=== PATIENT | female | born 1995 | race Caucasian/White ===

== ENCOUNTER → 2023-01-15 13:11 | Outpatient (BNVA) | payer OTHER, SELFPAY | PROVIDERS: PCP Nurse Practitioner Adult Health; Visit Provider Physician Assistant ==

== ENCOUNTER 2023-02-16 13:16 | Outpatient (AMB) | payer OTHER, SELFPAY ==
--- NOTE | 2023-02-16 13:19 | MHC.OFFVISWM ---
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 Allergies benzonatate Allergy (Verified 02/16/23 13:26) Hives jackfruit Allergy (Intermediate, Uncoded 02/16/23 13:26) Swelling almonds Allergy (Mild, Uncoded 02/16/23 13:26) throat itching Medication List - Last Reconciled 02/16/23 by GRACIE Ruiz cholecalciferol (vitamin D3) 25 mcg PO DAILY citalopram 40 mg PO DAILY cranberry 400 mg PO DAILY desloratadine 5 mg PO QID epinastine 0.05% 1 drp ophthalmic (eye) Q12H epinephrine 0.3 mg IM Q4H PRN fluticasone propionate 50 mcg/actuation (Flonase Allergy Relief) 1 spray intranasal DAILY fluticasone propionate 110 mcg/actuation (Flovent HFA) 1 puff inhalation BID norethindrone (contraceptive) 0.35 mg PO DAILY HPI HPI Comments History of Present Illness Details Pt is here to start the [facility] weight loss program. She heard about our program from her family. Her goal is to lose weight and achieve a healthy lifestyle as well as to improve, if not resolve, obesity related medical conditions, including sarah, htn. She reports first being concerned about her weight lifelong, worse in the last 3-4 years, highest weight to date was 279. Current weight is 279 with a BMI of 47.9. She has tried multiple methods of weight loss including fad diets, diet pills without permanent results. She lives alone. 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 She wakes at:?7 am, and goes to bed at?11 pm. Dinner is at 7 pm. Breakfast: skip or yogurt or pudding or oatmeal AM snack: skip Lunch: fast food PM snack: skip Dinner: pasta, After dinner: skip Other snacks: chips Liquids: 16 oz water, 2 cans diet coke, 100 oz iced tea or lemonade Alcohol/marijuana/tobacco intake: 2-4 drinks per week, no cannabis, no tobacco Exercise: none, gym membership at [employer] in [place]. GERD score: 21 MYRTLE score: 3 ESS score: 17 QOL score: 117 PFSH Surgical History Hx of colonoscopy Hx of wisdom tooth extraction Family History Mother Asthma Hypothyroid Restless leg syndrome Anxiety Sleep disorder Father GERD (gastroesophageal reflux disease) Seasonal allergies Brother No problems noted. Brother Seasonal allergies Maternal Grandfather Heart attack Social History Alcohol intake: current Alcohol intake frequency: a few times a week Patient Tobacco Use Status: Never used Tobacco Review of Systems Const All systems reviewed & are unremarkable except as noted in HPI and below Physical Exam Vital Signs: Last Vital Signs Temp 98.1 F 02/16/23 13:29 Pulse 92 02/16/23 13:29 BP 129/73 02/16/23 13:29 Pulse Ox 96 02/16/23 13:29 Oxygen Delivery Method Room Air 02/16/23 13:29 BMI result Body Mass Index 47.9 Const General: cooperative, healthy appearing and no acute distress Orientation/consciousness: patient oriented x3 HEENT Head: Yes normal to inspection Ears: hearing grossly normal bilaterally General nose exam: Normal external nose present Face and sinus: Yes normal facial exam Eyes General: appearance normal, both eyes and all related structures Resp Effort & Inspection: normal respiratory effort Auscultation: clear to auscultation bilaterally Cardio Rate: regular rate Rhythm: regular rhythm Heart sounds: S1 normal heart sound present and S2 normal heart sound present GI Inspection: Yes normal to inspection, No distended and Yes obesity Palpation (GI): Soft to palpation, nontender and no guarding Auscultation: normal bowel sounds Skin General skin exam: no rashes or lesions noted Neuro General: patient oriented x3 Extrem General: No edema Psych Appearance: grossly normal Mental Status: mental status grossly normal Speech and movement: Normal speech and movement present Affect: normal affect Attitude: cooperative Assessment & Plan Assessment & Plan (1) Morbid obesity: Code(s): E66.01 - Morbid (severe) obesity due to excess calories Plan: This is a?27 yo female who will start our SWL program to prepare for bariatric surgery.? Blood work, h pylori , CXR, ECG, Abd US and UGI have been ordered. She is being scheduled for RD and BH initial consultations. She will start SWL classes and watch the first three videos before her next appointment. ? Adequate sleep of 7-8 hours per night discussed, awakening at 7 am and going to bed around 11 pm ? Purchase body composition analyzer scale (Blair bryan or Bret recommended) and check weight weekly. The best time to do this is first thing in the morning after going to the bathroom. 1. Nutritional counseling: Be sure to careful read the number of scoops per shake Start with 3 Premier Protein shakes ([employer], [employer], [facility]), (1 scoop in 8 oz low fat unsweetened almond milk or water each) First shake at 8am-10am, Second shake at 12am-2pm 1 protein bar (Fulfil bars at [employer], [facility], or [employer]) at 4pm-6pm. You may substitute a citizen of [place] yogurt w fresh berries as an alternative for the protein bar if you'd like. Dinner at 7pm (8 forks of protein and 8 forks of salad/vegetables). Meal to include lean meat (beef, fish, pork, turkey, chicken), cooked vegetables or a salad with olive oil and/or fruits (berries, pears, apples, kiwi). Avoid salt, breads, potatoes, rice, pasta, desserts. Another shake with 1 scoop in 8 oz unsweetened almond milk at 8pm-10pm. Try to drink 64 oz of water daily and avoid soda and juices. ?2. Each shake would be drunk slowly, like coffee in a period of 2 hours. ?3. Cut each bar in 4 pieces and eat each piece in 30 min ?to make each bar last 2 hours. ?4. I emphasized the importance of measuring accurately the food portion and measure it carefully when serving the food on the plate ?5. The meal portions include 8 full-size forks of meat and 8 full-size forks of salad. You always eat the meat portion but you can replace up to half of the forks of salad/vegetables with rice, potatoes or pasta, or a fruit ?if you like. The less you do it the better weight loss will be. ?6. One full-size fork is what can be scooped on the fork without falling aside and not what can be bit with the fork. Use regular forks like those you find in a typical restaurant. ?7.? Please send me weight measurements as soon as possible and then once a week. Always include your diet and exercise plan. Alternatively come weekly at the office for weight checks and send me the measurements. ?8. Exercise counseling: Begin by watching a stretching for beginners video. Start slowly and begin to stretch your muscles. You should do this before and after each exercise session to prevent injury. Please go to [facility] gym near your home. Ask the title manager or one of the trainers how to use the machines if you are unfamiliar with them. Start elliptical with a resistance of 2. Increase resistance by 1 every 3 min to your most comfortable resistance with a max resistance of 8. Reduce the resistance by 1 every 3 minutes back down to 2 and repeat cycles for 300 calories. Alternatively, start treadmill with a speed of 3.0 and incline of 0, increasing incline by 1 every 3 minutes to the highest comfortable level (max 6 for now) then decrease in the same fashion. Repeat process to a goal of 300 calories. Goal of 2000 calories burned or more weekly. You may also consider use of the stationary bike. The easiest would be to chose the fat-burn or interval training program on the machine and do this until you reach the 300 calorie goal. Alternatively, you can manually adjust the resistance in a similar fashion as mentioned above, (resistance of 2-8 with a goal speed of 12 mph). Tracking calories is essential. 9. Alternatively start walking outside daily, tracking calories with a goal of 300 calories per day, daily. You can download the [employer] which can track your time, distance and calories while walking outside. You press start in the corbin when you start and then stop when you are finished. 10.? It is important to avoid and for at least 18 months postoperatively and it has been discussed at the information session 11. Please get labs, EKG and chest X-Ray within 1 week. 12. Discussed and answered all questions regarding?obtained consent to participate in the [facility]?Registry. 13. Please follow the diet plan exactly, without any change. If you do not like something about the plan or you feel hungry, you need to communicate with me so I can help you revise the plan. You should not change the plan yourself. Text me at [phone] 14. Goal is to lose at least 12 pounds in the first month 15. Goal is to lose 10% of your weight before surgery, which is about 28 lbs. Ultimate weight goal: 251 lbs before surgery Patient is morbidly obese and is not considered stable at this time.?I spent a total of 70 minutes reviewing/updating records, examining the patient and counseling the patient on weight management as detailed above. Orders: Orders Vitamin B12 and Folate Today E66.01 - Morbid (severe) obesity due to excess calories, I10 - Essential (primary) hypertension Comprehensive Met. Panel Today E66.01 - Morbid (severe) obesity due to excess calories, I10 - Essential (primary) hypertension C Reactive Protein Today E66.01 - Morbid (severe) obesity due to excess calories, I10 - Essential (primary) hypertension Ferritin Today E66.01 - Morbid (severe) obesity due to excess calories, I10 - Essential (primary) hypertension Hemoglobin A1c Today E66.01 - Morbid (severe) obesity due to excess calories, I10 - Essential (primary) hypertension Insulin Today E66.01 - Morbid (severe) obesity due to excess calories, I10 - Essential (primary) hypertension IRON PROFILE Today E66.01 - Morbid (severe) obesity due to excess calories, I10 - Essential (primary) hypertension Lipid Panel Today E66.01 - Morbid (severe) obesity due to excess calories, I10 - Essential (primary) hypertension PTHI Today E66.01 - Morbid (severe) obesity due to excess calories, I10 - Essential (primary) hypertension TSH reflex Free T4 Today E66.01 - Morbid (severe) obesity due to excess calories, I10 - Essential (primary) hypertension Vitamin A Today E66.01 - Morbid (severe) obesity due to excess calories, I10 - Essential (primary) hypertension Vitamin B1 Today E66.01 - Morbid (severe) obesity due to excess calories, I10 - Essential (primary) hypertension Vitamin D 25-OH Total Today E66.01 - Morbid (severe) obesity due to excess calories, I10 - Essential (primary) hypertension Zinc Today E66.01 - Morbid (severe) obesity due to excess calories, I10 - Essential (primary) hypertension ECG 12 lead EKG Today E66.01 - Morbid (severe) obesity due to excess calories, I10 - Essential (primary) hypertension FL upper GI w air Today E66.01 - Morbid (severe) obesity due to excess calories, I10 - Essential (primary) hypertension Complete Blood Count Auto Diff Today E66.01 - Morbid (severe) obesity due to excess calories, I10 - Essential (primary) hypertension H Pylori Breath Test Today E66.01 - Morbid (severe) obesity due to excess calories, I10 - Essential (primary) hypertension US abdomen comp w elastography Today E66.01 - Morbid (severe) obesity due to excess calories, I10 - Essential (primary) hypertension XR chest 2V Today E66.01 - Morbid (severe) obesity due to excess calories, I10 - Essential (primary) hypertension Referrals Behavioral Health Referral E66.01 - Morbid (severe) obesity due to excess calories, I10 - Essential (primary) hypertension Nutrition/Dietitian Referral E66.01 - Morbid (severe) obesity due to excess calories, I10 - Essential (primary) hypertension Coding Level of Care Code New Pt Level 5 (61527) Diagnoses Morbid obesity E66. Time Spent (min) 70
[2023-02-16 13:29] VITALS: BP 129/73; PULSE 92; TEMP 36.7; O2SAT 96; BMI 47.9
== END 2023-02-16 14:23 | disposition home or self-care (01) ==
PROVIDERS: PCP Nurse Practitioner Adult Health; Visit Provider Physician Assistant Surgical
DX: E66.01 Morbid (severe) obesity due to excess calories (principal); Z68.42 Body mass index [BMI] 45.0-49.9, adult
CPT/HCPCS: 99205

== ENCOUNTER → 2023-02-16 13:16 | Outpatient (BNVA) | payer OTHER, SELFPAY | PROVIDERS: PCP Nurse Practitioner Adult Health; Visit Provider Physician Assistant Surgical ==

== ENCOUNTER 2023-02-16 16:07 | Outpatient (REF) | payer OTHER, SELFPAY ==
[2023-02-22 14:57] LABS: H Pylori Breath Test Negative (Negative)
== END 2023-02-16 16:08 | disposition home or self-care (01) ==
LOC: HO.LNP 16:07
PROVIDERS: Visit Provider Physician Assistant Surgical
DX: E66.01 Morbid (severe) obesity due to excess calories (principal); I10 Essential (primary) hypertension; Z11.0 Encounter for screening for intestinal infectious diseases
CPT/HCPCS: 83013

== ENCOUNTER 2023-02-20 08:09 | Outpatient (REF) | payer OTHER, SELFPAY ==
--- NOTE | ~2023-02-20 | XR_ITS ---
EXAMINATION: XR CHEST CLINICAL INFORMATION: Morbid obesity COMPARISON: None available. TECHNIQUE: 2 views of the chest were obtained. FINDINGS: No significant abnormality is noted involving the heart, lungs, mediastinum, bony thorax or soft tissues. XR/XR chest 2V IMPRESSION: No acute disease.
--- NOTE | 2023-02-20 08:16 | ECG_ITS ---
Test Reason : morbid obesity Blood Pressure : / mmHG Vent. Rate : 083 BPM Atrial Rate : 083 BPM P-R Int : 150 ms QRS Dur : 074 ms QT Int : 362 ms P-R-T Axes : 052 068 045 degrees QTc Int : 425 ms Normal sinus rhythm Normal ECG No previous ECGs available Referred By: Trevor Cerad Electronically Signed By:ELEAZAR RANDALL MD
[2023-02-20 08:39] LABS: MANUAL DIFF FLAG NO
[2023-02-20 08:58] LABS: Basophils Percent Auto 0.5 % (0-2); Eosinophils Absolute Auto 0.1 X10*3/uL (0.0-0.4); Eosinophils Percent Auto 1.8 % (0-4); Hematocrit 39.1 % (37.0-47.0); Hemoglobin 13.2 g/dl (12.0-16.0); Imm Gran Abs Auto 0.02 X10*3/uL (0.00-0.03); Imm Gran Pct Auto 0.3 % (0.0-0.4); Lymphocytes Absolute Auto 1.8 X10*3/uL (1.2-4.9); Lymphocytes Percent Auto 29.3 % (20-40); Mean Corpuscular HGB Conc 33.8 g/dl (31.0-35.0); Mean Corpuscular Hemoglobin 30.5 pg (27.0-33.0); Mean Corpuscular Volume 90.3 fL (80.0-98.0); Mean Platelet Volume 10.1 fL (9.4-12.3); Monocytes Absolute Auto 0.5 X10*3/uL (0.1-1.2); Monocytes Percent Auto 7.5 % (2-11); Neutrophils Absolute Auto 3.8 x10*3/uL (2.0-8.3); Neutrophils Percent Auto 60.6 % (45-73); Platelet Count 284 X10*3/uL (160-400); Red Blood Count 4.33 X10*6/uL (4.20-5.50); Red Cell Distribution Width 12.3 % (11.0-16.0); White Blood Count 6.3 X10*3/uL (4.8-10.8)
[2023-02-20 09:08] LABS: Estimated Average Glucose 85 mg/dL; Hemoglobin A1C 93.6048 umol/L; Hemoglobin A1c % 4.6 %
[2023-02-20 09:34] LABS: Alanine Aminotransferase 18 U/L (0-31); Albumin Level 4.2 g/dL (3.5-5.0); Alkaline Phosphatase 148 U/L (39-117); Anion Gap 17 (12-20); Aspartate Amino Transferase 18 U/L (5-31); Bilirubin Total 0.6 mg/dL (0.0-1.0); Blood Urea Nitrogen 14 mg/dL (9-16); C Reactive Protein 2.77 mg/dL (< or = 0.50); Calcium 9.5 mg/dL (8.4-10.2); Carbon Dioxide 19 mmol/L (22-29); Chloride 105 mmol/L (96-108); Cholesterol 192 mg/dL; Estimated Glomerular Filt Rate > 60; Glucose Random 74 mg/dL (60-115); HDL Cholesterol 35 mg/dL; Iron 75 mcg/dL (30-160); LDL Cholesterol Calculated 141 mg/dl; Percent Iron Saturation 30 % (15-50); Potassium 4.3 mmol/L (3.3-5.1); Sodium 137 mmol/L (135-145); Total Iron Binding Capacity 249 mcg/dL (228-428); Total Protein 7.3 g/dL (6.5-8.0); Triglycerides 82 mg/dL; Unsaturated Iron Binding 174 ug/dL
[2023-02-20 10:01] LABS: Ferritin 128 ng/mL (10-122); Insulin 6 uU/mL (2-29); TSH reflex Free T4 1.49 uIU/mL (0.32-4.0); Vitamin D 25-OH Total 28.6 ng/mL (>30)
[2023-02-20 10:02] LABS: Folate 14.4 ng/mL (> or = 4.0); Vitamin B12 530 pg/mL (200-900)
[2023-02-23 13:23] LABS: Calcium (PTHI) 9.3 mg/dL (8.6-10.2); PTHI 68 pg/mL (16-77)
[2023-02-25 01:23] LABS: Zinc 79 mcg/dL (60-130)
[2023-02-26 02:48] LABS: Vitamin A 32 mcg/dL (38-98)
[2023-02-26 15:58] LABS: Vitamin B1 10 nmol/L (8-30)
== END 2023-02-20 08:10 | disposition home or self-care (01) ==
LOC: HO.LAB 08:09
PROVIDERS: Visit Provider Physician Assistant Surgical
DX: E66.01 Morbid (severe) obesity due to excess calories (principal); I10 Essential (primary) hypertension
CPT/HCPCS: 36415; 71046; 80053; 80061; 82306; 82607; 82728; 82746; 83036; 83525; 83540; 83970; 84425; 84443; 84590; 84630; 85025; 86140; 93005

== ENCOUNTER → 2023-02-20 08:16 | Outpatient (BNV) | payer OTHER, SELFPAY | PROVIDERS: Visit Provider Internal Medicine Cardiovascular Disease | DX: E66.01 Morbid (severe) obesity due to excess calories (principal) | CPT/HCPCS: 93010 ==

== ENCOUNTER 2023-03-03 13:14 | Outpatient (AMB) | payer OTHER, SELFPAY ==
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
== END 2023-03-03 13:45 | disposition home or self-care (01) ==
LOC: HO.HBST 13:14
PROVIDERS: Referring Provider Physician Assistant Surgical; Visit Provider Counselor Mental Health
DX: F33.1 Major depressive disorder, recurrent, moderate (principal); E66.01 Morbid (severe) obesity due to excess calories; Z68.42 Body mass index [BMI] 45.0-49.9, adult
CPT/HCPCS: 90791

== ENCOUNTER → 2023-03-03 13:14 | Outpatient (BNVA) | payer OTHER, SELFPAY | PROVIDERS: Referring Provider Physician Assistant Surgical; Visit Provider Counselor Mental Health ==

== ENCOUNTER 2023-03-06 08:05 | Outpatient (REF) | payer OTHER, SELFPAY ==
--- NOTE | ~2023-03-06 | US_ITS ---
EXAMINATION: US COMPLETE ABDOMEN WITH LIVER ELASTOGRAPHY CLINICAL INFORMATION: Obesity. COMPARISON: None available. TECHNIQUE: Real-time imaging of the abdominal viscera. Noninvasive ultrasound liver fibrosis assessment is performed using Naman ElastPQ point quantification shear wave elastography (2D-SWE) with a C5-2 MHz transducer. Multiple elastography samples are obtained. FINDINGS: PANCREAS: Limited. The visualized pancreatic head and body are normal in appearance. The remainder of the pancreas is obscured from visualization by the overlying bowel gas. ABDOMINAL AORTA: The proximal, middle, and distal aortic segments are normal in caliber. INFERIOR VENA CAVA: Visualized portions are normal. LIVER: Normal. The liver demonstrates normal size, contour and echogenicity. No focal lesion or intrahepatic biliary duct dilatation. The right lobe measures 14.8 cm in length. The left lobe measures 8.8 cm in length. Portal flow is towards the liver (hepatopetal). Shear wave liver elastography median stiffness is 1.25 m/s (reference: normal median stiffness is 1.3 m/s or less). IQR/median stiffness to assess sampling precision is 0.07 (reference: good quality data set is IQR/median stiffness of 0.15 or less). GALLBLADDER: Normal. The gallbladder is physiologically distended without evidence of stones, sludge, polyps, wall thickening or pericholecystic fluid. COMMON BILE DUCT: Normal in caliber measuring 0.2 cm in diameter. RIGHT KIDNEY: Normal. No hydronephrosis. No renal calculi or focal parenchymal lesions. The kidney measures 10.5 cm in maximum dimension. LEFT KIDNEY: Normal. No hydronephrosis. No renal calculi or focal parenchymal lesions. The kidney measures 11.9 cm in maximum dimension. SPLEEN: Normal. The spleen measures 11.8 cm in maximum dimension. FREE FLUID: None. US/US abdomen comp w elastography IMPRESSION: 1. Unremarkable ultrasound examination of the abdomen, with imaging the pancreatic tail technically limited. 2. Liver elastography: Measurements are consistent with a high probability of normal liver stiffness. REFERENCE: Society of Radiologists in Ultrasound Liver Stiffness Thresholds (2020): LIVER STIFFNESS THRESHOLDS: *Liver Stiffness equal or less than 1.3 m/s: High probability of being normal. *Liver Stiffness less than 1.7 m/s: In the absence of other known clinical signs, rules out compensated advanced chronic liver disease. *Liver Stiffness 1.7-2.1 m/s: Suggestive of compensated advanced chronic liver disease but need further test for confirmation. *Liver Stiffness over 2.1 m/s: Rules in compensated advanced chronic liver disease. *Liver Stiffness over 2.4 m/s: Suggestive of clinically significant portal hypertension. QUALITY OF DATA SET: *IQR/Median value equal or less than 0.15 implies a quality data set. *IQR/Median value over 0.15 implies a poor quality data set. SIGNIFICANT CHANGE FROM PRIOR EXAM: Significant change if liver stiffness measurement is 10% or greater from prior exam. OTHER CONSIDERATIONS: The stage of liver fibrosis may be overestimated in the setting of acute hepatitis, liver inflammation, elevated liver function tests, hepatic vascular congestion, obstructive cholestasis, non-fasting state, and infiltrative diseases such as amyloidosis and lymphoma. In some patients with NAFLD, the liver stiffness thresholds for compensated advanced chronic liver disease may be lower. In causes other than viral hepatitis and NAFLD, liver stiffness thresholds are not well established.
== END 2023-03-06 08:06 | disposition home or self-care (01) ==
LOC: HO.US 08:05
PROVIDERS: Visit Provider Physician Assistant Surgical
DX: E66.01 Morbid (severe) obesity due to excess calories (principal); I10 Essential (primary) hypertension
CPT/HCPCS: 76705; 76981

== ENCOUNTER → 2023-03-09 14:24 | Outpatient (BNVA) | payer OTHER, SELFPAY | PROVIDERS: Referring Provider Physician Assistant Surgical; Visit Provider Dietitian, Registered | DX: Z01.818 Encounter for other preprocedural examination (principal); Z71.3 Dietary counseling and surveillance | CPT/HCPCS: 97802 ==

== ENCOUNTER 2023-03-17 15:48 | Outpatient (AMB) | payer OTHER, SELFPAY ==
--- NOTE | 2023-03-17 15:51 | A.OFFVIS_ITS ---
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 Allergies benzonatate Allergy (Verified 03/17/23 15:56) Hives jackfruit Allergy (Intermediate, Uncoded 02/16/23 13:26) Swelling almonds Allergy (Mild, Uncoded 02/16/23 13:26) throat itching Medication List - Last Reconciled 03/17/23 by GRACIE Ruiz cholecalciferol (vitamin D3) 25 mcg PO DAILY citalopram 40 mg PO DAILY cranberry 400 mg PO DAILY desloratadine 5 mg PO QID epinastine 0.05% 1 drp ophthalmic (eye) Q12H epinephrine 0.3 mg IM Q4H PRN fluticasone propionate 50 mcg/actuation (Flonase Allergy Relief) 1 spray intranasal DAILY fluticasone propionate 110 mcg/actuation (Flovent HFA) 1 puff inhalation BID lisinopril 20 mg PO DAILY norethindrone (contraceptive) 0.35 mg PO DAILY vitamin A 1 cap PO DAILY HPI HPI Comments History of Present Illness Details The patient is a pleasant 27 year old female who returns to the clinic for pre-operative surgical weight loss management. They were last seen in the office on 02/16/23, recorded weight at that time was 279 pounds, with a BMI of 47.9. Today's weight is 265.8 pounds and BMI is 45.6. There has been a weight loss of 13.2 pounds since initiating the surgical weight loss program on 02/16/23 with a total body weight loss of 4.7 %. Pre op work up completed as follows: SWL classes:? []/8 BH appts: f/u 03/26/23 ? ? RD appts: cleared-03/09/23 Labs: 02/20/23-low A,D H. pylori: 02/16/23-neg CXR: 02/20/23-nad EK02/20/23-normal ABD U/S: 03/06/23-normal UGI: 05/11/23 The patient reports she is doing very well and has no complaints. Current meal plan includes: 2 Premier Protein shakes ([employer], [employer], [facility]), First shake, 2 scoops at 8am-10am, Second shake, 1 scoop at 12am-2pm 1 protein bar (Fulfil bars at [employer], [facility], or [employer]) at 4pm-6pm. You may substitute a somali yogurt w fresh berries as an alternative for the protein bar if you'd like. Dinner at 7pm (8 forks of protein and 8 forks of salad/vegetables). Drinking 50-60 oz of water Current exercise plan includes: gym daily treadmill or bike 300 calories. PFSH Surgical History Hx of colonoscopy Hx of wisdom tooth extraction Family History Mother Asthma Hypothyroid Restless leg syndrome Anxiety Sleep disorder Father GERD (gastroesophageal reflux disease) Seasonal allergies Brother No problems noted. Brother Seasonal allergies Maternal Grandfather Heart attack Social History Alcohol intake: current Alcohol intake frequency: a few times a week Patient Tobacco Use Status: Never used Tobacco Review of Systems Const All systems reviewed & are unremarkable except as noted in HPI and below Physical Exam Vital Signs: Last Vital Signs Temp 98.2 F 03/17/23 15:59 Pulse 81 03/17/23 15:59 BP 130/69 03/17/23 15:59 Pulse Ox 96 03/17/23 15:59 Oxygen Delivery Method Room Air 03/17/23 15:59 BMI result Body Mass Index 45.6 Const General: healthy appearing and no acute distress Resp Effort & Inspection: normal respiratory effort Auscultation: clear to auscultation bilaterally Cardio Rate: regular rate Rhythm: regular rhythm GI Auscultation: normal bowel sounds Extrem General: Yes normal to inspection Assessment & Plan Assessment & Plan (1) Morbid obesity: Code(s): E66.01 - Morbid (severe) obesity due to excess calories Plan: Making good progress Continue meal plan Increase incline on treadmill and keep speed 3.2 RTC 1 month reminded of upcoming appts Coding Level of Care Code Est Pt Level 3 (21053) Diagnoses Morbid obesity E66.01
[2023-03-17 15:59] VITALS: BP 130/69; PULSE 81; TEMP 36.8; O2SAT 96; BMI 45.6
== END 2023-03-17 16:25 | disposition home or self-care (01) ==
PROVIDERS: PCP Nurse Practitioner Adult Health; Visit Provider Physician Assistant Surgical
DX: E66.01 Morbid (severe) obesity due to excess calories (principal); Z68.42 Body mass index [BMI] 45.0-49.9, adult
CPT/HCPCS: 99213

== ENCOUNTER → 2023-03-17 15:48 | Outpatient (BNVA) | payer OTHER, SELFPAY | PROVIDERS: PCP Nurse Practitioner Adult Health; Visit Provider Physician Assistant Surgical ==

== ENCOUNTER 2023-03-26 13:05 | Outpatient (AMB) | payer OTHER, SELFPAY ==
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
== END 2023-03-26 13:25 | disposition home or self-care (01) ==
LOC: HO.HBST 13:05
PROVIDERS: PCP Nurse Practitioner Adult Health; Visit Provider Counselor Mental Health
DX: F33.1 Major depressive disorder, recurrent, moderate (principal); E66.01 Morbid (severe) obesity due to excess calories; Z68.42 Body mass index [BMI] 45.0-49.9, adult
CPT/HCPCS: 90832

== ENCOUNTER → 2023-03-26 13:05 | Outpatient (BNVA) | payer OTHER, SELFPAY | PROVIDERS: PCP Nurse Practitioner Adult Health; Visit Provider Counselor Mental Health ==

== ENCOUNTER 2023-04-15 15:47 | Outpatient (AMB) | payer OTHER, SELFPAY ==
--- NOTE | 2023-04-15 15:52 | A.OFFVIS_ITS ---
Intake VS Expanded 04/15/23 15:58 Height 5 ft 4 in Weight 256 lb 3.2 oz BMI 44.0 BP 121/67 Blood Pressure Location Rt brachial Blood Pressure Position Sitting Respiratory Rate 16 Pulse 87 Pulse Source Pulse Oximeter Temp 98.1 F Temperature Source Temporal Artery Scan Pulse Oximetry 97 Oxygen Delivery Method Room Air Body Fat 127.6 Body Fat Percentage 49.8 Free Fat Mass 128.6 Muscle Mass 122.2 Visceral Mass 13.0 Water Mass 92.4 BMR 1,887 Intake Visit Reasons: (OV) F/U SWL Project Admin Required: No Allergies benzonatate Allergy (Verified 04/15/23 15:57) Hives jackfruit Allergy (Intermediate, Uncoded 04/15/23 15:57) Swelling almonds Allergy (Mild, Uncoded 04/15/23 15:57) throat itching Medication List - Last Reconciled 04/15/23 by GRACIE Ruiz cholecalciferol (vitamin D3) 25 mcg PO DAILY citalopram 40 mg PO DAILY cranberry 400 mg PO DAILY desloratadine 5 mg PO QID epinastine 0.05% 1 drp ophthalmic (eye) Q12H epinephrine 0.3 mg IM Q4H PRN fluticasone propionate 50 mcg/actuation (Flonase Allergy Relief) 1 spray intranasal DAILY fluticasone propionate 110 mcg/actuation (Flovent HFA) 1 puff inhalation BID lisinopril 20 mg PO DAILY norethindrone (contraceptive) 0.35 mg PO DAILY vitamin A 1 cap PO DAILY HPI HPI Comments History of Present Illness Details The patient is a pleasant 27 year old female who returns to the clinic for pre-operative surgical weight loss management. They were last seen in the office on 03/17/23, recorded weight at that time was 265.8 pounds, with a BMI of 45.6. Today's weight is 256.2 pounds and BMI is 44. There has been a weight loss of 22.8 pounds since initiating the surgical weight loss program on 02/16/23 with a total body weight loss of 8.1 %. Pre op work up completed as follows: SWL classes:? 03/03 BH appts: cleared-03/26/23 ? ? RD appts: cleared-03/09/23 Labs: 02/20/23-low A,D H. pylori: 02/16/23-neg CXR: 02/20/23-nad EK02/20/23-normal ABD U/S: 03/06/23-normal UGI: 05/11/23 The patient reports she is doing very well and has no complaints. Current meal plan includes: 2 Premier Protein shakes ([employer], [employer], [employer]), using RTD (11 oz per 30 gm shake) adding 7 oz water to first shake and drinking over 2 hours, for the second shake adding 7 oz of water but only drinking 1/2 of the product and putting the other 1/2 in the fridge for the next day. First shake, 2 scoops at 8am-10am, Second shake, 1 scoop at 12am-2pm 1 protein bar (Fulfil bars at [employer], [facility], or [employer]) at 4pm-6pm. You may substitute a belarusian yogurt w fresh berries as an alternative for the protein bar if you'd like. Dinner at 7pm (8 forks of protein and 8 forks of salad/vegetables). Drinking 50-60 oz of water Current exercise plan includes: None in the past week due to vacation gym daily treadmill or bike 300 calories. speed 3.2 incline 0-5, daily PFSH Surgical History Hx of wisdom tooth extraction Hx of colonoscopy Family History Mother Asthma Hypothyroid Restless leg syndrome Anxiety Sleep disorder Father GERD (gastroesophageal reflux disease) Seasonal allergies Brother No problems noted. Brother Seasonal allergies Maternal Grandfather Heart attack Social History Alcohol intake: current Alcohol intake frequency: a few times a week Patient Tobacco Use Status: Never used Tobacco Review of Systems Const All systems reviewed & are unremarkable except as noted in HPI and below Physical Exam Const General: healthy appearing and no acute distress Resp Effort & Inspection: normal respiratory effort Auscultation: clear to auscultation bilaterally Cardio Rate: regular rate Rhythm: regular rhythm GI Auscultation: normal bowel sounds Extrem General: Yes normal to inspection Assessment & Plan Assessment & Plan (1) Morbid obesity: Code(s): E66.01 - Morbid (severe) obesity due to excess calories Plan: She will be transferred to Dr Medina for further pre-op care. She needs a three month participation in the program prior to submission for surgery and this will complete 05/20/23. She has made excellent choices and progress in her weight loss and is clearly committed to the process. She will continue current meal plan. Reminded of upcoming appt. for UGI Encouraged to increase incline of treadmill to 6 or 7. maintain speed 3.2 Coding Level of Care Code Est Pt Level 3 (48501) Diagnoses Morbid obesity E66.01
[2023-04-15 15:58] VITALS: BP 121/67; PULSE 87; RESP 16; TEMP 36.7; O2SAT 97; BMI 44.0
== END 2023-04-15 16:17 | disposition home or self-care (01) ==
PROVIDERS: PCP Nurse Practitioner Adult Health; Visit Provider Physician Assistant Surgical
DX: E66.01 Morbid (severe) obesity due to excess calories (principal); Z68.41 Body mass index [BMI] 40.0-44.9, adult
CPT/HCPCS: 99213

== ENCOUNTER → 2023-04-15 15:47 | Outpatient (BNVA) | payer OTHER, SELFPAY | PROVIDERS: PCP Nurse Practitioner Adult Health; Visit Provider Physician Assistant Surgical ==

== ENCOUNTER 2023-04-16 11:28 | Outpatient (AMB) | payer OTHER, SELFPAY ==
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
== END 2023-05-26 10:03 | disposition home or self-care (01) ==
LOC: HO.HBST 11:28
PROVIDERS: PCP Nurse Practitioner Adult Health; Visit Provider Counselor Mental Health
DX: F33.1 Major depressive disorder, recurrent, moderate (principal); E66.01 Morbid (severe) obesity due to excess calories; Z68.41 Body mass index [BMI] 40.0-44.9, adult
CPT/HCPCS: 90832

== ENCOUNTER → 2023-04-16 11:28 | Outpatient (BNVA) | payer OTHER, SELFPAY | PROVIDERS: PCP Nurse Practitioner Adult Health; Visit Provider Counselor Mental Health ==

== ENCOUNTER 2023-04-27 14:14 | Outpatient (AMB) | payer OTHER, SELFPAY ==
--- NOTE | 2023-04-27 14:17 | MHC.OFFVISWM ---
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 She returns today at 254.0/BMI 43.6 representing a 25 lb weight loss. She has tried numerous fad diets, portion control and exercise routine without success and is interested in a laparoscopic sleeve gastrectomy for weight loss and improvement of her hypertension and obstructive sleep apnea. Patient reports undergoing a sleep study at [facility] in Nov, 2022. She uses CPAP nightly but still reports non restorative sleep. She notes there is been no follow-up with sleep medicine. GERD 21 ESS 17 MYRTLE 3 QOL 117 We discussed her [place] Sleep Scale score and the patient admits that she was diagnosed with obstructive sleep apnea at [facility] this past Nov, 2022. She is using CPAP is ordered and reports ongoing daytime fatigue. She has not contacted them since she was told that they would arrange follow-up. The importance of addressing this preoperatively was reviewed. I will ask my office to help facilitate communication between the patient in sleep medicine at [facility]. Pre op work up completed as follows: SWL classes:? 03/03 BH appts: cleared-03/26/23 ? ? RD appts: cleared-03/09/23 Labs: 02/20/23-low A,D H. pylori: 02/16/23-neg CXR: 02/20/23-nad EK02/20/23-normal ABD U/S: 03/06/23-normal UGI: 05/11/23 Current meal plan includes: 2 Premier Protein shakes ([employer], [employer], [employer]), using RTD (11 oz per 30 gm shake) adding 7 oz water to first shake and drinking over 2 hours, for the second shake adding 7 oz of water but only drinking 1/2 of the product and putting the other 1/2 in the fridge for the next day. First shake, 2 scoops at 8am-10am, Second shake, 1 scoop at 12am-2pm 1 protein bar (Fulfil bars at [employer], [facility], or [employer]) at 4pm-6pm. You may substitute a spanish yogurt w fresh berries as an alternative for the protein bar if you'd like.Dinner at 7pm (8 forks of protein and 8 forks of salad/vegetables). PFSH Surgical History Hx of wisdom tooth extraction Hx of colonoscopy Family History Mother Asthma Hypothyroid Restless leg syndrome Anxiety Sleep disorder Father GERD (gastroesophageal reflux disease) Seasonal allergies Brother No problems noted. Brother Seasonal allergies Maternal Grandfather Heart attack Social History Alcohol intake: current Alcohol intake frequency: holidays/special occasions only Patient Tobacco Use Status: Never used Tobacco Physical Exam On exam, the patient is nontoxic and in good spirits Sclera anicteric She is in no respiratory distress Abdomen is obese Results Reviewed Results Reviewed: labs 02/20/23 Hb 13.2 N/N, wbc 6.3, Plts 284K Fe wnl Vit A low replaced; Vit D low replaced Alk phos 148 CRP 2.77 BUN 14, Cr 0.66 Diag imaging CXR NAD Abd U/S liver, nml stiffness UGI pending Assessment & Plan Assessment & Plan (1) Morbid obesity: Code(s): E66.01 - Morbid (severe) obesity due to excess calories (2) JOURDAN (obstructive sleep apnea): Code(s): G47.33 - Obstructive sleep apnea (adult) (pediatric) (3) HTN (hypertension): Code(s): I10 - Essential (primary) hypertension (4) Major depressive disorder, recurrent, moderate: Code(s): F33.1 - Major depressive disorder, recurrent, moderate (5) Non-restorative sleep: Code(s): G47.8 - Other sleep disorders Plan The patient is congratulated on her interval weight loss and healthy lifestyle changes. Options of medical weight loss versus operative intervention, specifically, a laparoscopic sleeve gastrectomy, possible hiatal hernia repair, intraoperative upper endoscopy and possible ventral hernia repair were discussed and the patient seemed understand her options and would like to proceed The inherent risks to surgery including, but not limited to bleeding that could require reoperation or blood transfusion, weight regain if maladaptive eating and sedentary behavior resume, risk of DVT that could cause fatal PE, possible need for open surgery were discussed. The patient seems to understand her choices and would like to proceed. Will submit to her insurance; patient has an upper GI pending. Will send a copy of this note to her sleep medicine team at [facility] since she is reporting ongoing fatigue in spite of her CPAP and prior history of JOURDAN. I reviewed typical liver shrinking diet, preoperative bowel prep, perioperative course and the need to be out of work for 1-2 weeks, depending on her recovery. The importance of hydration, protein goals and activity were all discussed and questions answered. Two samples of celebrate were provided by Carleen Kenyon. I will see the patient back at the end of the month. My cell phone number, instructions to prevent constipation were also provided to the patient. Coding Level of Care Code Est Pt Level 4 (83347) Diagnoses Morbid obesity E66.01 JOURDAN (obstructive sleep apnea) G47.33 HTN (hypertension) I10 Major depressive disorder, recurrent, moderate F33.1 Non-restorative sleep G47.8
[2023-04-27 14:20] VITALS: BP 126/67; PULSE 98; TEMP 36.4; O2SAT 96; BMI 43.6
== END 2023-04-27 15:27 | disposition home or self-care (01) ==
PROVIDERS: PCP Nurse Practitioner Adult Health; Visit Provider Surgery
DX: E66.01 Morbid (severe) obesity due to excess calories (principal); Z68.41 Body mass index [BMI] 40.0-44.9, adult; I10 Essential (primary) hypertension; G47.33 Obstructive sleep apnea (adult) (pediatric); F33.1 Major depressive disorder, recurrent, moderate; G47.8 Other sleep disorders
CPT/HCPCS: 99214

== ENCOUNTER → 2023-04-27 14:14 | Outpatient (BNVA) | payer OTHER, SELFPAY | PROVIDERS: PCP Nurse Practitioner Adult Health; Visit Provider Surgery ==

== ENCOUNTER 2023-05-11 08:02 | Outpatient (REF) | payer OTHER, SELFPAY ==
--- NOTE | ~2023-05-11 | FL_ITS ---
EXAMINATION: XR FLUOROSCOPY UPPER GI WITH AIR CLINICAL INFORMATION: Obesity COMPARISON: None available. TECHNIQUE: Upper GI was performed using thin and thick barium and effervescent granules FINDINGS: Esophageal motility is normal. There is gastroesophageal reflux. No hernia is seen. The stomach and duodenum are normal-appearing. No fold thickening, mass, ulcer or stricture. FLUOROSCOPY TIME: 18 seconds DOSE AREA PRODUCT: 429 uGy-m2 (microgray-meter squared). Total dose 9.7 mgy. 16 saved fluoroscopic images FL/FL upper GI w air IMPRESSION: Gastroesophageal reflux otherwise unremarkable exam.
== END 2023-05-11 08:03 | disposition home or self-care (01) ==
LOC: HO.XRAY 08:02
PROVIDERS: PCP Nurse Practitioner Adult Health; Visit Provider Physician Assistant Surgical
DX: E66.01 Morbid (severe) obesity due to excess calories (principal); I10 Essential (primary) hypertension
CPT/HCPCS: 74246

== ENCOUNTER → 2023-05-11 08:04 | Outpatient (BNV) | payer OTHER, SELFPAY | PROVIDERS: PCP Nurse Practitioner Adult Health; Visit Provider Radiology Diagnostic Radiology | DX: R13.10 Dysphagia, unspecified (principal) | CPT/HCPCS: 74221; 74246 ==

== ENCOUNTER 2023-05-20 08:11 | Outpatient (AMB) | payer OTHER, SELFPAY ==
--- NOTE | 2023-05-20 08:13 | A.OFFVIS_ITS ---
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 She returns today at 254.0/BMI 43.6 representing a 25 lb weight loss. She has tried numerous fad diets, portion control and exercise routine without success and is interested in a laparoscopic sleeve gastrectomy for weight loss and improvement of her hypertension and obstructive sleep apnea. Patient reports undergoing a sleep study at [facility] in Nov, 2022. She uses CPAP nightly but still reports non restorative sleep. She notes there is been no follow-up with sleep medicine. GERD 21 ESS 17 MYRTLE 3 QOL 117 We discussed her [place] Sleep Scale score and the patient admits that she was diagnosed with obstructive sleep apnea at [facility] this past Nov, 2022. She is using CPAP is ordered and reports ongoing daytime fatigue. She has not contacted them since she was told that they would arrange follow-up. The importance of addressing this preoperatively was reviewed. I will ask my office to help facilitate communication between the patient in sleep medicine at [facility]. Pre op work up completed as follows: SWL classes:? 03/03 BH appts: cleared-03/26/23 ? ? RD appts: cleared-03/09/23 Labs: 02/20/23-low A,D H. pylori: 02/16/23-neg CXR: 02/20/23-nad EK02/20/23-normal ABD U/S: 03/06/23-normal UGI: 05/11/23 Current meal plan includes: 2 Premier Protein shakes ([employer], [employer], [employer]), using RTD (11 oz per 30 gm shake) adding 7 oz water to first shake and drinking over 2 hours, for the second shake adding 7 oz of water but only drinking 1/2 of the product and putting the other 1/2 in the fridge for the next day. First shake, 2 scoops at 8am-10am, Second shake, 1 scoop at 12am-2pm 1 protein bar (Fulfil bars at [employer], [facility], or [employer]) at 4pm-6pm. You may substitute a martiniquais yogurt w fresh berries as an alternative for the protein bar if you'd like. Dinner at 7pm (8 forks of protein and 8 forks of salad/vegetables). She did not tolerate the celebrate protein shake samples provided. She is exercising 5 days a week burning 300 kcal per exercising session. She is doing cardio. PFSH Surgical History Hx of wisdom tooth extraction Hx of colonoscopy Family History Mother Asthma Hypothyroid Restless leg syndrome Anxiety Sleep disorder Father GERD (gastroesophageal reflux disease) Seasonal allergies Brother No problems noted. Brother Seasonal allergies Maternal Grandfather Heart attack Social History Alcohol intake: current Alcohol intake frequency: holidays/special occasions only Patient Tobacco Use Status: Never used Tobacco Review of Systems Const All systems reviewed & are unremarkable except as noted in HPI and below Reports as per HPI Results Reviewed Results Reviewed: labs 02/20/23 Hb 13.2 N/N, wbc 6.3, Plts 284K Fe wnl Vit A low replaced; Vit D low replaced Alk phos 148 CRP 2.77 BUN 14, Cr 0.66 Diag imaging CXR NAD Abd U/S liver, nml stiffness UGI pending Assessment & Plan Assessment & Plan (1) JOURDAN (obstructive sleep apnea): Code(s): G47.33 - Obstructive sleep apnea (adult) (pediatric) (2) HTN (hypertension): Code(s): I10 - Essential (primary) hypertension (3) Major depressive disorder, recurrent, moderate: Code(s): F33.1 - Major depressive disorder, recurrent, moderate (4) Non-restorative sleep: Code(s): G47.8 - Other sleep disorders (5) Morbid obesity: Code(s): E66.01 - Morbid (severe) obesity due to excess calories Plan The patient is congratulated on her interval weight loss and healthy lifestyle changes. Options of medical weight loss versus operative intervention, specifically, a laparoscopic sleeve gastrectomy, possible hiatal hernia repair, intraoperative upper endoscopy and possible ventral hernia repair were discussed and the patient seemed understand her options and would like to proceed The inherent risks to surgery including, but not limited to bleeding that could require reoperation or blood transfusion, weight regain if maladaptive eating and sedentary behavior resume, risk of DVT that could cause fatal PE, possible need for open surgery were discussed. The patient seems to understand her choices and would like to proceed. Will submit to her insurance; patient has an upper GI with GERD, no HH. Will send a copy of this note to her sleep medicine team at [facility] since she is reporting ongoing fatigue in spite of her CPAP and prior history of JOURDAN. I reviewed typical liver shrinking diet, preoperative bowel prep, perioperative course and the need to be out of work for 1-2 weeks, depending on her recovery. The importance of hydration, protein goals and activity were all discussed and questions answered. Two samples of celebrate were provided by Carleen Kenyon. I will see the patient back at the end of the month. My cell phone number, instructions to prevent constipation were also provided to the patient. The patient notes that she did not tolerate the celebrate protein shakes due to both flavor and GI upset. She would like to continue with premiere protein shakes and his purchased Flintstones chewable vitamins for around the time of surgery. Will submit to insurance and reach out to the [facility] sleep medicine team regarding her CPAP. Next appointment will be a 1 hour to review consents and perioperative course. Patient had some interest in discussing airplane travel. She is advised to not travel for 6 weeks postoperatively due to the risk of DVT and fatal pulmonary embolism. The importance of hydration and following postoperative diet and activity was reviewed and apparently understood. Telehealth Telehealth Location of provider rendering services: practice address Location of patient: address on file Patient Identification confirmed using: Name, : Yes Telehealth method: voice only Patient verbally consented to treatment: Yes Patient verbally consented to billing insurance company: Yes Patient informed of any privacy concerns related to visit: Yes Minutes spent on Phone/Video with Pt.: 26 Coding Level of Care Code Tele Est Pt Level 4 (71283) Diagnoses JOURDAN (obstructive sleep apnea) G47.33 HTN (hypertension) I10 Major depressive disorder, recurrent, moderate F33.1 Non-restorative sleep G47.8 Morbid obesity E66.01
== END 2023-05-20 09:05 | disposition home or self-care (01) ==
LOC: HO.HBS 08:11
PROVIDERS: PCP Nurse Practitioner Adult Health; Visit Provider Surgery
DX: E66.01 Morbid (severe) obesity due to excess calories (principal); Z68.41 Body mass index [BMI] 40.0-44.9, adult; G47.33 Obstructive sleep apnea (adult) (pediatric); I10 Essential (primary) hypertension; F33.1 Major depressive disorder, recurrent, moderate; G47.8 Other sleep disorders
CPT/HCPCS: 99214

== ENCOUNTER → 2023-05-20 08:11 | Outpatient (BNVA) | payer OTHER, SELFPAY | PROVIDERS: PCP Nurse Practitioner Adult Health; Visit Provider Surgery ==

== ENCOUNTER 2023-05-26 10:16 | Outpatient (AMB) | payer OTHER, SELFPAY ==
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
== END 2023-05-26 10:22 | disposition home or self-care (01) ==
LOC: HO.HBST 10:16
PROVIDERS: PCP Nurse Practitioner Adult Health; Visit Provider Counselor Mental Health
DX: F33.1 Major depressive disorder, recurrent, moderate (principal); E66.01 Morbid (severe) obesity due to excess calories; Z68.41 Body mass index [BMI] 40.0-44.9, adult
CPT/HCPCS: 90832

== ENCOUNTER → 2023-05-26 10:16 | Outpatient (BNVA) | payer OTHER, SELFPAY | PROVIDERS: PCP Nurse Practitioner Adult Health; Visit Provider Counselor Mental Health ==

== ENCOUNTER 2023-06-02 08:27 | Outpatient (AMB) | payer OTHER, SELFPAY ==
--- NOTE | 2023-06-02 08:31 | A.OFFVIS_ITS ---
Intake VS Expanded 06/02/23 08:41 BP 134/80 Blood Pressure Location Rt brachial Blood Pressure Position Sitting Pulse 100 Pulse Source Pulse Oximeter Temp 97.4 F Temperature Source Temporal Artery Scan Pulse Oximetry 96 Oxygen Delivery Method Room Air Height 5 ft 4 in Weight 255 lb 12.8 oz BMI 43.9 Body Fat % 47.9 Body Fat Mass 122.6 Fat Free Mass 133.2 Visceral Fat Rating 13.0 Body Water % 37.5 Body Water Mass 96.0 Muscle Mass/Score 126.6 Basal Metabolic Rate/Score 1,934 Intake Visit Reasons: OV F/U SWL Allergies benzonatate Allergy (Verified 06/02/23 08:37) Hives jackfruit Allergy (Intermediate, Uncoded 05/20/23 08:14) Swelling almonds Allergy (Mild, Uncoded 05/20/23 08:14) throat itching HPI HPI Comments History of Present Illness Details The patient is a 27-year-old woman who entered the surgical weight loss program at a weight of 279 lbs /BMI 47.9. She returns today at 255.8/BMI 43.9 representing a 25 lb weight loss. She has tried numerous fad diets, portion control and exercise routine without success and is interested in a laparoscopic sleeve gastrectomy for weight loss and improvement of her hypertension and obstr uctive sleep apnea. Patient reports undergoing a sleep study at [facility] in Nov, 2022. She uses CPAP nightly & communication with her sleep medicine physician endorsed bariatric surgery a and reported good compliance with no CPAP issues. GERD 21 ESS 17 MYRTLE 3 QOL 117 Pre op work up completed as follows: SWL classes:? 03/03 [facility] appts: cleared-03/26/23 ? ? RD appts: cleared-03/09/23 Labs: 02/20/23-low A,D H. pylori: 02/16/23-neg CXR: 02/20/23-nad EK02/20/23-normal ABD U/S: 03/06/23-normal UGI: 05/11/23 No HH, GERD noted Current meal plan includes: 2 Premier Protein shakes ([employer], [employer], [facility]), using RTD (11 oz per 30 gm shake) adding 7 oz water to first shake and drinking over 2 hours, for the second shake adding 7 oz of water but only drinking 1/2 of the product and putting the other 1/2 in the fridge for the next day. First shake, 2 scoops at 8am-10am, Second shake, 1 scoop at 12am-2pm 1 protein bar (Fulfil bars at [employer], [facility], or [employer]) at 4pm-6pm. You may substitute a Sinhala yogurt w fresh berries as an alternative for the protein bar if you'd like. Dinner at 7pm (8 forks of protein and 8 forks of salad/vegetables). She did not tolerate the celebrate protein shake samples provided. She is exercising 5 days a week burning 300 kcal per exercising session. She is doing cardio. [facility] Surgical History Hx of wisdom tooth extraction Hx of colonoscopy Family History Mother Asthma Hypothyroid Restless leg syndrome Anxiety Sleep disorder Father GERD (gastroesophageal reflux disease) Seasonal allergies Brother No problems noted. Brother Seasonal allergies Maternal Grandfather Heart attack Social History Alcohol intake: current Alcohol intake frequency: holidays/special occasions only Patient Tobacco Use Status: Never used Tobacco Review of Systems Const All systems reviewed & are unremarkable except as noted in HPI and below Reports as per HPI Physical Exam On exam, the patient is nontoxic and in good spirits Sclera anicteric She is in no respiratory distress Abdomen is obese Results Reviewed Results Reviewed: labs 02/20/23 Hb 13.2 N/N, wbc 6.3, Plts 284K Fe wnl Vit A low replaced; Vit D low replaced Alk phos 148 CRP 2.77 BUN 14, Cr 0.66 Diag imaging CXR NAD Abd U/S liver, nml stiffness UGI No HH, GERD Communication with pt's sleep medicine endorses proceediing with bariatric surgery & good compliance/results with current CPAP Assessment & Plan Assessment & Plan (1) Morbid obesity: Code(s): E66.01 - Morbid (severe) obesity due to excess calories (2) JOURDAN (obstructive sleep apnea): Code(s): G47.33 - Obstructive sleep apnea (adult) (pediatric) (3) HTN (hypertension): Code(s): I10 - Essential (primary) hypertension (4) Major depressive disorder, recurrent, moderate: Code(s): F33.1 - Major depressive disorder, recurrent, moderate Plan The pt is congratulated on her ongoing healthy life-style changes & weight loss. Options including medical management, 2nd opinion, gastric bypass and sleeve gastrectomy were discussed at length. The patient would like to proceed with laparoscopic sleeve gastrectomy, possible hiatal hernia repair, intraoperative upper endoscopy and possible ventral hernia repair. Liver shrinking diet instructions were provided to the patient and she will begin tomorrow. The importance of following these instructions and reaching out with any questions was reviewed and apparently understood. Patient noted some recent difficulty with her diet due to her recent birthday and family over indulgences. We discussed the option of postponing surgery and discussed surgery the day before Thanksgi. Patient seems to understand her options and would like to proceed with sleeve gastrectomy. I reviewed the inherent risks of this procedure which include, but are not limited to: Bleeding that could require another operation or blood transfusion; the inherent risks of transfusion reaction infectious disease from blood transfusions; the risk of staple line leaks that could cause sepsis, multi- system organ failure and ; the risk of mesenteric or deep vein thrombosis of the lower extremities that could cause a fatal pulmonary embolism was reviewed; the risk of GERD that could require conversion to gastric bypass was discussed; the risk of recurrent hiatal hernia, especially in the setting of weight regain was reviewed. The risk of weight regain if maladaptive eating and sedentary behavior continue was discussed. The importance of proper diet and increased activity to augment surgical weight loss and the fact that no operation would result in weight loss of poor dietary decisions and sedentary behavior are resumed were discussed at length and apparently understood. The importance of avoiding unintended , risk to the patient and baby and the importance of letting us know if unintended occurs was reviewed and apparently understood. Bowel prep, postop medications, and typical perioperative course including overnight and discharge, bowel prep and activity restrictions were all discussed and the patient's questions seemed to be satisfactorily answered Void urinary bladder safety companion, SCDs, Ancef 2 gm IV on-call. Orders: Orders IRON PROFILE Today E66.01 - Morbid (severe) obesity due to excess calories, F33.1 - Major depressive disorder, recurrent, moderate, G47.33 - Obstructive sleep apnea (adult) (pediatric), I10 - Essential (primary) hypertension Prothrombin Time INR Today E66.01 - Morbid (severe) obesity due to excess calories, F33.1 - Major depressive disorder, recurrent, moderate, G47.33 - Obstructive sleep apnea (adult) (pediatric), I10 - Essential (primary) hypertension Type and Screen Today E66.01 - Morbid (severe) obesity due to excess calories, F33.1 - Major depressive disorder, recurrent, moderate, G47.33 - Obstructive sleep apnea (adult) (pediatric), I10 - Essential (primary) hypertension C Reactive Protein Today E66.01 - Morbid (severe) obesity due to excess calories, F33.1 - Major depressive disorder, recurrent, moderate, G47.33 - Obstructive sleep apnea (adult) (pediatric), I10 - Essential (primary) hypertension Partial Thromboplastin Time Today E66.01 - Morbid (severe) obesity due to excess calories, F33.1 - Major depressive disorder, recurrent, moderate, G47.33 - Obstructive sleep apnea (adult) (pediatric), I10 - Essential (primary) hypertension Vitamin B12 Today E66.01 - Morbid (severe) obesity due to excess calories, F33.1 - Major depressive disorder, recurrent, moderate, G47.33 - Obstructive sleep apnea (adult) (pediatric), I10 - Essential (primary) hypertension Vitamin D 25-OH Total Today E66.01 - Morbid (severe) obesity due to excess calories, F33.1 - Major depressive disorder, recurrent, moderate, G47.33 - Obstructive sleep apnea (adult) (pediatric), I10 - Essential (primary) hypertension Zinc Today E66.01 - Morbid (severe) obesity due to excess calories, F33.1 - Major depressive disorder, recurrent, moderate, G47.33 - Obstructive sleep apnea (adult) (pediatric), I10 - Essential (primary) hypertension Comprehensive Met. Panel Today E66.01 - Morbid (severe) obesity due to excess calories, F33.1 - Major depressive disorder, recurrent, moderate, G47.33 - Obstructive sleep apnea (adult) (pediatric), I10 - Essential (primary) hypertension TSH reflex Free T4 Today E66.01 - Morbid (severe) obesity due to excess calories, F33.1 - Major depressive disorder, recurrent, moderate, G47.33 - Obstructive sleep apnea (adult) (pediatric), I10 - Essential (primary) hypertension Hemoglobin A1c Today E66.01 - Morbid (severe) obesity due to excess calories, F33.1 - Major depressive disorder, recurrent, moderate, G47.33 - Obstructive sleep apnea (adult) (pediatric), I10 - Essential (primary) hypertension Vitamin A Today E66.01 - Morbid (severe) obesity due to excess calories, F33.1 - Major depressive disorder, recurrent, moderate, G47.33 - Obstructive sleep apnea (adult) (pediatric), I10 - Essential (primary) hypertension Lipid Panel Today E66.01 - Morbid (severe) obesity due to excess calories, F33.1 - Major depressive disorder, recurrent, moderate, G47.33 - Obstructive sleep apnea (adult) (pediatric), I10 - Essential (primary) hypertension Vitamin B1 Today E66.01 - Morbid (severe) obesity due to excess calories, F33.1 - Major depressive disorder, recurrent, moderate, G47.33 - Obstructive sleep apnea (adult) (pediatric), I10 - Essential (primary) hypertension Complete Blood Count Auto Diff Today E66.01 - Morbid (severe) obesity due to excess calories, F33.1 - Major depressive disorder, recurrent, moderate, G47.33 - Obstructive sleep apnea (adult) (pediatric), I10 - Essential (primary) hypertension PTHI Today E66.01 - Morbid (severe) obesity due to excess calories, F33.1 - Major depressive disorder, recurrent, moderate, G47.33 - Obstructive sleep apnea (adult) (pediatric), I10 - Essential (primary) hypertension Ferritin Today E66.01 - Morbid (severe) obesity due to excess calories, F33.1 - Major depressive disorder, recurrent, moderate, G47.33 - Obstructive sleep apnea (adult) (pediatric), I10 - Essential (primary) hypertension Medications: New polyethylene glycol 3350 (Miralax) Take 7 packets 2 days before surgery and 7 packets 1 day before surgery. Mix each packet with 8 oz's of water before surgery. 14 packets 0RF pantoprazole 40 mg PO QAM 30 days 30 tabs 2RF sucralfate 10 mL PO BID 30 days 600 mL 2RF ondansetron HCl 4 mg PO Q6H PRN 20 tabs 0RF nausea and vomiting acetaminophen 500 mg (15 mL) PO Q6H PRN 237 mL 2RF fever or pain Coding Level of Care Code Est Pt Level 4 (69368) Diagnoses Morbid obesity E66.01 JOURDAN (obstructive sleep apnea) G47.33 HTN (hypertension) I10 Major depressive disorder, recurrent, moderate F33.1
[2023-06-02 08:41] VITALS: BP 134/80; PULSE 100; TEMP 36.3; O2SAT 96; BMI 43.9
== END 2023-06-02 09:47 | disposition home or self-care (01) ==
PROVIDERS: PCP Nurse Practitioner Adult Health; Visit Provider Surgery
DX: E66.01 Morbid (severe) obesity due to excess calories (principal); Z68.41 Body mass index [BMI] 40.0-44.9, adult; G47.33 Obstructive sleep apnea (adult) (pediatric); I10 Essential (primary) hypertension; F33.1 Major depressive disorder, recurrent, moderate
CPT/HCPCS: 99499

== ENCOUNTER → 2023-06-02 08:27 | Outpatient (BNVA) | payer OTHER, SELFPAY | PROVIDERS: PCP Nurse Practitioner Adult Health; Visit Provider Surgery | DX: E66.01 Morbid (severe) obesity due to excess calories (principal); G47.33 Obstructive sleep apnea (adult) (pediatric); I10 Essential (primary) hypertension; F33.1 Major depressive disorder, recurrent, moderate ==

== ENCOUNTER 2023-06-16 10:00 | Outpatient (AMB) | payer OTHER, SELFPAY ==
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
== END 2023-06-17 12:32 | disposition home or self-care (01) ==
LOC: HO.HBST 11:17
PROVIDERS: PCP Family Medicine; Visit Provider Counselor Mental Health
DX: F33.1 Major depressive disorder, recurrent, moderate (principal); E66.01 Morbid (severe) obesity due to excess calories
CPT/HCPCS: 90832

== ENCOUNTER → 2023-06-16 10:00 | Outpatient (BNVA) | payer OTHER, SELFPAY | PROVIDERS: PCP Family Medicine; Visit Provider Counselor Mental Health ==

== ENCOUNTER 2023-06-17 08:00 | Inpatient (IN) | payer OTHER, SELFPAY ==
[2023-06-03 08:43] LABS: MANUAL DIFF FLAG NO
[2023-06-03 08:48] LABS: INTERNATIONAL NORM RATIO 0.9 (0.9-1.1)
[2023-06-03 08:51] LABS: Partial Thromboplastin Time 32.6 SEC (26.0-36.4)
[2023-06-03 09:09] LABS: Basophils Absolute Auto 0.1 X10*3/uL (0.0-0.2); Basophils Percent Auto 0.6 % (0-2); Eosinophils Absolute Auto 0.1 X10*3/uL (0.0-0.4); Eosinophils Percent Auto 1.1 % (0-4); Hematocrit 38.5 % (37.0-47.0); Hemoglobin 13.4 g/dl (12.0-16.0); Imm Gran Abs Auto 0.02 X10*3/uL (0.00-0.03); Imm Gran Pct Auto 0.2 % (0.0-0.4); Lymphocytes Absolute Auto 1.9 X10*3/uL (1.2-4.9); Lymphocytes Percent Auto 23.7 % (20-40); Mean Corpuscular HGB Conc 34.8 g/dl (31.0-35.0); Mean Corpuscular Hemoglobin 31.5 pg (27.0-33.0); Mean Corpuscular Volume 90.6 fL (80.0-98.0); Mean Platelet Volume 10.4 fL (9.4-12.3); Monocytes Absolute Auto 0.6 X10*3/uL (0.1-1.2); Monocytes Percent Auto 6.9 % (2-11); Neutrophils Absolute Auto 5.4 x10*3/uL (2.0-8.3); Neutrophils Percent Auto 67.5 % (45-73); Platelet Count 293 X10*3/uL (160-400); Red Blood Count 4.25 X10*6/uL (4.20-5.50); Red Cell Distribution Width 12.4 % (11.0-16.0)
[2023-06-03 09:25] LABS: Estimated Average Glucose 82 mg/dL; Hemoglobin A1c % 4.5 % (<6.0)
[2023-06-03 09:43] LABS: Alanine Aminotransferase 15 U/L (0-31); Alkaline Phosphatase 126 U/L (39-117); Anion Gap 12 (12-20); Aspartate Amino Transferase 18 U/L (5-31); Bilirubin Total 0.4 mg/dL (0.0-1.0); Blood Urea Nitrogen 13 mg/dL (9-16); C Reactive Protein 1.79 mg/dL (< or = 0.50); Calcium 8.9 mg/dL (8.4-10.2); Carbon Dioxide 24 mmol/L (22-29); Chloride 108 mmol/L (96-108); Cholesterol 166 mg/dL (<200); Estimated Glomerular Filt Rate > 60; Glucose Random 89 mg/dL (60-115); HDL Cholesterol 39 mg/dL (>40); Iron 46 mcg/dL (30-160); LDL Cholesterol Calculated 115 mg/dL (<100); Percent Iron Saturation 19 % (15-50); Potassium 4.1 mmol/L (3.3-5.1); Sodium 140 mmol/L (135-145); Total Iron Binding Capacity 236 mcg/dL (228-428); Total Protein 6.7 g/dL (6.5-8.0); Triglycerides 61 mg/dL (<150); Unsaturated Iron Binding 190 ug/dL
[2023-06-03 09:52] LABS: Ferritin 72 ng/mL (10-122); Vitamin D 25-OH Total 30.3 ng/mL (>30)
[2023-06-03 09:56] LABS: Vitamin B12 385 pg/mL (200-900)
[2023-06-05 16:34] LABS: PTHI 29 pg/mL (16-77)
[2023-06-06 07:28] LABS: Zinc 74 mcg/dL (60-130)
[2023-06-08 11:20] LABS: Vitamin A 38 mcg/dL (38-98)
[2023-06-09 10:13] VITALS: BMI 42.9
[2023-06-10 12:53] LABS: Vitamin B1 10 nmol/L (8-30)
--- NOTE | 2023-06-15 13:27 | P.CONAN_ITS ---
Documented by User: Fely Jackson NP 06/15/23 13:28 HPI - Anesthesia Eval Consult details Narrative: 28yo F for Gastrectomy Sleeve-EGD, Possible diaphragmatic hernia, possible ventral hernia, possible open PMFSH Active Problems All Active Problems Non-restorative sleep (Acute) Major depressive disorder, recurrent, moderate (Acute) HTN (hypertension) (Acute) JOURDAN (obstructive sleep apnea) (Acute) Morbid obesity (Acute) Past Medical History Medical History GERD (gastroesophageal reflux disease) Asthma Sleep apnea HTN (hypertension) Family History Family History Mother Asthma Hypothyroid Restless leg syndrome Anxiety Sleep disorder Father GERD (gastroesophageal reflux disease) Seasonal allergies Brother No problems noted. Brother Seasonal allergies Maternal Grandfather Heart attack Surgical History Surgical History Hx of wisdom tooth extraction Hx of colonoscopy Social History Are you a primary critical care clinical nurse specialist to a significant other at home: No Do you presently have visiting nurse or other home services: No Alcohol intake: current Alcohol intake frequency: does not drink Patient Tobacco Use Status: Never used Tobacco Use of substances other than those prescribed or required for medical reasons: No Are you DNR?: No Advance Directives: No Advance Directives Information Provided: Yes Advance Directives on File: No Recently lost weight without trying: No Eating poorly because of decreased appetite: No Nutrition Risks: No Nutritional Risk Patient : No : No Poor oral hygiene: No Meds Allergies Allergy/AdvReac Type Severity Reaction Status Date / Time benzonatate Allergy Intermediate Hives Verified 06/17/23 08:41 almond Allergy Mild throat Verified 06/17/23 08:41 itching jackfruit Allergy Intermediate Swelling Uncoded 06/17/23 08:41 Home Medications Medication Instructions Recorded Confirmed Last Taken Type citalopram 40 mg tablet 40 mg PO DAILY 01/15/23 06/17/23 06/16/23 09:00 History epinephrine 0.3 mg/0.3 mL 0.3 mg IM Q4H PRN Anaphylaxis 01/15/23 06/17/23 Unknown History injection, auto-injector fluticasone propionate 110 1 puff inhalation BID 01/15/23 06/17/23 01/07/23 History mcg/actuation HFA aerosol inhaler (Flovent HFA) lisinopril 20 mg tablet 20 mg PO DAILY 03/17/23 06/17/23 06/16/23 09:00 History calcium carbonate 200 mg calcium 200 mg PO DAILY PRN Acid Reflux 06/09/23 06/17/23 06/09/23 History (500 mg) chewable tablet (Tums) multivitamin 1 tab PO BID 06/09/23 06/17/23 06/16/23 09:00 History Exam Height,Weight and Vital Signs: Height 5 ft 4 in Weight 113.398 kg Pertinent Lab Results Pertinent Lab Results: Laboratory Tests 06/03/23 06/03/23 08:03 08:13 WBC 8.0 RBC 4.25 Hgb 13.4 Hct 38.5 MCV 90.6 MCH 31.5 MCHC 34.8 RDW 12.4 Plt Count 293 MPV 10.4 Immature Gran % (Auto) 0.2 Neut % (Auto) 67.5 Lymph % (Auto) 23.7 Hyde % (Auto) 6.9 Eos % (Auto) 1.1 Baso % (Auto) 0.6 Lymph # (Auto) 1.9 Hyde # (Auto) 0.6 Eos # (Auto) 0.1 Baso # (Auto) 0.1 Abs Immat Gran (auto) 0.02 Absolute Neuts (auto) 5.4 Absolute Nucleated RBC 0.000 Nucleated RBC % (auto) 0.0 PT 11.0 L INR 0.9 APTT 32.6 Sodium 140 Potassium 4.1 Chloride 108 Carbon Dioxide 24 Anion Gap 12 BUN 13 Creatinine 0.64 Estim Creat Clear Calc TNP Estimated GFR > 60 Random Glucose 89 Estimat Average Glucose 82 Hemoglobin A1c % 4.5 Calcium 8.9 D Iron 46 TIBC 236 % Saturation 19 Unsat Iron Binding 190 Ferritin 72 Total Bilirubin 0.4 AST 18 ALT 15 Alkaline Phosphatase 126 H C-Reactive Protein 1.79 H Total Protein 6.7 Albumin 4.0 Triglycerides 61 Cholesterol 166 LDL Cholesterol, Calc 115 H HDL Cholesterol 39 L Vitamin A 38 Vitamin B1 10 Vitamin B12 385 25-OH Vitamin D Total 30.3 L TSH 1.90 PTH Intact 29 Calcium (PTH Intact) 9.0 Zinc 74 Blood Type O Negative Antibody Screen NEGATIVE Narrative Narrative: EKG 01/2023 Vent. Rate : 083 BPM Atrial Rate : 083 BPM P-R Int : 150 ms QRS Dur : 074 ms QT Int : 362 ms P-R-T Axes : 052 068 045 degrees QTc Int : 425 ms Normal sinus rhythm Normal ECG No previous ECGs available Assessment and Plan Assessment Anesthesia Assessment: Chart Reviewed Documented by User: Nadeen Ramires MD 06/17/23 09:38 [facility] Active Problems All Active Problems Non-restorative sleep (Acute) Major depressive disorder, recurrent, moderate (Acute) HTN (hypertension) (Acute) JOURDAN (obstructive sleep apnea) (Acute) Morbid obesity (Acute) Past Medical History Medical History GERD (gastroesophageal reflux disease) Asthma Sleep apnea HTN (hypertension) Family History Family History Mother Asthma Hypothyroid Restless leg syndrome Anxiety Sleep disorder Father GERD (gastroesophageal reflux disease) Seasonal allergies Brother No problems noted. Brother Seasonal allergies Maternal Grandfather Heart attack Family history of problems with anesthesia: No Surgical History Surgical History Hx of wisdom tooth extraction Hx of colonoscopy History of Problems with Anesthesia: No Social History Are you a primary critical care clinical nurse specialist to a significant other at home: No Do you presently have visiting nurse or other home services: No Alcohol intake: current Alcohol intake frequency: does not drink Patient Tobacco Use Status: Never used Tobacco Use of substances other than those prescribed or required for medical reasons: No Are you DNR?: No Advance Directives: No Advance Directives Information Provided: Yes Advance Directives on File: No Recently lost weight without trying: No Eating poorly because of decreased appetite: No Nutrition Risks: No Nutritional Risk Patient : No : No Poor oral hygiene: No Meds Allergies Allergy/AdvReac Type Severity Reaction Status Date / Time benzonatate Allergy Intermediate Hives Verified 06/17/23 08:41 almond Allergy Mild throat Verified 06/17/23 08:41 itching jackfruit Allergy Intermediate Swelling Uncoded 06/17/23 08:41 Home Medications Medication Instructions Recorded Confirmed Last Taken Type citalopram 40 mg tablet 40 mg PO DAILY 01/15/23 06/17/23 06/16/23 09:00 History epinephrine 0.3 mg/0.3 mL 0.3 mg IM Q4H PRN Anaphylaxis 01/15/23 06/17/23 Unknown History injection, auto-injector fluticasone propionate 110 1 puff inhalation BID 01/15/23 06/17/23 01/07/23 History mcg/actuation HFA aerosol inhaler (Flovent HFA) lisinopril 20 mg tablet 20 mg PO DAILY 03/17/23 06/17/23 06/16/23 09:00 History calcium carbonate 200 mg calcium 200 mg PO DAILY PRN Acid Reflux 06/09/23 06/17/23 06/09/23 History (500 mg) chewable tablet (Tums) multivitamin 1 tab PO BID 06/09/23 06/17/23 06/16/23 09:00 History Exam Airway Mallampati Class: II TM Dist: >3cm Neck ROM: Full Heart: rrr Lungs: cta Assessment and Plan Assessment Anesthesia Assessment: Anesthesia Plan Discussed Final Anesthetic Review Family History of Problems with Anesthesia: No History of Problems with Anesthesia: No NPO: Yes ASA Class: III Final Preanesthetic Review: No Changes in Pt Med Stat, Meds/Allgs Chart Reviewed, Consent Obtained/Reviewed and Anes Risks/Benef Reviewed Patient Risk: Intermediate Procedure Risk: Intermediate Anesthetic Plan Anesthetic Plan: GA Disposition: Standard PACU
[2023-06-17] VITALS (15 sets, daily range): BP systolic 101–133; BP diastolic 44–84; PULSE 77–105; RESP 12–21; TEMP 36.1–36.9; O2SAT 95–99; BMI 42.0
--- NOTE | 2023-06-17 06:36 | P.OP_ITS ---
Operative Note Operative Note Date of Service: 06/17/23 Narrative: Preop diagnosis: [Morbid obesity, obstructive sleep apnea, hypertension] Postop diagnosis: [Same] Procedure: [Laparoscopic sleeve gastrectomy, gastropexy, intraoperative upper endoscopy] Surgeon: Tiago Medina MD, [facility], [facility] Assist: [Sada Sánchez PA-C] Anesthesia: [GET, Local: Marcaine, 0.5% plain] Estimated blood loss: [3cc] Specimen: [Portion of stomach with fundus] Intraoperative findings: [Grossly normal stomach and liver, no evidence of a hiatal hernia, intraoperative endoscopy showed uniform caliber to sleeve and no evidence of bleeding] Indications: [The patient is a 28-year-old woman with a history of obesity in the related comorbidities of hypertension and obstructive sleep apnea who entered the surgical weight loss program at a weight of 279 lbs /BMI 47.9. Her obesity has been refractory to medical management including fat diet. After being provided with education regarding the importance of a healthy diet and increased activity to augment surgical weight loss, options were discussed with the patient including continued medical management, 2nd opinion, and bariatric surgery including the options of laparoscopic sleeve gastrectomy versus laparoscopic gastric bypass. The patient wanted to proceed with a laparoscopic sleeve gastrectomy, possible hiatal hernia repair, intraoperative upper endoscopy, possible ventral hernia repair. I reviewed the inherent risks of this procedure which include, but are not limited to: Bleeding that could require another operation or blood transfusion; the inherent risks of transfusion reaction infectious disease from blood transfusions; the risk of staple line leaks that could cause sepsis, multi-system organ failure and ; the risk of mesenteric or deep vein thrombosis of the lower extremities that could cause a fatal pulmonary embolism was reviewed; the risk of GERD that could require conversion to gastric bypass was discussed; the risk of recurrent hiatal hernia, especially in the setting of weight regain was reviewed. The risk of weight regain if maladaptive eating and sedentary behavior continue was discussed. The importance of proper diet and increased activity to augment surgical weight loss and the fact that no operation would result in weight loss of poor dietary decisions and sedentary behavior are resumed were discussed at length and apparently understood. The patient had the option of having a spa experience coordinator present and declined this option.] Procedure: [ The patient was identified in the preoperative holding area by myself and again in the operating suite 6 by myself and the OR team. Patient was placed supine on the operating table. Safety straps were utilized and a footboard utilized. The patient was induced in general endotracheal anesthesia administered with excellent effect. An appropriate time-out was performed. The patient's abdomen was then widely prepped and draped in the usual manner for surgery using chlorprep. Antibiotics per protocol were administered by Anesthesia. After infiltrating preemptive local in the skin and subcutaneous tissues in the left upper quadrant, a stab incision was made sharply in the left subcostal abdomen and the Veress needle inserted without incident. An appropriate drop test was performed then a pneumoperitoneum of 15 mmHg was obtained using carbon dioxide. Opening pressures were 6 mmHg. Next, a 5 mm 0 degree scope over a 5 mm Optiview trocar was used to access the abdomen via the epigastric incision in the midline. Once the abdomen was entered, the the trocar obturator was removed and the laparoscope was used to confirm there was no injury from the Veress needle nor trocar insertion injury to the bowel or mesentery, then the scope was switched to a 5 mm 45 degree laparoscope. Next, using preemptive local, additional 5 mm trocars were placed under direct laparoscopic vision on the patient's left abdomen, then right and the 5 mm midline trocar upsized to a 12 mm to accommodate the stapler. The patient was then positioned in reverse Trendelenburg and the liver retractor deployed through the right lateral 5 mm trocar and secured. A 40 [place] ViSiGi bougie was inserted by Anesthesia per os and advanced to the stomach to decompress. It was then withdrawn to the GE junction all under direct laparoscopic vision. Dissection was begun along the greater curvature using the 5 mm [place] LigaSure for hemostasis and continued to the left jose of the diaphragm. Dissection was then carried towards the pylorus to 3-4 cm from the pylorus and retro gastric adhesions lysed. The gastroesophageal fat pad was carefully mobil ized taking care to avoid injury to the esophagus and stomach and dissection carried towards the short gastrics taking care to avoid injury to the spleen and splenic artery. The diaphragmatic hiatus was carefully examined for a hernia, and no apparent hernia was appreciated. Next, the 40 Fr ViSiGi bougie was advanced by anesthesia under direct vision and laparoscopic guidance and positioned in the antrum approximately 3 cm from the pylorus using laparoscopic graspers to serve as a guide for a stapled sleeve gastrectomy. Stapling was performed with [place] Row power stapler Endo-MAGED stapler with a purple 45 and 60 loads as needed to keep the sleeve morphology uniform. The bougie served as a guide to maintain the same sleeve caliber to avoid stricture & sleeve distortion. The 10 mm clip hotel security officer was used to apply additional clips to the staple line. Care was taken to be sure that the sleeve laid flat and was without stricture. Once the sleeve was complete, the portion of stomach was placed in the lower abdomen to be sent for removal and permanent section. The staple line, gastrocolic omentum, spleen and short gastric areas were all inspected for hemostasis which was found to be good. The ViSiGi bougie used for a leak test by reducing the reverse Trendelenburg and instilling sterile saline. Next, the bougie was withdrawn under laparoscopic vision used to suction the esophagus and hypopharynx and then discarded. After inspecting again for hemostasis, a gastropexy was performed using 2-0 Polysorb suture to secure the sleeve gastrectomy to the gastrocolic omentum with intracorporeal suturing technique. Next, I broke scrub perform an on-table upper endoscopy to assess the sleeve and the esophagus and stomach. The patient was returned to neutral position and the Olympus 160 gastroscope was advanced per os taking care to preserve the endotracheal tube. The esophagus was intubated without incident. Minimal air was insufflated and the scope advanced into the newly formed sleeve. The staple line was inspected for hemostasis and the morphology of the sleeve appeared straight with a uniform diameter. Intraoperatively, there was no evidence of staple line leak seen during laparoscopy as air was insufflated via endoscope. The scope was then used to aspirate the air from the sleeve withdrawn and removed. I then rescrubbed to return to the operative field and again inspected the field for hemostasis. After final assessment for hemostasis, the patient was returned to neutral position, a Yuli used to withdraw the resected gastric specimen which was sent for permanent section. The fascia of the 12 mm midline was closed using an 0 Polysorb figure of 8 on a suture passer under direct laparoscopic vision. The abdomen was then deflated and all trocars removed. The suture was then tied and the skin closed with 4-0 Monocryl subcuticular sutures. The abdomen was then washed and dried, benzoin and Steri-Strips applied followed by Tegaderms. The patient tolerated the procedure well was then extubated the recover in stable condition. All sponge needle and instrument counts were correct x2. The patient requested that I call her partner,Bakari at [phone] with a postoperative update regarding hydration, pain management and tentative discharge tomorrow. The possibility of changing plans due to lab anomalies, pain or other unforeseen concerns was discussed and addressed. His questions seemed to be satisfactorily answered.]
--- NOTE | 2023-06-17 06:36 | MHC.SHP ---
Pre-Procedural Eval Section A Date of Service: 06/17/23 The patient is an INPATIENT: Yes The History & Physical has been completed within 30 days and I have reviewed it.: Yes Section B Chief Complaint: Morbid (severe) obesity due to excess calories Allergies: Allergies Allergy/AdvReac Type Severity Reaction Status Date / Time benzonatate Allergy Intermediate Hives Verified 06/08/23 08:29 almond Allergy Mild throat Verified 06/08/23 08:29 itching jackfruit Allergy Intermediate Swelling Uncoded 05/20/23 08:14 Plan I have reviewed the history and physical and performed a pertinent physical examination on my patient. No changes have occurred unless specified. Time Spent With Patient Time: Total time managing care of this patient today ____ minutes.
[2023-06-17 08:43] LABS: UPreg QC Valid YES; Urine Pregnancy NEGATIVE (NEGATIVE)
[2023-06-17] MEDS: Aprepitant 32 MG/4.4 ML VIAL IVPUSH (09:04)
[2023-06-17] MEDS: Lactated Ringers 1,000 ML 150 ML IVCONT (09:04)
--- NOTE | 2023-06-17 09:09 | PHA.MEDREC ---
Pharmacy Consult ? Medication Reconciliation Pharmacy has completed the medication reconciliation. Reviewed med rec done by nursing
--- NOTE | 2023-06-17 10:24 | P.DS_ITS ---
DS: Providers Provider Date of Service: 06/18/23 Date of admission: 06/17/23 08:00 Primary care physician: Steve Granados DO DS: Summary Hospital Course Hospital Course: ADMITTING DIAGNOSIS: morbid obesity, HTN, anxiety DISCHARGE DIAGNOSIS: same, s/p laparoscopic sleeve gastrectomy PAST SURGICAL HISTORY: none PROCEDURE: upper endoscopy, laparoscopic sleeve gastrectomy DISCHARGE SUMMARY: History of Present Illness: The patient is a 28 year-old woman with a BMI of 47.9 kg/m2 and associated co- morbidities as described above. The patient had extensive work-up, lost 25 lbs preoperatively and was electively scheduled for laparoscopic, possible open sleeve gastrectomy and gastropexy. Risks and complications of the surgery were discussed with the patient in advance, particularly the possibility of , pulmonary embolism, anastomotic leak, bleeding, bowel injury, GERD, cardiac, renal or pulmonary complications. The patient understood all the risks and was in agreement with the surgical plan. Hospital Course: The patient underwent an uneventful laparoscopic sleeve gastrectomy with gastropexy on the day of admission. Postoperatively, the patient was transferred to the surgical floor. The patient received IV Acetaminophen and IV dilaudid for pain control. Patient was started on bariatric phase 1 diet POD #0. On postoperative day one, the patient was feeling well without nausea, vomiting, fevers, or tachycardia. The patient had some mild incisional pain and the abdomen was soft. On the morning of postoperative day one, the patient was continued on 1 ounce of water or ice every half hour. During the day, the patient did fairly well, having some incisional pain, but able to ambulate adequately and to tolerate liquids well. Since the patient is doing well, we decided that the patient was ready to be discharged. The patient was given instructions to follow-up with me next week and to call my office for any fever over 101, persistent abdominal pain, nausea, vomiting, GERD, symptoms of DVT such as calf tenderness, or leg swelling, or pulmonary embolism such as chest pain or shortness of breath. The patient was also instructed to drink 40-60 ounces of liquids per day using the 1-ounce cups. The patient had been given prescriptions for Tylenol for pain, Zofran prn for nausea, and pantoprazole and carafate previously. The patient was encouraged to ambulate and use the incentive spirometer. The patient was allowed to shower, but no baths, and encouraged to stay active at home. All of these instructions were given to the patient personally. All questions were answered and the patient understood all instructions, the instructions were also given to the patient in print. Time Attestation Discharge coordination time: Less than 30 minutes Quality: Safe Use of Opioids Does Pt have an Active Cancer Diagnosis on the Problem List?: No Quality: Stroke Does the patient have a stroke diagnosis?: No Physical Exam Vital Signs: Vital Signs: Last Vital Signs Temp 98.5 F 06/17/23 08:35 Pulse 99 06/17/23 08:35 Resp 20 06/17/23 08:35 BP 124/71 06/17/23 08:35 Pulse Ox 96 06/17/23 08:35 O2 Del Method Room Air 06/17/23 08:35 BMI result Body Mass Index 42.0 DS: Data Data Completed and Pending Labs on day of discharge: Laboratory Results - last 24 hr 06/17/23 08:15 Urine Test NEGATIVE Discharge Plan Discharge Anticipated Discharge Date/Time: 06/18/23 10:22 Patient Disposition: Home, Self-Care Discharge Diagnosis: s/p sleeve gastrectomy Referrals: Steve Granados DO [Primary Care Provider] - 1 Week Discharge Medications: Continued epinephrine 0.3 mg/0.3 mL auto-injector 0.3 mg IM Q4H PRN (Reason: Anaphylaxis) citalopram 40 mg tablet 40 mg PO DAILY fluticasone propionate [Flovent HFA] 110 mcg/actuation HFA aerosol inhaler 1 puff inhalation BID ondansetron HCl 4 mg tablet 4 mg PO Q6H PRN (Reason: nausea and vomiting) Qty: 20 0RF pantoprazole 40 mg tablet,delayed release (DR/EC) 40 mg PO QAM 30 Days Qty: 30 2RF sucralfate 100 mg/mL suspension 10 ml PO BID 30 Days Qty: 600 2RF acetaminophen 500 mg/15 mL liquid 500 mg PO Q6H PRN (Reason: fever or pain) Qty: 237 2RF lisinopril 20 mg tablet 20 mg PO DAILY Discontinued multivitamin Tablet 1 tab PO BID Patient Comments: patient states she takes a flinstone tablet calcium carbonate [Tums] 200 mg calcium (500 mg) Tablet,Chewable 200 mg PO DAILY PRN (Reason: Acid Reflux) Discharge Orders: Discharge Order (Routine); Ordered 06/18/23 Ordered By: Sada Sánchez Activity on Discharge: No heavy lifting Stand Alone Forms: Patient Portal Discharge page Care Plan Goals: weight loss Health Concerns: morbid obesity Plan of Treatment: 1. Please call your doctor or come back to the emergency room should any new symptoms arise. 2. Activity: You may shower. No tub baths, sex or returning to work until discussed at first post op appointment. No exercise, alcohol, tobacco or illegal drug use. 3. Diet: continue as discussed with bariatric team.. 4. Dressing Change/Wound Care: Do not change or remove surgical dressings unless they are wet or soiled. 5. Call your doctor if: - Your temperature exceeds 101.5 F - You experience excessive pain or swelling - You have an unexpected reaction to medication - You have excessive bleeding - You experience continued vomiting/nausea - Your incision begins to separate - Your incision shows signs of infection such as increased redness, swelling, excessive pain, heat, or drainage (light blood or clear fluid is normal) 6. Continue to use incentive spirometer hourly while awake. Walk in home for 5- 10 minutes every 2 hours during the first week. The patient's medical history has been reviewed and they are considered low risk for post op DVT and therefore DVT prophylaxis is not considered necessary. Travel after surgery was reviewed. The patient has not disclosed any travel plans during the first 30 days after surgery and they have been advised that within the first 30 days after surgery any bus, plane, train or car travel over 2 hours in duration is contraindicated due to the possibility of developing blood clots from immobility. Any travel, needs to include periods of ambulation of 10 minutes in duration every 2 hours. The patient was instructed to discuss any plans for travel during this period with their bariatric surgeon. 7. General instructions: No lifting greater than 5 lbs for 1 week and not more than 20lbs the next 3?weeks. No driving until seen at the office in 5-7 days after surgery. Please walk around your home every hour or two to prevent blood clots from forming in your legs. Please follow the post op diet instructions you are?given by the bariatric team.?If you have any issues or concerns or questions please call the office/answering service to speak with the bariatric provider precision honing machine operator.? The Celebrate shanorah have all of the bariatric vitamins that you need. If you are drinking other protein shakes, you will need to purchase the Celebrate multivitamins and calcium that are available in the hospital gift shop.??Do not take any new medications without first discussing this with the bariatric team. Please make sure you are consuming at least 40 ounces of fluids per day starting the?day AFTER your discharge from the hospital. Each one ounce cup represents 6 sips. If you drink faster you may experience?bloating,?gas pain, burping, nausea or heartburn. Do not hesitate to contact the office with any questions at . Assessment: stable, post op sleeve gastrectomy
[2023-06-17] MEDS: HYDROmorphone HCl 0.5 MG/0.5 ML SYRINGE 0.25 MG IVPUSH ×2 (13:23→13:28)
[2023-06-17 13:48] LABS: Hematocrit 35.9 % (37.0-47.0); Hemoglobin 12.5 g/dl (12.0-16.0)
[2023-06-17 14:00] LABS: Anion Gap 15 (12-20); Blood Urea Nitrogen 8 mg/dL (9-16); Calcium 8.5 mg/dL (8.4-10.2); Carbon Dioxide 19 mmol/L (22-29); Chloride 105 mmol/L (96-108); Creatinine Clr Calc Pharmacy 149.3; Estimated Glomerular Filt Rate > 60; Glucose Random 120 mg/dL (60-115); Potassium 3.3 mmol/L (3.3-5.1); Sodium 136 mmol/L (135-145)
[2023-06-17] MEDS: Famotidine/PF 20 MG/2 ML VIAL IVPUSH ×2 (15:07→20:41)
[2023-06-17] MEDS: ceFAZolin Sodium/Dextrose,Iso 2 GM/50 ML PIGGYBACK IV (15:07)
[2023-06-17] MEDS: Acetaminophen 1,000 MG/100 ML PIGGYBACK 16.7 MG IV ×2 (15:17→20:41)
[2023-06-17] MEDS: Lactated Ringers 1,000 ML 100 ML IVCONT (15:17)
[2023-06-17] MEDS: Metoclopramide HCl 10 MG/2 ML VIAL IVPUSH (16:29)
[2023-06-17] MEDS: Potassium Chloride/H20 10 MEQ/100 ML PIGGYBACK 100 MEQ IV (17:04)
[2023-06-17] MEDS: 0.9 % Sodium Chloride Flush 3 ML SYRINGE IVFLUSH (18:59)
[2023-06-17] MEDS: ondansetron HCL 4 MG/2 ML VIAL IVPUSH (18:59)
[2023-06-18] MEDS: Lactated Ringers 1,000 ML 100 ML IVCONT (01:08)
[2023-06-18] MEDS: Acetaminophen 1,000 MG/100 ML PIGGYBACK 16.7 MG IV (02:29)
[2023-06-18 03:57] VITALS: BP 111/69; PULSE 70; RESP 18; TEMP 36.6; O2SAT 94
[2023-06-18 06:20] LABS: MANUAL DIFF FLAG NO
[2023-06-18 06:26] LABS: Basophils Percent Auto 0.2 % (0-2); Hematocrit 35.6 % (37.0-47.0); Hemoglobin 12.2 g/dl (12.0-16.0); Imm Gran Abs Auto 0.04 X10*3/uL (0.00-0.03); Imm Gran Pct Auto 0.5 % (0.0-0.4); Lymphocytes Absolute Auto 1.3 X10*3/uL (1.2-4.9); Lymphocytes Percent Auto 15.2 % (20-40); Mean Corpuscular HGB Conc 34.3 g/dl (31.0-35.0); Mean Corpuscular Hemoglobin 30.4 pg (27.0-33.0); Mean Corpuscular Volume 88.8 fL (80.0-98.0); Mean Platelet Volume 11.1 fL (9.4-12.3); Monocytes Absolute Auto 0.6 X10*3/uL (0.1-1.2); Monocytes Percent Auto 6.8 % (2-11); Neutrophils Absolute Auto 6.8 x10*3/uL (2.0-8.3); Neutrophils Percent Auto 77.3 % (45-73); Platelet Count 263 X10*3/uL (160-400); Red Blood Count 4.01 X10*6/uL (4.20-5.50); Red Cell Distribution Width 12.4 % (11.0-16.0); White Blood Count 8.7 X10*3/uL (4.8-10.8)
[2023-06-18 06:47] LABS: Anion Gap 15 (12-20); Blood Urea Nitrogen 4 mg/dL (9-16); Calcium 8.9 mg/dL (8.4-10.2); Carbon Dioxide 20 mmol/L (22-29); Chloride 107 mmol/L (96-108); Creatinine Clr Calc Pharmacy 153.8; Estimated Glomerular Filt Rate > 60; Glucose Random 96 mg/dL (60-115); Potassium 4.4 mmol/L (3.3-5.1); Sodium 138 mmol/L (135-145)
[2023-06-18 08:00] VITALS: BP 103/56; PULSE 74; RESP 16; TEMP 36.9; O2SAT 97
--- NOTE | 2023-06-18 09:09 | P.PNGS_ITS ---
Subjective Subjective Date of Service: 06/18/23 Interval history: POD #1 s/p LSG with Dr Medina. Pt with minimal abd pain, ambulating and voiding easily, tolerating phase 1 diet. Pt feels ready to go home this am. She states she discussed with Dr Medina that she will be suing Premier protein powder and MVI daily because she did not like the taste of Celebrate 4:1 powder. I re viewed all medications and meal plan for the first week post op. Using ICS well. Physical Exam 2 Vital Signs: Vital Signs: Last Vital Signs Temp 98.4 F 06/18/23 08:00 Pulse 74 06/18/23 08:00 Resp 16 06/18/23 08:00 BP 103/56 L 06/18/23 08:00 Pulse Ox 97 06/18/23 08:00 O2 Del Method Room Air 06/18/23 08:00 O2 Flow Rate 2 06/17/23 14:08 BMI result Body Mass Index 42.0 Const: General: cooperative, healthy appearing and no acute distress GI: Inspection: Yes incision (surgical dressings c/d/i) and Yes obesity P alpation (GI): Soft to palpation, nontender and no guarding Extrem: General: Yes no pedal edema and Yes no calf tenderness Objective Data Active Medications Albuterol Sulfate (Albuterol Sulfate (0.083%) 2.5 Mg/3 Ml Vial.Neb) 2.5 mg INHALE ONCE PRN PRN Reason: Shortness of Breath/Wheezing Escitalopram Oxalate (Escitalopram Oxalate 20 Mg Tablet) 20 mg PO DAILY [facility] Famotidine (Famotidine/Pf 20 Mg/2 Ml Vial) 20 mg IVPUSH BID [facility] Last Admin: 06/17/23 20:41 Dose: 20 mg Documented By: MAYURI Fentanyl (Fentanyl Citrate/Pf 100 Mcg/2 Ml Vial) 25 mcg IVPUSH Q5M PRN; Protocol PRN Reason: Pain, Moderate(Pain Scale 4-6) Fluticasone Propionate (Fluticasone Propionate 100 Mcg Blst.W.Dev) 1 puff INHALE RBID [facility] Last Admin: 06/17/23 19:22 Dose: Not Given Documented By: ANDREW Non-Admin Reason: Med Not Available Hydromorphone HCl (Hydromorphone Hcl 0.5 Mg/0.5 Ml Syringe) 0.25 mg IVPUSH Q5M PRN; Protocol PRN Reason: Pain, Severe (Pain Scale 7-10) Last Admin: 06/17/23 13:28 Dose: 0.25 mg Documented By: SHALINI Hydromorphone HCl (Hydromorphone Hcl 0.5 Mg/0.5 Ml Syringe) 0.25 mg IVPUSH Q4H PRN; Protocol PRN Reason: Pain, Moderate(Pain Scale 4-6) Promethazine HCl 6.25 mg/ (Sodium Chloride) 50.25 mls @ 201 mls/hr IV Q4H PRN PRN Reason: Nausea and Vomiting Last Infusion: 06/17/23 14:53 Dose: Infused Documented By: AZRA Lactated Ringer's (Lr) 1,000 mls @ 100 mls/hr IVCONT .Q10H [facility] Last Admin: 06/18/23 01:08 Dose: 100 mls/hr Documented By: MAYURI Acetaminophen (irmev) 1,000 mg in 100 mls @ 16.7 mls/hr IV .Q6H [facility] Last Admin: 06/18/23 02:29 Dose: 16.7 mls/hr Documented By: MAYURI Lisinopril (Lisinopril 20 Mg Tablet) 20 mg PO DAILY [facility]; Protocol Metoclopramide HCl (Metoclopramide Hcl 10 Mg/2 Ml Vial) 10 mg IVPUSH Q6H PRN PRN Reason: Nausea Last Admin: 06/17/23 16:29 Dose: 10 mg Documented By: AZRA Ondansetron HCl (Ondansetron Hcl 4 Mg/2 Ml Vial) 4 mg IVPUSH ONCE PRN PRN Reason: Nausea and Vomiting Ondansetron HCl (Ondansetron Hcl 4 Mg/2 Ml Vial) 4 mg IVPUSH ONCE PRN PRN Reason: Nausea and Vomiting Ondansetron HCl (Ondansetron Hcl 4 Mg/2 Ml Vial) 4 mg IVPUSH Q8H PRN PRN Reason: Nausea Last Admin: 06/17/23 18:59 Dose: 4 mg Documented By: MAYURI Sodium Chloride (0.9 % Sodium Chloride Flush 3 Ml Syringe) 3 ml IVFLUSH QSHIFT [facility] Last Admin: 06/18/23 07:03 Dose: Not Given Documented By: VIKASH Non-Admin Reason: IV Running Labs 06/18/23 05:54 06/18/23 05:54 Labs: Laboratory Results - last 24 hr 06/17/23 06/18/23 13:42 05:54 MCV 88.8 MCH 30.4 MCHC 34.3 RDW 12.4 Plt Count 263 MPV 11.1 Immature Gran % (Auto) 0.5 H Neut % (Auto) 77.3 H Lymph % (Auto) 15.2 L [place] % (Auto) 6.8 Eos % (Auto) 0.0 Baso % (Auto) 0.2 Lymph # (Auto) 1.3 [place] # (Auto) 0.6 Eos # (Auto) 0.0 Baso # (Auto) 0.0 Abs Immat Gran (auto) 0.04 H Absolute Neuts (auto) 6.8 Absolute Nucleated RBC 0.000 Nucleated RBC % (auto) 0.0 Anion Gap 15 15 Estim Creat Clear Calc 149.3 153.8 Estimated GFR > 60 > 60 Random Glucose 120 H 96 Calcium 8.5 8.9 Procedures Date of Service Date of Service: 06/18/23 Progress Note: A&P Assessment and plan (1) S/P laparoscopic sleeve gastrectomy: Status: Acute Assessment and Plan: POD # 1 s/p LSG, stable and ready for discharge. She will remain on phase 1 diet today and start phase 2 tomorrow. Case discussed with Dr Medina this am. (2) HTN (hypertension): Status: Acute Assessment and Plan: Take BP every morning, if SBP is< 140 do not take lisinopril. She will report BP reading to me daily over the next week. (3) JOURDAN (obstructive sleep apnea): Status: Acute Assessment and Plan: Continue using CPAP nightly. (4) Morbid obesity: Status: Acute Time Spent With Patient Time: Total time managing care of this patient today ____ minutes. Quality Stroke Does the patient have a stroke diagnosis?: No VTE Prior VTE?: No VTE Risk Level:: Surgical - low VTE Device Contraindication: N/A - Device Ordered VTE Drug Contraindication: Treatment Not Indicated
--- NOTE | 2023-06-18 09:48 | MHC.CM.PN ---
PT REPORTS SHE LIVES AT HOME WITH HER S/O AND IS INDEPENDENT WITH CARE SHE USES A CPAP FOR DME SHE HAS NO SERVICES AND WORKS FT SHE SAYS SHE PROVIDED A COPY OF HER HCP AT THE DESK PCP: VIBHA STRICKLAND (SHE HAS NOT YET SEEN HIM) DCP: HOME WITH NO SERVICES VIA PRIVATE TRANSPORT
== END 2023-06-18 09:50 | disposition home or self-care (01) | DRG 403 ==
LOC: HO.SSSA 08:20 → HO.S3 13:10
PROVIDERS: Nurse Practitioner; Physician Assistant; Admitting Provider Surgery; PCP Family Medicine; Visit Provider Surgery
PROC: 0DB64Z3 Excision of Stomach, Percutaneous Endoscopic Approach, Vertical (ICD-10-PCS; CPT 43845; principal; 2023-06-17 10:10)
DX: E66.01 Morbid (severe) obesity due to excess calories (principal); G47.33 Obstructive sleep apnea (adult) (pediatric); K21.9 Gastro-esophageal reflux disease without esophagitis; I10 Essential (primary) hypertension; Z68.41 Body mass index [BMI] 40.0-44.9, adult; Z79.51 Long term (current) use of inhaled steroids; Z79.899 Other long term (current) drug therapy
CPT/HCPCS: 43775; 43659; 36415; 80048; 80053; 80061; 81025; 82306; 82607; 82728; 83036; 83540; 83970; 84425; 84443; 84590; 84630; 85014; 85018; 85025; 85610; 85730; 86140; 86850; 86900; 86901; 88304; 88305; 88307; 88342; C9145; J0131; J0330; J0665; J0690; J1100; J1170; J2250; J2371; J2405; J2550; J2704; J2765; J3010; J3480; J7120

== ENCOUNTER → 2023-06-17 08:00 | Outpatient (BNV) | payer OTHER, SELFPAY | PROVIDERS: Admitting Provider Surgery; PCP Family Medicine; Visit Provider Surgery | DX: E66.01 Morbid (severe) obesity due to excess calories (principal); Z68.41 Body mass index [BMI] 40.0-44.9, adult; Z90.3 Acquired absence of stomach [part of]; Z98.84 Bariatric surgery status; I10 Essential (primary) hypertension; G47.33 Obstructive sleep apnea (adult) (pediatric) | CPT/HCPCS: 43659; 43775; 99024; 99499 ==

== ENCOUNTER → 2023-06-23 09:39 | Outpatient (BNVA) | payer OTHER, SELFPAY | PROVIDERS: PCP Family Medicine; Visit Provider Surgery ==

== ENCOUNTER 2023-06-23 09:40 | Outpatient (AMB) | payer OTHER, SELFPAY ==
--- NOTE | 2023-06-23 09:41 | A.OFFVIS_ITS ---
Intake VS Expanded 06/23/23 09:56 BP 135/67 Blood Pressure Location Rt brachial Blood Pressure Position Sitting Pulse 96 Pulse Source Pulse Oximeter Temp 97.3 F Temperature Source Tympanic Pulse Oximetry 96 Oxygen Delivery Method Room Air Height 5 ft 4 in Weight 235 lb 3.2 oz BMI 40.4 Body Fat % 48.9 Body Fat Mass 114.8 Fat Free Mass 120.0 Intake Visit Reasons: (OV) 6 Days PO LSG 06/17/23 Allergies benzonatate Allergy (Intermediate, Verified 06/23/23 10:17) Hives almond Allergy (Mild, Verified 06/23/23 10:17) throat itching jackfruit Allergy (Intermediate, Uncoded 06/23/23 10:17) Swelling HPI HPI Comments History of Present Illness Details The patient is a 27-year-old woman who entered the surgical weight loss program at a weight of 279 lbs /BMI 47.9. After demonstrating healthy lifestyle changes with resultant weight loss, she underwent laparoscopic sleeve gastrectom y on 06/17/2023 without hiatal hernia repair. She presents today at a weight of 235.2/BMI 40.4 representing a 44 lb weight loss since entering the surgical weight loss program. Since surgery, she denies GERD, N/V, dysphagia, odynophagia. No regurgitation. +BM, denies constipation but noted loose stool from Premier powdered protein mix Current meal plan: Premier protein shakes, 90 grams (3 shakes/day) Flintstones chewable MVI 2 tab/day She was provided with samples of celebrate 4 in 1 that she did not tolerate due to taste which evoked nausea, which led to the current meal plan and multivi tamins. She tried Premier powdered mix & says she's having loose stool; she tolerated the premixed better & wants to resume. Excercise: She is walking 20-30 minutes per day and is interested in increasing her activity and asked about returning to the gym to use treadmill. She is cleared to do treadmill. [facility] Medical History GERD (gastroesophageal reflux disease) Asthma Sleep apnea HTN (hypertension) Surgical History Hx of wisdom tooth extraction Hx of colonoscopy Family History Mother Asthma Hypothyroid Restless leg syndrome Anxiety Sleep disorder Father GERD (gastroesophageal reflux disease) Seasonal allergies Brother No problems noted. Brother Seasonal allergies Maternal Grandfather Heart attack Household Members: Spouse Housing: House Are you a primary manager wound care to a significant other at home: No Do you presently have visiting nurse or other home services: No Alcohol intake: current Alcohol intake frequency: does not drink Patient Tobacco Use Status: Never used Tobacco service: No Physical Exam On exam, she is afebrile and nontoxic She is having no respiratory distress Abdominal incisions are healing well with no evidence of redness, cellulitis or evidence of infection. Abdomen has appropriate incisional tenderness. Results Reviewed Results Reviewed: Pathology from 06/17/2023 shows normal gastric mucosa with hemorrhage but no evidence of neoplasia nor Helicobacter Assessment & Plan Assessment & Plan (1) S/P laparoscopic sleeve gastrectomy: Code(s): Z98.84 - Bariatric surgery status (2) HTN (hypertension): Code(s): I10 - Essential (primary) hypertension (3) JOURDAN (obstructive sleep apnea): Code(s): G47.33 - Obstructive sleep apnea (adult) (pediatric) (4) Morbid obesity: Code(s): E66.01 - Morbid (severe) obesity due to excess calories Plan Patient will continue her current meal plan is instructed to continue it as long as possible since this is the time where most weight loss occurs. She will increase her activity and gradually work up to preop activity levels and trend her calorie expenditure as previously. She was reaching 300-350 kcal 4 times a week. Patient has a follow-up with Camelia later this week and will be scheduled with Carleen for dietary guidance. She will return to see me in 3 weeks and contact me if she has any problems. Activity restrictions, work note allowing her to return on half days tomorrow and possibly for 2 weeks was provided and meal plan were all discussed. Patient is congratulated on her 44 lb weight loss and is pleased with her progress. Coding Level of Care Code Global (04964) Diagnoses S/P laparoscopic sleeve gastrectomy Z98.84 HTN (hypertension) I10 JOURDAN (obstructive sleep apnea) G47.33 Morbid obesity E66.01
[2023-06-23 09:56] VITALS: BP 135/67; PULSE 96; TEMP 36.3; O2SAT 96; BMI 40.4
== END 2023-06-23 10:28 | disposition home or self-care (01) ==
PROVIDERS: PCP Family Medicine; Visit Provider Surgery
DX: E66.01 Morbid (severe) obesity due to excess calories (principal); Z68.41 Body mass index [BMI] 40.0-44.9, adult; Z90.3 Acquired absence of stomach [part of]; Z98.84 Bariatric surgery status; I10 Essential (primary) hypertension; G47.33 Obstructive sleep apnea (adult) (pediatric)
CPT/HCPCS: 99024

== ENCOUNTER 2023-06-26 11:31 | Outpatient (AMB) | payer OTHER, SELFPAY ==
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
== END 2023-06-26 11:33 | disposition home or self-care (01) ==
LOC: HO.HBST 11:31
PROVIDERS: PCP Family Medicine; Visit Provider Counselor Mental Health
DX: F33.1 Major depressive disorder, recurrent, moderate (principal); E66.01 Morbid (severe) obesity due to excess calories
CPT/HCPCS: 90832

== ENCOUNTER → 2023-06-26 11:31 | Outpatient (BNVA) | payer OTHER, SELFPAY | PROVIDERS: PCP Family Medicine; Visit Provider Counselor Mental Health ==

== ENCOUNTER 2023-07-07 08:34 | Outpatient (AMB) | payer OTHER, SELFPAY ==
--- NOTE | 2023-07-07 08:36 | A.OFFVIS_ITS ---
Intake VS Expanded 07/07/23 08:42 BP 122/57 L Blood Pressure Location Rt brachial Blood Pressure Position Sitting Pulse 114 H Pulse Source Pulse Oximeter Temp 96.6 F L Temperature Source Tympanic Pulse Oximetry 96 Oxygen Delivery Method Room Air Height 5 ft 4 in Weight 225 lb 9.6 oz BMI 38.7 Body Fat % 47.1 Body Fat Mass 106.2 Fat Free Mass 119.2 Visceral Fat Rating 11.0 Body Water % 38.0 Body Water Mass 106.2 Muscle Mass/Score 113.4 Basal Metabolic Rate/Score 1,731 Intake Visit Reasons: (OV) PO LSG 06/17/23 Allergies benzonatate Allergy (Intermediate, Verified 07/07/23 08:38) Hives almond Allergy (Mild, Verified 07/07/23 08:38) throat itching jackfruit Allergy (Intermediate, Uncoded 07/07/23 08:38) Swelling HPI HPI Comments History of Present Illness Details The patient is a 27-year-old woman who entered the surgical weight loss program at a weight of 279 lbs /BMI 47.9. After demonstrating healthy lifestyle changes with resultant weight loss, she underwent laparoscopic sleeve gastrectomy on 06/17/2023 without hiatal hernia repair. She presents today at a weight of 225.6/BMI 38.7 representing a 54 lb weight loss since entering the surgical weight loss program. Since surgery, she denies GERD, N/V, dysphagia, odynophagia. No regurgitation. +BM, denies constipation but noted loose stool from Premier powdered protein mix Her only complaint today is that of increased formation of tonsil stones, which she believes is due to her current protein shake and it is elevated calcium level. Current meal plan: Premier protein shakes, 90 grams (3 shakes/day) Flintstones chewable MVI 2 tab/day She was provided with samples of celebrate 4 in 1 that she did not tolerate due to taste which evoked nausea, which led to the current meal plan and multivitamins. She tried Premier powdered mix & says she's having loose stool; she tolerated the premixed better & wants to resume. Excercise: She is walking 300-400 kcal/session and asked about returning to the gym to use treadmill. She is cleared to do treadmill. [facility] Medical History Non-restorative sleep Major depressive disorder, recurrent, moderate GERD (gastroesophageal reflux disease) Asthma Sleep apnea HTN (hypertension) Surgical History Hx of laparoscopic partial gastrectomy Hx of wisdom tooth extraction Hx of colonoscopy Family History Mother Asthma Hypothyroid Restless leg syndrome Anxiety Sleep disorder Father GERD (gastroesophageal reflux disease) Seasonal allergies Brother No problems noted. Brother Seasonal allergies Maternal Grandfather Heart attack Social History (Reviewed 07/07/23 @ 08:55 by Tiago Medina MD, [facility], [facility]) Household Members: Spouse Housing: House Are you a primary medicare compliance auditor to a significant other at home: No Do you presently have visiting nurse or other home services: No Alcohol intake: current Alcohol intake frequency: does not drink Patient Tobacco Use Status: Never used Tobacco service: No Review of Systems Const All systems reviewed & are unremarkable except as noted in HPI and below Reports as per HPI Physical Exam On exam, she is afebrile and nontoxic She is having no respiratory distress Abdominal incisions are healing well with no evidence of redness, cellulitis or evidence of infection. Abdomen has appropriate incisional tenderness. Results Reviewed Results Reviewed: Pathology from 06/17/2023 shows normal gastric mucosa with hemorrhage but no evidence of neoplasia nor Helicobacter Assessment & Plan Assessment & Plan (1) S/P laparoscopic sleeve gastrectomy: Code(s): Z98.84 - Bariatric surgery status (2) HTN (hypertension): Code(s): I10 - Essential (primary) hypertension (3) JOURDAN (obstructive sleep apnea): Code(s): G47.33 - Obstructive sleep apnea (adult) (pediatric) (4) Morbid obesity: Code(s): E66.01 - Morbid (severe) obesity due to excess calories Plan Patient is congratulated on her 54 lb weight loss. She did express concerns about the increased issues of tonsil stones. Instructions regarding meal plan and activity reviewed. She has a follow-up with Carleen Kenyon our dietitian at the end of the month and will follow up with Sada Sánchez in July, in my absence. Her questions seemed to be satisfactorily answered. Coding Level of Care Code Global (64309) Diagnoses S/P laparoscopic sleeve gastrectomy Z98.84 HTN (hypertension) I10 JOURDAN (obstructive sleep apnea) G47.33 Morbid obesity E66.01
[2023-07-07 08:42] VITALS: BP 122/57; PULSE 114; TEMP 35.9; O2SAT 96; BMI 38.7
== END 2023-07-07 09:00 | disposition home or self-care (01) ==
PROVIDERS: PCP Family Medicine; Visit Provider Surgery
DX: Z98.84 Bariatric surgery status (principal); I10 Essential (primary) hypertension; G47.33 Obstructive sleep apnea (adult) (pediatric); E66.01 Morbid (severe) obesity due to excess calories
CPT/HCPCS: 99024

== ENCOUNTER → 2023-07-07 08:34 | Outpatient (BNVA) | payer OTHER, SELFPAY | PROVIDERS: PCP Family Medicine; Visit Provider Surgery ==

== ENCOUNTER 2023-07-21 13:15 | Outpatient (AMB) | payer OTHER, SELFPAY ==
--- NOTE | 2023-07-21 13:01 | MHC.AMNUTRGE ---
Intake Intake Visit Reasons: VIDEO PO LSG 06/17/23 Allergies benzonatate Allergy (Intermediate, Verified 07/07/23 08:38) Hives almond Allergy (Mild, Verified 07/07/23 08:38) throat itching jackfruit Allergy (Intermediate, Uncoded 07/07/23 08:38) Swelling HPI Nutrition Diet Assmnt Details 8:30am-10:30am Premier protein shake- was instructed to add water so she is getting only 1/2 a shake per meal 12:30-4:30pm shake -feels like she needs the time to slow down with this shake 6pm shake Only getting in 45g protein per day Pt reports she has tried her 50-60oz water per day total , includes shakes Vitamins: flinstones vitamins 2 per day Dietary counseling reduction Diagnosis Nutrition problem #1 overweight/obesity As related to (etiology) #1 excess energy intake and physical inactivity As evidenced by (sign/symptom) #1 high BMI Monitoring/Goals Nutrition problem monitoring total energy intake, level of knowledge/skill, total PRO intake and weight Outcome progress progressing Learning/Education Readiness to learn good Stages of change action Most Recent Diabetes Results: Cholesterol 166 mg/dL (<200) 06/03/23 HDL Cholesterol 39 mg/dL (>40) L 06/03/23 Triglycerides 61 mg/dL (<150) 06/03/23 Creatinine 0.67 mg/dL (0.5-1.4) 06/18/23 Blood Urea Nitrogen 4 mg/dL (9-16) L 06/18/23 Sodium 138 mmol/L (135-145) 06/18/23 Potassium 4.4 mmol/L (3.3-5.1) 06/18/23 Chloride 107 mmol/L (96-108) 06/18/23 Carbon Dioxide 20 mmol/L (22-29) L 06/18/23 Calcium 8.9 mg/dL (8.4-10.2) 06/18/23 AST 18 U/L (5-31) 06/03/23 ALT 15 U/L (0-31) 06/03/23 Total Protein 6.7 g/dL (6.5-8.0) 06/03/23 Albumin 4.0 g/dL (3.5-5.0) 06/03/23 PFSH Medical History (Reviewed 07/07/23 @ 08:55 by Tiago Medina MD, [facility], [facility]) Non-restorative sleep Major depressive disorder, recurrent, moderate GERD (gastroesophageal reflux disease) Asthma Sleep apnea HTN (hypertension) Surgical History (Reviewed 07/07/23 @ 08:55 by Tiago Medina MD, [facility], [facility]) Hx of laparoscopic partial gastrectomy Hx of wisdom tooth extraction Hx of colonoscopy Family History (Reviewed 07/07/23 @ 08:55 by Tiago Medina MD, [facility], [facility]) Mother Asthma Hypothyroid Restless leg syndrome Anxiety Sleep disorder Father GERD (gastroesophageal reflux disease) Seasonal allergies Brother No problems noted. Brother Seasonal allergies Maternal Grandfather Heart attack Social History (Reviewed 07/07/23 @ 08:55 by Tiago Medina MD, [facility], [facility]) Household Members: Spouse Housing: House Are you a primary care tech to a significant other at home: No Do you presently have visiting nurse or other home services: No Alcohol intake: current Alcohol intake frequency: does not drink Patient Tobacco Use Status: Never used Tobacco service: No Assessment & Plan Assessment & Plan (1) Obesity (BMI 30-39.9): Code(s): E66.9 - Obesity, unspecified Plan communicate as needed with office Patient Instructions: recommend full shakes for a total of 90g protein per day. may do 1oz soft protein daily if she is hydration well enough,. At 6-9wks PO, can trial celebrate MVI. Next corbin with Sada in 1 week Telehealth Telehealth Location of provider rendering services: practice address Location of patient: address on file Patient Identification confirmed using: Name, : Yes Telehealth method: voice only Patient verbally consented to treatment: Yes Patient verbally consented to billing insurance company: Yes Patient informed of any privacy concerns related to visit: Yes Minutes spent on Phone/Video with Pt.: 25 Coding Level of Care Code Nutr Indiv Subseq (37055) Diagnoses Obesity (BMI 30-39.9) E66.9 Time Spent (min) 25
== END 2023-07-21 13:17 | disposition home or self-care (01) ==
LOC: HO.HBS 13:15
PROVIDERS: PCP Family Medicine; Visit Provider Dietitian, Registered
DX: E66.9 Obesity, unspecified (principal)

== ENCOUNTER → 2023-07-21 13:15 | Outpatient (BNVA) | payer OTHER, SELFPAY | PROVIDERS: PCP Family Medicine; Visit Provider Dietitian, Registered | DX: E66.9 Obesity, unspecified (principal); Z98.84 Bariatric surgery status; Z71.3 Dietary counseling and surveillance | CPT/HCPCS: 97803 ==

== ENCOUNTER 2023-07-31 09:34 | Outpatient (AMB) | payer OTHER, SELFPAY ==
--- NOTE | 2023-07-31 09:02 | MHC.OFFVISWM ---
Intake VS Expanded 07/31/23 09:06 Height 5 ft 4 in Weight 218 lb 2 oz BMI 37.4 Intake Visit Reasons: (OV) PO LSG 06/17/23 Allergies benzonatate Allergy (Intermediate, Verified 07/07/23 08:38) Hives almond Allergy (Mild, Verified 07/07/23 08:38) throat itching jackfruit Allergy (Intermediate, Uncoded 07/07/23 08:38) Swelling Medication List - Last Reconciled 07/31/23 by Sada Sánchez PA-C citalopram 40 mg PO DAILY epinephrine 0.3 mg IM Q4H PRN fluticasone propionate 110 mcg/actuation (Flovent HFA) 1 puff inhalation BID pantoprazole 40 mg PO QAM 30 days pediatric multivitamin (Flintstones Multivitamin chewable tablet) 2 tabs PO DAILY sucralfate 10 mL PO BID 30 days HPI HPI Comments History of Present Illness Details Pt is now 6 weeks s/p LSg with Dr Medina. 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 TBWL is 60.8 lbs or 21.8 %. No n/v/reflux or abd pain. Taking 2 Flintsoone vitamins per day. Meal plan 8am - Premier RTD over 1.5 - 2hours 12 pm - same shake 6pm -1 scrambled egg OR 1 oz cc or yogurt 7pm - does not finish full shake Exercise - burn 300 - 400 calories walking or gym. Gym 3-4 d/week - treadmill, speed 3.0- 3.5, incline 0- 4, 30 - 45 minutes, PFSH Medical History Non-restorative sleep Major depressive disorder, recurrent, moderate GERD (gastroesophageal reflux disease) Asthma Sleep apnea HTN (hypertension) Surgical History Hx of laparoscopic partial gastrectomy Hx of wisdom tooth extraction Hx of colonoscopy Family History Mother Asthma Hypothyroid Restless leg syndrome Anxiety Sleep disorder Father GERD (gastroesophageal reflux disease) Seasonal allergies Brother No problems noted. Brother Seasonal allergies Maternal Grandfather Heart attack Social History Household Members: Spouse Housing: House Are you a primary intensive care anaesthetist to a significant other at home: No Do you presently have visiting nurse or other home services: No Alcohol intake: current Alcohol intake frequency: does not drink Patient Tobacco Use Status: Never used Tobacco service: No Assessment & Plan Assessment & Plan (1) Obesity: Code(s): E66.9 - Obesity, unspecified Plan: Great weight loss of 60.8 lbs so far, no longer taaking HTN meds. Wakes at 7:30 am 9- 9:30- powder with water or UAM over2 hours 1 pm- same shake 4pm - 1 oz of egg or fish , chicken 7 pm- third shake Start Bariatric MVI - with dinner Exercise - goal of 2,000 per week. minimum 5 d/ week - treadmill speed - 3.3, inline 1 - 7 - minimum 400 quin - 10 quin /min UE - 3 machines 15 lbs, ABD - machines- 15 lbs, LE - 30 lbs - 3 machines, 3 sets of 15 reps. My cell # given to patient to send me weekly weights and quesstions. Next appt 4 weeks with me. (2) S/P laparoscopic sleeve gastrectomy: Code(s): Z98.84 - Bariatric surgery status Plan: see above Telehealth Telehealth Location of provider rendering services: practice address Location of patient: address on file Patient Identification confirmed using: Name, : Yes Telehealth method: video Patient verbally consented to treatment: Yes Patient verbally consented to billing insurance company: Yes Patient informed of any privacy concerns related to visit: Yes Coding Level of Care Code Global (25637) Diagnoses Obesity E66.9 S/P laparoscopic sleeve gastrectomy Z98.84
[2023-07-31 09:06] VITALS: BMI 37.4
== END 2023-07-31 09:36 | disposition home or self-care (01) ==
LOC: HO.HBS 09:34
PROVIDERS: PCP Family Medicine; Visit Provider Physician Assistant
DX: E66.9 Obesity, unspecified (principal); Z98.84 Bariatric surgery status
CPT/HCPCS: 99024

== ENCOUNTER → 2023-07-31 09:34 | Outpatient (BNVA) | payer OTHER, SELFPAY | PROVIDERS: PCP Family Medicine; Visit Provider Physician Assistant ==

== ENCOUNTER 2023-08-11 13:11 | Outpatient (AMB) | payer OTHER, SELFPAY ==
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
== END 2023-08-14 11:43 | disposition home or self-care (01) ==
LOC: HO.HBST 13:11
PROVIDERS: PCP Family Medicine; Visit Provider Counselor Mental Health
DX: F43.20 Adjustment disorder, unspecified (principal); Z98.84 Bariatric surgery status
CPT/HCPCS: 90834

== ENCOUNTER → 2023-08-11 13:11 | Outpatient (BNVA) | payer OTHER, SELFPAY | PROVIDERS: PCP Family Medicine; Visit Provider Counselor Mental Health ==

== ENCOUNTER 2023-08-27 09:53 | Outpatient (AMB) | payer OTHER, SELFPAY ==
--- NOTE | 2023-08-27 09:29 | A.OFFVIS_ITS ---
Intake VS Expanded 08/27/23 09:36 Height 5 ft 4 in Weight 207 lb 6 oz BMI 35.6 Intake Visit Reasons: VIDEO PO LSG 06/17/23 Allergies benzonatate Allergy (Intermediate, Verified 07/07/23 08:38) Hives almond Allergy (Mild, Verified 07/07/23 08:38) throat itching jackfruit Allergy (Intermediate, Uncoded 07/07/23 08:38) Swelling Medication List - Last Reconciled 08/27/23 by Sada Sánchez PAKita citalopram 40 mg PO DAILY epinephrine 0.3 mg IM Q4H PRN fluticasone propionate 110 mcg/actuation (Flovent HFA) 1 puff inhalation BID pantoprazole 40 mg PO QAM 30 days sucralfate 10 mL PO BID 30 days HPI HPI Comments History of Present Illness Details Pt is now 8 weeks s/p LSG with Dr Emily martel. 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 TBWL is 7 1.4 lbs or 26 %. N o n/v/reflux or ab d pain. Meal poppy n- tried protein p owder - couldn't t olerate it 9 am - Premier RTD over 2hours 1 pm - same shake 5 pm -1 scr ambled egg OR not measured yogurt, c c, chicken 7pm - d oes not finish las t shake - about 3/ 4 Exercise - Gym 5 d/week - treadm ill, speed 3.0 - 4 .0, incline 0- 6, olivarez 350 - 400 ca l, 30 minutes. We ights - UE 15- 20 lbs (2 -3 machines , 2-3 sets of 10 r eps ) [facility] Medical History (Updated 08/27/23 @ 09:45 by Sada Sánchez PAEsmeC) Morbid obesity Non-restorative sleep Major depressive disorder, recurrent, moderate GERD (gastroesophageal reflux disease) Asthma Sleep apnea HTN (hypertension) Surgical History Hx of laparoscopic partial gastrectomy Hx of wisdom tooth extraction Hx of colonoscopy Family History Mother Asthma Hypothyroid Restless leg syndrome Anxiety Sleep disorder Father GERD (gastroesophageal reflux disease) Seasonal allergies Brother No problems noted. Brother Seasonal allergies Maternal Grandfather Heart attack Social History Household Members: Spouse Housing: House Are you a primary long term care pharmacist to a significant other at home: No Do you presently have visiting nurse or other home services: No Alcohol intake: current Alcohol intake frequency: does not drink Patient Tobacco Use Status: Never used Tobacco service: No Assessment & Plan Assessment & Plan (1) Obesity: Code(s): E66.9 - Obesity, unspecified Plan: 8 weeks post op doing very well. 9 am - Premier RTD over 2hours 1 pm - same shake 5 pm -2 oz - 4 forkfuls chicken/fish/egg 7pm - have half shake Exercise - Gym 5 d/week - treadmill, speed 3.0 - 4.0, incline 2 - 7 (change every 3 mintues), ol[address] - Weights - UE 15- 20 lbs (3 machines, 3 sets of 15 reps ), abd 2 machines - 15 lb, LE - 3 machines Next appt with me in 4 weeks, will send me weekly weights,. (2) S/P laparoscopic sleeve gastrectomy: Code(s): Z98.84 - Bariatric surgery status Plan see above Telehealth Telehealth Location of provider rendering services: practice address Location of patient: address on file Patient Identification confirmed using: Name, : Yes Telehealth method: video Patient verbally consented to treatment: Yes Patient verbally consented to billing insurance company: Yes Coding Level of Care Code Global (64210) Diagnoses Obesity E66.9 S/P laparoscopic sleeve gastrectomy Z98.84
[2023-08-27 09:36] VITALS: BMI 35.6
== END 2023-08-27 09:55 | disposition home or self-care (01) ==
LOC: HO.HBS 09:53
PROVIDERS: PCP Family Medicine; Visit Provider Physician Assistant
DX: E66.9 Obesity, unspecified (principal); Z98.84 Bariatric surgery status
CPT/HCPCS: 99024

== ENCOUNTER → 2023-08-27 09:53 | Outpatient (BNVA) | payer OTHER, SELFPAY | PROVIDERS: PCP Family Medicine; Visit Provider Physician Assistant ==

== ENCOUNTER 2023-09-15 12:57 | Outpatient (AMB) | payer OTHER, SELFPAY ==
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
== END 2023-09-15 13:03 | disposition home or self-care (01) ==
LOC: HO.HBST 12:57
PROVIDERS: PCP Family Medicine; Visit Provider Counselor Mental Health
DX: F43.20 Adjustment disorder, unspecified (principal); Z98.84 Bariatric surgery status
CPT/HCPCS: 90834

== ENCOUNTER → 2023-09-15 12:57 | Outpatient (BNVA) | payer OTHER, SELFPAY | PROVIDERS: PCP Family Medicine; Visit Provider Counselor Mental Health ==

== ENCOUNTER 2023-09-25 11:30 | Outpatient (AMB) | payer OTHER, SELFPAY ==
--- NOTE | 2023-09-25 10:59 | A.OFFVIS_ITS ---
Intake VS Expanded 09/25/23 11:43 Height 5 ft 4 in Weight 202 lb BMI 34.7 Intake Visit Reasons: VIDEO PO LSG 06/17/23 Allergies benzonatate Allergy (Intermediate, Verified 07/07/23 08:38) Hives almond Allergy (Mild, Verified 07/07/23 08:38) throat itching jackfruit Allergy (Intermediate, Uncoded 07/07/23 08:38) Swelling Medication List - Last Reconciled 09/25/23 by Sada Sánchez PAEsmeC citalopram 40 mg PO DAILY epinephrine 0.3 mg IM Q4H PRN fluticasone propionate 110 mcg/actuation (Flovent HFA) 1 puff inhalation BID yysepjpnwbqn-hmz-ovpc-FA-vit K 45 mg iron- 800 mcg-120 mcg (Bariatric Multivitamins) caps PO pantoprazole 40 mg PO QAM 30 days HPI HPI Comments History of Present Illness Details 28 yo woman now 3 months post op LSG wit h Dr Medina. 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 No gym x 2 weeks due to taking care of her ill grandfather - wants home work out ideas. Meal plan: sets phone alarms. Wakes at 6:30 am 8am - Premier RTD - over 2 hours 12pm- same shake - over 2hours 5 pm - 2 oz (4 forks) protein 7pm - same shake PFSH Medical History (Updated 08/27/23 @ 09:45 by KRISTIN LyonsC) Morbid obesity Non-restorative sleep Major depressive disorder, recurrent, moderate GERD (gastroesophageal reflux disease) Asthma Sleep apnea HTN (hypertension) Surgical History Hx of laparoscopic partial gastrectomy Hx of wisdom tooth extraction Hx of colonoscopy Family History Mother Asthma Hypothyroid Restless leg syndrome Anxiety Sleep disorder Father GERD (gastroesophageal reflux disease) Seasonal allergies Brother No problems noted. Brother Seasonal allergies Maternal Grandfather Heart attack Social History Household Members: Spouse Housing: House Are you a primary director of health care marketing to a significant other at home: No Do you presently have visiting nurse or other home services: No Alcohol intake: current Alcohol intake frequency: does not drink Patient Tobacco Use Status: Never used Tobacco service: No Assessment & Plan Assessment & Plan (1) S/P laparoscopic sleeve gastrectomy: Code(s): Z98.84 - Bariatric surgery status Plan: 3 months post op, feeling great. Has had slow down in her weight loss due to no exercise for 2 weeks, will resume now. Will decrease protein intake to about 90 grams per day Continue with 2 Premier full shakes, then dinner of 4 forks protein, 2 forks cooked vegetables, then in 2 weeks can have raw vegetables also. Gui shake at 7pm. No longer needs CPAP machine Exercise - thinks she wll be able to get to gym again next week. Ws going 5-7 d/ week - burning at least 400 calories. Next appt with Iris in October before patient leaves on vacation on . Patient is obese and is not considered stable at this time. I spent 29 minutes in total speaking with the patient via video conference counseling , reviewing records and charting in patients chart. . Telehealth Telehealth Location of provider rendering services: practice address Location of patient: address on file Patient Identification confirmed using: Name, : Yes Telehealth method: video Patient verbally consented to treatment: Yes Patient verbally consented to billing insurance company: Yes Patient informed of any privacy concerns related to visit: Yes Coding Level of Care Code Tele Est Pt Level 4 (17746) Diagnoses S/P laparoscopic sleeve gastrectomy Z98.84
[2023-09-25 11:43] VITALS: BMI 34.7
== END 2023-09-25 11:58 | disposition home or self-care (01) ==
LOC: HO.HBS 11:53
PROVIDERS: PCP Family Medicine; Visit Provider Physician Assistant
DX: E66.9 Obesity, unspecified (principal); Z68.34 Body mass index [BMI] 34.0-34.9, adult; Z90.3 Acquired absence of stomach [part of]; Z98.84 Bariatric surgery status
CPT/HCPCS: 99214

== ENCOUNTER → 2023-09-25 11:30 | Outpatient (BNVA) | payer OTHER, SELFPAY | PROVIDERS: PCP Family Medicine; Visit Provider Physician Assistant ==

== ENCOUNTER 2023-09-30 20:23 | Outpatient (AMB) | payer OTHER, SELFPAY ==
--- NOTE | 2023-10-03 11:59 | A.OFFWM_ITS ---
Intake Intake Visit Reasons: group therapy Allergies benzonatate Allergy (Intermediate, Verified 07/07/23 08:38) Hives almond Allergy (Mild, Verified 07/07/23 08:38) throat itching jackfruit Allergy (Intermediate, Uncoded 07/07/23 08:38) Swelling [facility] Medical History (Updated 08/27/23 @ 09:45 by Sada Sánchez PA-C) Morbid obesity Non-restorative sleep Major depressive disorder, recurrent, moderate GERD (gastroesophageal reflux disease) Asthma Sleep apnea HTN (hypertension) Surgical History Hx of laparoscopic partial gastrectomy Hx of wisdom tooth extraction Hx of colonoscopy Family History (Reviewed 07/07/23 @ 08:55 by Tiago Medina MD, FACS, [facility]) Mother Asthma Hypothyroid Restless leg syndrome Anxiety Sleep disorder Father GERD (gastroesophageal reflux disease) Seasonal allergies Brother No problems noted. Brother Seasonal allergies Maternal Grandfather Heart attack Social History Household Members: Spouse Housing: House Are you a primary acute care nurse practitioner to a significant other at home: No Do you presently have visiting nurse or other home services: No Alcohol intake: current Alcohol intake frequency: does not drink Patient Tobacco Use Status: Never used Tobacco service: No Behavioral Health Assessment Weight Management Therapy Therapy Notes Details Group therapy, open forum for patients to discuss needs, strengths and provide support. Patient shared about her radha and how it has changed her life. Group topic was about keeping desire and drive alive while in the process. Assessment & Plan Assessment & Plan (1) Adjustment disorder, unspecified: Code(s): F43.20 - Adjustment disorder, unspecified (2) S/P laparoscopic sleeve gastrectomy: Code(s): Z98.84 - Bariatric surgery status Plan Pt is doing very well, no depression, no anxiety, has changed her entire lifestyle and mindset. Pt is stable, she would like to be seen as needed. Also appropriate for group therapy and is interested in that. Coding Level of Care Code Tele y Diag Eval (46151) Diagnoses Adjustment disorder, unspecified F43.20 S/P laparoscopic sleeve gastrectomy Z98.84 Time Spent (min) 60
== END 2023-10-03 11:59 | disposition home or self-care (01) ==
LOC: HO.HBST 20:24
PROVIDERS: PCP Family Medicine; Visit Provider Counselor Mental Health
DX: F43.20 Adjustment disorder, unspecified (principal); Z98.84 Bariatric surgery status
CPT/HCPCS: 90791

== ENCOUNTER → 2023-09-30 20:23 | Outpatient (BNVA) | payer OTHER, SELFPAY | PROVIDERS: PCP Family Medicine; Visit Provider Counselor Mental Health ==

== ENCOUNTER 2023-11-23 11:39 | Outpatient (AMB) | payer OTHER, SELFPAY ==
--- NOTE | 2023-11-23 11:34 | MHC.OFFVISWM ---
VS Expanded 11/23/23 11:40 Height 5 ft 4 in Weight 199 lb 4 oz BMI 34.2 Intake Visit Reasons: (TELEPHONE) PO LSG 06/17/23 Allergies benzonatate Allergy (Intermediate, Verified 07/07/23 08:38) Hives almond Allergy (Mild, Verified 07/07/23 08:38) throat itching jackfruit Allergy (Intermediate, Uncoded 07/07/23 08:38) Swelling Medication List - Last Reconciled 11/23/23 by GRACIE Kang citalopram 40 mg PO DAILY desloratadine 5 mg PO DAILY epinephrine 0.3 mg IM Q4H PRN fluticasone propionate 110 mcg/actuation (Flovent HFA) 1 puff inhalation BID aohrtgizpdcs-fhi-lcap-FA-vit K 45 mg iron- 800 mcg-120 mcg (Bariatric Multivitamins) caps PO HPI Comments Details: This?is a?28?yo female who is s/p LSG 06/17/2023. Presents for 5 month post op visit. Weight at last visit on 09/25/2023 was 202 pounds with a BMI of 34.7, weight today is 199.4 pounds, representing a 2.6 pound weight loss with a BMI today of 34.2.? No complaints of nausea, emesis, abdominal pain or reflux, or constipation. Has been helping her grandfather after he had a heart attack, just got back from [place], wants to get back to gym after not going for a few weeks. Present meal plan includes: 2 Premier RTD shakes dinner of 4 forks protein, 2 forks vegetables Half shake after dinner MVI- bariatric choice Exercise routine includes: gym for 400 quin 5x week, cardio plus strength training [facility] Medical History (Updated 08/27/23 @ 09:45 by Sada Sánchez PA-C) Morbid obesity Non-restorative sleep Major depressive disorder, recurrent, moderate GERD (gastroesophageal reflux disease) Asthma Sleep apnea HTN (hypertension) Surgical History Hx of laparoscopic partial gastrectomy Hx of wisdom tooth extraction Hx of colonoscopy Family History Mother Asthma Hypothyroid Restless leg syndrome Anxiety Sleep disorder Father GERD (gastroesophageal reflux disease) Seasonal allergies Brother No problems noted. Brother Seasonal allergies Maternal Grandfather Heart attack Social History Household Members: Spouse Housing: House Are you a primary patient care secretary to a significant other at home: No Do you presently have visiting nurse or other home services: No Alcohol intake: current Alcohol intake frequency: does not drink Patient Tobacco Use Status: Never used Tobacco service: No Physical Exam Vital Signs: BMI result Body Mass Index 34.2 Telehealth Telehealth Telehealth Platform: Telephone Location of provider rendering services: other Location of patient: address on file Patient Identification confirmed using: Name, : Yes Telehealth method: voice only Patient verbally consented to treatment: Yes Patient verbally consented to billing insurance company: Yes Patient informed of any privacy concerns related to visit: Yes Minutes spent on Phone/Video with Pt.: 15 Assessment & Plan Assessment & Plan (1) Obesity: Code(s): E66.9 - Obesity, unspecified Category: Medical (2) S/P laparoscopic sleeve gastrectomy: Code(s): Z98.84 - Bariatric surgery status Category: Medical Plan Pt to keep same plan for now or can substitute 2 Fulfill protein bars for one of her RTD shakes (or half shake for half protein bar after dinner). She is motivated to resume exercise this week. Labs ordered, pt to have drawn prior to next visit. RTC 6 weeks. Patient is obese and is not considered stable at this time. I spent a total of 30 minutes reviewing/updating records, examining the patient and counseling the patient on weight management as detailed above. Orders: Orders Insulin Today Z98.84 - Bariatric surgery status Hemoglobin A1c Today Z98.84 - Bariatric surgery status Complete Blood Count Auto Diff Today Z98.84 - Bariatric surgery status Lipid Panel Today Z98.84 - Bariatric surgery status Comprehensive Met. Panel Today Z98.84 - Bariatric surgery status Vitamin B1 Today Z98.84 - Bariatric surgery status Vitamin A Today Z98.84 - Bariatric surgery status Ferritin Today Z98.84 - Bariatric surgery status Vitamin D 25-OH Total Today Z98.84 - Bariatric surgery status IRON PROFILE Today Z98.84 - Bariatric surgery status Vitamin B12 and Folate Today Z98.84 - Bariatric surgery status Zinc Today Z98.84 - Bariatric surgery status C Reactive Protein Today Z98.84 - Bariatric surgery status TSH reflex Free T4 Today Z98.84 - Bariatric surgery status
[2023-11-23 11:40] VITALS: BMI 34.2
== END 2023-11-23 12:00 | disposition home or self-care (01) ==
LOC: HO.HBS 11:40
PROVIDERS: PCP Family Medicine; Visit Provider Physician Assistant Surgical
DX: E66.9 Obesity, unspecified (principal); Z98.84 Bariatric surgery status
CPT/HCPCS: 99214

== ENCOUNTER → 2023-11-23 11:39 | Outpatient (BNVA) | payer OTHER, SELFPAY | PROVIDERS: PCP Family Medicine; Visit Provider Physician Assistant Surgical ==

== ENCOUNTER 2024-01-04 07:56 | Outpatient (REF) | payer OTHER, SELFPAY ==
[2024-01-04 08:11] LABS: MANUAL DIFF FLAG NO
[2024-01-04 08:42] LABS: Basophils Percent Auto 0.5 % (0-2); Eosinophils Absolute Auto 0.1 X10*3/uL (0.0-0.4); Eosinophils Percent Auto 2.3 % (0-4); Hematocrit 39.8 % (37.0-47.0); Hemoglobin 13.5 g/dl (12.0-16.0); Imm Gran Abs Auto 0.02 X10*3/uL (0.00-0.03); Imm Gran Pct Auto 0.4 % (0.0-0.4); Lymphocytes Absolute Auto 2.4 X10*3/uL (1.2-4.9); Mean Corpuscular HGB Conc 33.9 g/dl (31.0-35.0); Mean Corpuscular Hemoglobin 30.9 pg (27.0-33.0); Mean Corpuscular Volume 91.1 fL (80.0-98.0); Mean Platelet Volume 9.8 fL (9.4-12.3); Monocytes Absolute Auto 0.4 X10*3/uL (0.1-1.2); Monocytes Percent Auto 6.3 % (2-11); Neutrophils Absolute Auto 2.7 x10*3/uL (2.0-8.3); Neutrophils Percent Auto 48.5 % (45-73); Platelet Count 279 X10*3/uL (160-400); Red Blood Count 4.37 X10*6/uL (4.20-5.50); Red Cell Distribution Width 12.3 % (11.0-16.0); White Blood Count 5.6 X10*3/uL (4.8-10.8)
[2024-01-04 08:50] LABS: Estimated Average Glucose 88 mg/dL; Hemoglobin A1c % 4.7 % (<6.0)
[2024-01-04 09:31] LABS: Alanine Aminotransferase 13 U/L (0-31); Albumin Level 3.9 g/dL (3.5-5.0); Alkaline Phosphatase 88 U/L (39-117); Anion Gap 13 (12-20); Aspartate Amino Transferase 16 U/L (5-31); Bilirubin Total 0.5 mg/dL (0.0-1.0); Blood Urea Nitrogen 8 mg/dL (9-16); C Reactive Protein 1.04 mg/dL (< or = 0.50); Calcium 9.4 mg/dL (8.4-10.2); Carbon Dioxide 25 mmol/L (22-29); Chloride 107 mmol/L (96-108); Cholesterol 188 mg/dL (<200); Estimated Glomerular Filt Rate > 60; Glucose Random 80 mg/dL (60-115); HDL Cholesterol 44 mg/dL (>40); Iron 122 mcg/dL (30-160); LDL Cholesterol Calculated 124 mg/dL (<100); Percent Iron Saturation 44 % (15-50); Potassium 4.3 mmol/L (3.3-5.1); Sodium 141 mmol/L (135-145); Total Iron Binding Capacity 278 mcg/dL (228-428); Total Protein 6.7 g/dL (6.5-8.0); Triglycerides 100 mg/dL (<150); Unsaturated Iron Binding 156 ug/dL
[2024-01-04 09:51] LABS: Ferritin 89 ng/mL (10-122); TSH reflex Free T4 2.09 uIU/mL (0.32-4.0)
[2024-01-04 10:45] LABS: Insulin 10 uU/mL (2-29)
[2024-01-04 10:49] LABS: Folate 11.8 ng/mL (> or = 4.0); Vitamin B12 425 pg/mL (200-900)
[2024-01-06 13:23] LABS: Zinc 71 mcg/dL (60-130)
[2024-01-07 22:59] LABS: Vitamin A 52 mcg/dL (38-98)
[2024-01-09 11:28] LABS: Vitamin B1 14 nmol/L (8-30)
== END 2024-01-04 07:57 | disposition home or self-care (01) ==
LOC: HO.LAB 07:56
PROVIDERS: PCP Family Medicine; Visit Provider Physician Assistant Surgical
DX: Z98.84 Bariatric surgery status (principal)
CPT/HCPCS: 36415; 80053; 80061; 82306; 82607; 82728; 82746; 83036; 83525; 83540; 84425; 84443; 84590; 84630; 85025; 86140

== ENCOUNTER 2024-01-07 11:30 | Outpatient (AMB) | payer OTHER, SELFPAY ==
--- NOTE | 2024-01-07 11:29 | MHC.OFFVISWM ---
VS Expanded 01/07/24 11:32 Height 5 ft 4 in Weight 199 lb BMI 34.2 Intake Visit Reasons: TELEPHONE PO LSG 06/17/23 Allergies benzonatate Allergy (Intermediate, Verified 07/07/23 08:38) Hives almond Allergy (Mild, Verified 07/07/23 08:38) throat itching jackfruit Allergy (Intermediate, Uncoded 07/07/23 08:38) Swelling Medication List - Last Reconciled 01/07/24 by GRACIE Kang citalopram 40 mg PO DAILY desloratadine 5 mg PO DAILY epinephrine 0.3 mg IM Q4H PRN fluticasone propionate 110 mcg/actuation (Flovent HFA) 1 puff inhalation BID bjaclnhsqzgb-xzi-duxf-FA-vit K 45 mg iron- 800 mcg-120 mcg (Bariatric Multivitamins) caps PO HPI Comments Details: This?is a?28?yo female who is s/p LSG 06/17/2023. Presents for 6 month post op visit. Weight at last visit on 11/23/2023 was 199.4 pounds with a BMI of 34.2, weight today is same.? No complaints of nausea, emesis, abdominal pain or reflux, or constipation. Had a stressful month, recently moved. Had trouble getting to the gym as much. Present meal plan includes: 2 Premier RTD shakes dinner of 4 forks protein, 2 forks vegetables Half shake after dinner -can substitute 2 Fulfill protein bars for one of her RTD shakes (or half shake for half protein bar after dinner) MVI- bariatric choice Exercise routine includes: gym for 400 quin 5x week, cardio plus strength training recently bought a bike, plans to bike outdoors Did the patient ever have any of these conditions and are they resolved or still being treated? GERD: never JOURDAN:? resolved, off CPAP DM:? never HTN:? resolved- off lisinopril Hyperlipidemia:? never Post op complications:? none [facility] Medical History (Updated 08/27/23 @ 09:45 by Sada Sánchez PA-C) Morbid obesity Non-restorative sleep Major depressive disorder, recurrent, moderate GERD (gastroesophageal reflux disease) Asthma Sleep apnea HTN (hypertension) Surgical History Hx of laparoscopic partial gastrectomy Hx of wisdom tooth extraction Hx of colonoscopy Family History Mother Asthma Hypothyroid Restless leg syndrome Anxiety Sleep disorder Father GERD (gastroesophageal reflux disease) Seasonal allergies Brother No problems noted. Brother Seasonal allergies Maternal Grandfather Heart attack Social History Household Members: Spouse Housing: House Are you a primary director career to a significant other at home: No Do you presently have visiting nurse or other home services: No Alcohol intake: current Alcohol intake frequency: does not drink Patient Tobacco Use Status: Never used Tobacco service: No Telehealth Telehealth Telehealth Platform: Telephone Location of provider rendering services: practice address Location of patient: address on file Patient Identification confirmed using: Name, : Yes Telehealth method: voice only Patient verbally consented to treatment: Yes Patient verbally consented to billing insurance company: Yes Patient informed of any privacy concerns related to visit: Yes Minutes spent on Phone/Video with Pt.: 15 Assessment & Plan Assessment & Plan (1) Obesity: Code(s): E66.9 - Obesity, unspecified Category: Medical (2) S/P laparoscopic sleeve gastrectomy: Code(s): Z98.84 - Bariatric surgery status Category: Surgical Plan Pt to keep same meal plan of 2 shakes, 1 small meal. She understands that her lack of exercise is limiting her weight loss, plans to restart more activity now that she is more settled after moving. Labs reviewed, vit A/B1 pending, continue MVI. RTC 2 months. Patient is obese and is not considered stable at this time. I spent a total of 30 minutes reviewing/updating records, examining the patient and counseling the patient on weight management as detailed above.
[2024-01-07 11:32] VITALS: BMI 34.2
== END 2024-01-07 12:00 | disposition home or self-care (01) ==
LOC: HO.HBS 13:34
PROVIDERS: PCP Family Medicine; Visit Provider Physician Assistant Surgical
DX: E66.9 Obesity, unspecified (principal); Z98.84 Bariatric surgery status
CPT/HCPCS: 99214

== ENCOUNTER → 2024-01-07 11:30 | Outpatient (BNVA) | payer OTHER, SELFPAY | PROVIDERS: PCP Family Medicine; Visit Provider Physician Assistant Surgical | DX: E66.9 Obesity, unspecified (principal); Z98.84 Bariatric surgery status ==

== ENCOUNTER 2024-03-17 09:35 | Emergency (ER) | payer OTHER, SELFPAY ==
--- NOTE | ~2024-03-17 | XR_ITS ---
EXAMINATION: XR CHEST CLINICAL INFORMATION: Chest pain. COMPARISON: Chest radiograph 02/20/2023. TECHNIQUE: 2 views of the chest were obtained. FINDINGS: Normal appearance of the cardiomediastinal silhouette. No focal consolidation, pleural effusion or pneumothorax. No acute osseous findings. Surgical clips are seen in the upper abdomen. XR/XR chest 2V IMPRESSION: No acute cardiopulmonary findings. Electronically signed by: Debora Marcus MD 03/17/2024 11:22 AM EDT
--- NOTE | 2024-03-17 09:38 | ECG_ITS ---
Test Reason : chest discomfort Blood Pressure : / mmHG Vent. Rate : 094 BPM Atrial Rate : 094 BPM P-R Int : 132 ms QRS Dur : 066 ms QT Int : 332 ms P-R-T Axes : 063 075 028 degrees QTc Int : 415 ms Poor data quality, interpretation may be adversely affected Normal sinus rhythm Possible Left atrial enlargement Nonspecific ST abnormality Abnormal ECG When compared with ECG of 20-FEB-2023 08:13, Nonspecific ST abnormality is now Present Referred By: Generic ED Physician Electronically Signed By:KAMILAH WILLETT
[2024-03-17 09:47] VITALS: BP 156/91; PULSE 103; RESP 18; TEMP 37.1; O2SAT 99; BMI 36.9
[2024-03-17 10:00] VITALS: PULSE 92; RESP 18; TEMP 37.1; O2SAT 97
[2024-03-17 10:08] LABS: MANUAL DIFF FLAG NO
[2024-03-17 10:14] LABS: Basophils Percent Auto 0.6 % (0-2); Eosinophils Absolute Auto 0.1 X10*3/uL (0.0-0.4); Eosinophils Percent Auto 1.2 % (0-4); Hematocrit 40.1 % (37.0-47.0); Hemoglobin 13.9 g/dl (12.0-16.0); Imm Gran Abs Auto 0.02 X10*3/uL (0.00-0.03); Imm Gran Pct Auto 0.3 % (0.0-0.4); Lymphocytes Percent Auto 28.7 % (20-40); Mean Corpuscular HGB Conc 34.7 g/dl (31.0-35.0); Mean Corpuscular Hemoglobin 31.3 pg (27.0-33.0); Mean Corpuscular Volume 90.3 fL (80.0-98.0); Mean Platelet Volume 9.5 fL (9.4-12.3); Monocytes Absolute Auto 0.6 X10*3/uL (0.1-1.2); Monocytes Percent Auto 8.1 % (2-11); Neutrophils Absolute Auto 4.2 x10*3/uL (2.0-8.3); Neutrophils Percent Auto 61.1 % (45-73); Platelet Count 258 X10*3/uL (160-400); Red Blood Count 4.44 X10*6/uL (4.20-5.50); White Blood Count 6.8 X10*3/uL (4.8-10.8)
[2024-03-17 10:27] LABS: Alanine Aminotransferase 15 U/L (0-31); Alkaline Phosphatase 107 U/L (39-117); Anion Gap 10 (12-20); Aspartate Amino Transferase 18 U/L (5-31); Bilirubin Total 0.5 mg/dL (0.0-1.0); Blood Urea Nitrogen 11 mg/dL (9-16); Calcium 9.3 mg/dL (8.4-10.2); Carbon Dioxide 27 mmol/L (22-29); Chloride 108 mmol/L (96-108); Creatinine Clr Calc Pharmacy 140.9; Estimated Glomerular Filt Rate > 60; Glucose Random 90 mg/dL (60-115); Sodium 141 mmol/L (135-145); Total Protein 6.6 g/dL (6.5-8.0)
[2024-03-17 10:35] LABS: Troponin-I High Sensitivity < 2.7 ng/L (<3.5-17.0)
--- NOTE | 2024-03-17 10:40 | ED.CHESTPAIN ---
HPI - Chest Pain General Chief Complaint: Chest Pain Stated Complaint: migraines-chest discmfrt Time Seen by Provider: 03/17/24 10:40 History of Present Illness ED Provider: Angela JIMENEZ narrative: The patient is a 28-year-old woman who has a history of migraine headaches. She has been on control pills until about 1 month ago when her control pills were stopped to see if it would help her frequent headaches. She says that she continues to have the headaches. She comes to the emergency room today not because of a headache but because since Thursday, 3 days ago, she has had an unusual sensation in the right side of her chest. She feels like something is sticking into her through the back of her right chest and in the front of her chest she has a ?hollow feeling. ? This is not associated with any shortness of breath. The discomfort is not worsened by taking a deep breath. The patient is concerned that she gets frequent migraine headaches. She has not had any relief of her migraines since stopping control 1 month ago. She continues to have fairly frequent migraines. She does not currently have a migraine headache however. Related Data Home Medications ?Medication ?Instructions ?Recorded ?Confirmed citalopram 40 mg tablet 40 mg PO DAILY 01/15/23 01/07/24 epinephrine 0.3 mg/0.3 mL 0.3 mg IM Q4H PRN Anaphylaxis 01/15/23 01/07/24 injection, auto-injector fluticasone propionate 110 1 puff inhalation BID 01/15/23 01/07/24 mcg/actuation HFA aerosol inhaler (Flovent HFA) [id number]-[id number]-vkta 45 mg-folic cap PO 09/25/23 01/07/24 acid 800 mcg-vit K 120 mcg capsule (Bariatric Multivitamins) desloratadine 5 mg tablet 5 mg PO DAILY 11/23/23 01/07/24 Allergies Allergy/AdvReac Type Severity Reaction Status Date / Time benzonatate Allergy Intermediate Hives Verified 03/17/24 09:51 almond Allergy Mild throat Verified 03/17/24 09:51 itching jackfruit Allergy Intermediate Swelling Uncoded 03/17/24 09:51 Review of Systems Review of Systems: Yes all other systems are reviewed and are negative PMFSH Past Medical History Medical History (Updated 03/18/24 @ 00:00 by Background Daemon) Morbid obesity Non-restorative sleep Major depressive disorder, recurrent, moderate GERD (gastroesophageal reflux disease) Asthma Sleep apnea HTN (hypertension) Surgical History Hx of laparoscopic partial gastrectomy Hx of wisdom tooth extraction Hx of colonoscopy Family History Family History Mother Asthma Hypothyroid Restless leg syndrome Anxiety Sleep disorder Father GERD (gastroesophageal reflux disease) Seasonal allergies Brother No problems noted. Brother Seasonal allergies Maternal Grandfather Heart attack Social History Social History (Reviewed 07/07/23 @ 08:55 by Tiago Medina MD, [facility], [facility]) Household Members: Spouse Housing: House Are you a primary healthcare economics manager to a significant other at home: No Do you presently have visiting nurse or other home services: No Alcohol intake: current Alcohol intake frequency: does not drink Patient Tobacco Use Status: Never used Tobacco Advance Directives: No Advance Directives Information Provided: No service: No Physical Exam Vital Signs: Vital Signs: Last Vital Signs Temp 98.7 F 03/17/24 11:19 Pulse 92 03/17/24 11:19 Resp 18 03/17/24 11:19 BP 156/91 H 03/17/24 11:19 Pulse Ox 97 03/17/24 11:19 O2 Del Method Room Air 03/17/24 11:19 BMI result Body Mass Index 36.9 Const: Other: The patient is awake, alert, pleasant, cooperative. She does not appear uncomfortable or in distress. She does not appear short of breath. She does not appear ill in any way. HEENT: Other: Pupils are round equal, conjunctivae are clear, extraocular movements are intact. Eyes: Other: Pupils are round equal, conjunctivae are clear, extraocular movements intact Neck: Other: No JVD, no neck swelling Chest: Other: There is tenderness of the upper posterior chest around the right scapula. Palpation seems to reproduce her discomfort. Resp: Effort & Inspection: normal respiratory effort Auscultation: clear to auscultation bilaterally Cardio: Rate: regular rate Rhythm: regular rhythm Heart sounds: S1 normal heart sound present and S2 normal heart sound present GI: Other: Abdomen is soft and nontender Skin: Other: The skin is dry and unremarkable Neuro: Other: The patient is awake and alert. The patient has a normal mental status and is oriented and appropriate. Cranial nerves are grossly intact. She moves her extremities normally. She has a normal gait. She seems neurologically intact Extrem: Other: No calf swelling or tenderness, no asymmetry, no edema Medications Administered Discontinued Medications Generic Name Dose Route Start Last Admin Trade Name Brianna PRN Reason Stop Dose Admin Ibuprofen 400 mg 03/17/24 11:00 03/17/24 11:17 Ibuprofen 400 Mg Tablet PO 03/17/24 11:01 400 mg ONCE ONE Administration Medical Decision Making Medical Decision Making [facility] Narrative: The patient is a 28-year-old female who presents with a complaint of right-sided chest discomfort that is not pruritic and which is not associated with shortness of breath. She looks well. EKG shows some subtle nonspecific changes but is not frankly diagnostic. Chest x-ray is negative. Labs including a CBC and metabolic panel are normal. Troponin is undetectable. The patient's pain is somewhat worse with movement of the right arm and she seems to have tenderness around the right scapula that seems to reproduce her discomfort. Given the absence of any sense of shortness of breath and given the absence of any pleuritic quality to her discomfort I do not think she needs evaluation for a pulmonary embolism. The patient indicated that she had concerns that this discomfort could in some way be related to her frequent migraines. I do not see any connection between the discomfort she is describing today with a migraine syndrome. With regard to her migraine syndrome she may benefit from a primary care doctor referral to a headache specialist. I think this is probably musculoskeletal pain in the region of the right scapula. She will be discharged with instructions to use ibuprofen and acetaminophen. If she develops any respiratory symptoms or if she is significantly worse otherwise she should return. Lab Data 03/17/24 10:04 03/17/24 10:04 Labs: Lab Results 03/17/24 Range/Units 10:04 WBC 6.8 (4.8-10.8) X10*3/uL RBC 4.44 (4.20-5.50) X10*6/uL Hgb 13.9 (12.0-16.0) g/dl Hct 40.1 (37.0-47.0) % MCV 90.3 (80.0-98.0) fL MCH 31.3 (27.0-33.0) pg MCHC 34.7 (31.0-35.0) g/dl RDW 12.0 (11.0-16.0) % Plt Count 258 (160-400) X10*3/uL MPV 9.5 (9.4-12.3) fL Immature Gran % (Auto) 0.3 (0.0-0.4) % Neut % (Auto) 61.1 (45-73) % Lymph % (Auto) 28.7 (20-40) % Cavalier % (Auto) 8.1 (2-11) % Eos % (Auto) 1.2 (0-4) % Baso % (Auto) 0.6 (0-2) % Lymph # (Auto) 2.0 (1.2-4.9) X10*3/uL Cavalier # (Auto) 0.6 (0.1-1.2) X10*3/uL Eos # (Auto) 0.1 (0.0-0.4) X10*3/uL Baso # (Auto) 0.0 (0.0-0.2) X10*3/uL Abs Immat Gran (auto) 0.02 (0.00-0.03) X10*3/uL Absolute Neuts (auto) 4.2 (2.0-8.3) x10*3/uL Absolute Nucleated RBC 0.000 (0.0-0.012) X10*3/uL Nucleated RBC % (auto) 0.0 (0.0-0.2) /100WBC Sodium 141 (135-145) mmol/L Potassium 4.0 (3.3-5.1) mmol/L Chloride 108 (96-108) mmol/L Carbon Dioxide 27 (22-29) mmol/L Anion Gap 10 L (12-20) BUN 11 (9-16) mg/dL Creatinine 0.68 (0.5-1.4) mg/dL Estim Creat Clear Calc 140.9 Estimated GFR > 60 Random Glucose 90 (60-115) mg/dL Calcium 9.3 (8.4-10.2) mg/dL Total Bilirubin 0.5 (0.0-1.0) mg/dL AST 18 (5-31) U/L ALT 15 (0-31) U/L Alkaline Phosphatase 107 (39-117) U/L Troponin I High Sens < 2.7 (<3.5-17.0) ng/L Total Protein 6.6 (6.5-8.0) g/dL Albumin 4.0 (3.5-5.0) g/dL Discharge Plan Discharge Clinical Impression: Chest discomfort Patient Disposition: Home, Self-Care Additional Instructions: I think it is unlikely this chest discomfort is related to your migraines. I also think it is unlikely it is related to any acutely dangerous process. I think you may try ibuprofen as needed for the discomfort. Please plan on following up with your regular doctor soon to discuss this further. I would also recommend that you ask her regular doctor for referral to a headache specialist. Return to the emergency room if you feel short of breath or significantly worse in any other way. Prescriptions: No Action epinephrine 0.3 mg/0.3 mL auto-injector 0.3 mg IM Q4H PRN (Reason: Anaphylaxis) citalopram 40 mg tablet 40 mg PO DAILY fluticasone propionate [Flovent HFA] 110 mcg/actuation HFA aerosol inhaler 1 puff inhalation BID Bariatric Multivitamins 45 mg iron- 800 mcg-120 mcg capsule PO desloratadine 5 mg tablet 5 mg PO DAILY Referrals: Steve Granados DO [Primary Care Provider] - (right chest discomfort) Interventions: ED Discharge Assessment Last Done: 03/17/24 11:19 Discharge Date/Time: 03/17/24 11:19 Print Language: Polish
[2024-03-17] MEDS: Ibuprofen 400 MG TABLET PO (11:17)
[2024-03-17 11:19] VITALS: BP 156/91; PULSE 92; RESP 18; TEMP 37.1; O2SAT 97
== END 2024-03-17 11:19 | disposition home or self-care (01) ==
PROVIDERS: Emergency Provider Emergency Medicine; PCP Family Medicine
DX: R07.89 Other chest pain (principal); Z79.899 Other long term (current) drug therapy
CPT/HCPCS: 36415; 71046; 80053; 84484; 85025; 93005; 99283; 99284

== ENCOUNTER 2024-03-30 11:09 | Outpatient (AMB) | payer OTHER, SELFPAY ==
--- NOTE | 2024-03-30 11:04 | MHC.OFFVISWM ---
VS Expanded 03/30/24 11:10 Height 5 ft 4 in Weight 206 lb BMI 35.4 Intake Visit Reasons: telephone PO LSG 06/17/23 Allergies benzonatate Allergy (Intermediate, Verified 03/17/24 09:51) Hives almond Allergy (Mild, Verified 03/17/24 09:51) throat itching jackfruit Allergy (Intermediate, Uncoded 03/17/24 09:51) Swelling Medication List - Last Reconciled 03/30/24 by GRACIE Kang citalopram 40 mg PO DAILY desloratadine 5 mg PO DAILY PRN epinephrine 0.3 mg IM Q4H PRN fluticasone propionate 110 mcg/actuation (Flovent HFA) 1 puff inhalation BID PRN bfcgqflrutet-tzr-tldm-FA-vit K 45 mg iron- 800 mcg-120 mcg (Bariatric Multivitamins) caps PO HPI Comments Details: This?is a?28?yo female who is s/p LSG 06/17/2023. Presents for 9 month post op visit. Weight at last visit on 01/07/2024 was 199 pounds with a BMI of 34.2, weight today is 206 pounds, representing a 7 pound weight loss with a BMI today of 35.4.? No complaints of nausea, emesis, abdominal pain or reflux, or constipation. Pt reports increasing stress/anxiety, had ER visit for panic attack. Has her first appt with a therapist tomorrow. Had stopped following meal plan closely but recently restarted shakes. Has been having 1 shake in AM, 2 meals and lunch is not always high in protein. BP remains well controlled aside from an elevated reading in ER; pt monitors at home, off lisinopril. Present meal plan includes: 2 Premier RTD shakes dinner of 4 forks protein, 2 forks vegetables Half shake after dinner -can substitute 2 Fulfill protein bars for one of her RTD shakes (or half shake for half protein bar after dinner) MVI- bariatric choice Exercise routine includes: gym for 400 quin 5x week, cardio plus strength training recently bought a bike, has mostly been biking outdoors and walking PFSH Medical History (Updated 03/18/24 @ 00:00 by Background Daemon) Morbid obesity Non-restorative sleep Major depressive disorder, recurrent, moderate GERD (gastroesophageal reflux disease) Asthma Sleep apnea HTN (hypertension) Surgical History Hx of laparoscopic partial gastrectomy Hx of wisdom tooth extraction Hx of colonoscopy Family History Mother Asthma Hypothyroid Restless leg syndrome Anxiety Sleep disorder Father GERD (gastroesophageal reflux disease) Seasonal allergies Brother No problems noted. Brother Seasonal allergies Maternal Grandfather Heart attack Social History Household Members: Spouse Housing: House Are you a primary associate director career services to a significant other at home: No Do you presently have visiting nurse or other home services: No Alcohol intake: current Alcohol intake frequency: does not drink Patient Tobacco Use Status: Never used Tobacco service: No Telehealth Telehealth Telehealth Platform: Telephone Location of provider rendering services: other Location of patient: address on file Patient Identification confirmed using: Name, : Yes Telehealth method: voice only Patient verbally consented to treatment: Yes Patient verbally consented to billing insurance company: Yes Patient informed of any privacy concerns related to visit: Yes Minutes spent on Phone/Video with Pt.: 15 Assessment & Plan Assessment & Plan (1) Obesity: Code(s): E66.9 - Obesity, unspecified Category: Medical (2) S/P laparoscopic sleeve gastrectomy: Code(s): Z98.84 - Bariatric surgery status Category: Surgical Plan Pt plans to resume above meal plan, has appropriate supports set up after dealing with some mental health struggles. Outdoor biking and walking for exercise. Will continue to monitor BP at home. RTC 3 months for annual visit. I spent a total of 30 minutes reviewing/updating records, examining the patient and counseling the patient on weight management as detailed above.
[2024-03-30 11:10] VITALS: BMI 35.4
== END 2024-03-30 11:31 | disposition home or self-care (01) ==
LOC: HO.HBS 11:09
PROVIDERS: PCP Family Medicine; Visit Provider Physician Assistant Surgical
DX: E66.9 Obesity, unspecified (principal); Z98.84 Bariatric surgery status
CPT/HCPCS: 99214

== ENCOUNTER → 2024-03-30 11:09 | Outpatient (BNVA) | payer OTHER, SELFPAY | PROVIDERS: PCP Family Medicine; Visit Provider Physician Assistant Surgical ==

== ENCOUNTER 2024-07-11 09:40 | Outpatient (AMB) | payer OTHER, SELFPAY ==
--- NOTE | 2024-07-11 09:35 | A.OFFVIS_ITS ---
VS Expanded 07/11/24 09:41 Height 5 ft 4 in Weight 212 lb BMI 36.4 Intake Visit Reasons: TELEPHONE PO GBP 07/27/17 Allergies benzonatate Allergy (Intermediate, Verified 03/17/24 09:51) Hives almond Allergy (Mild, Verified 03/17/24 09:51) throat itching jackfruit Allergy (Intermediate, Uncoded 03/17/24 09:51) Swelling Medication List - Last Reconciled 07/11/24 by GRACIE Kang citalopram 40 mg PO DAILY desloratadine 5 mg PO DAILY PRN epinephrine 0.3 mg IM Q4H PRN fluticasone propionate 110 mcg/actuation (Flovent HFA) 1 puff inhalation BID PRN cpqrmwmbhfal-rwu-ghqt-FA-vit K 45 mg iron- 800 mcg-120 mcg (Bariatric Multivitamins) caps PO HPI Comments Details: This?is a?29?yo female who is s/p LSG 06/17/2023. Presents for 1 year post op v ирина. Weight at last visit on 03/30/2024 was 206 pounds, weight today is 212 pounds, representing a 6 pound weight gain with a BMI today of 36.4. She had actually gone up to 215lbs but lost a few lbs by being more mindful with eating and having more time to get the proper nutrition.? No complaints of nausea, emesis, abdominal pain or reflux, or constipation. Pt reports stress is better managed with the help of her new therapist. Living with her grandparents which is the source of some of her stress. 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 Present meal plan includes: 2 Premier RTD shakes dinner of 4 forks protein, 2 forks vegetables Half shake after dinner -can substitute 2 Fulfill protein bars for one of her RTD shakes (or half shake for half protein bar after dinner) MVI- bariatric choice -has been doing 2 protein shakes per day, then a meal of protein and veg; trying to stay away from carb Exercise routine includes: gym for 400 quin 5x week, cardio plus strength training recently bought a bike, has mostly been biking outdoors and walking Have you been diagnosed with reflux (GERD)? yes- now resolved Score 0-5: 0=no symptoms, 1=noticeable but not bothersome (slight or occasional), 2=noticeable, bothersome but not daily, 3=bothersome and daily, 4=affects daily activities, 5=incapacitating, unable to do daily activities How bad is the heartburn: 0 Heartburn when lying down: 0 Heartburn when standing up: 0 Heartburn after meals: 0 Does heartburn change your diet: 0 Does heartburn wake you up from sleep: 0 Do you have difficulty swallowin Do you have pain with swallowin If you take medication for reflux, does this affect your daily life: 0 Total score: 0 Did the patient ever have any of these conditions and are they resolved or still being treated? GERD: yes- resolved JOURDAN:? yes- resolved, off CPAP DM:? no? HTN:? yes- resolved Hyperlipidemia:? no? Post op complications:? none PFSH Medical History (Updated 03/18/24 @ 00:00 by Background Daemon) Morbid obesity Non-restorative sleep Major depressive disorder, recurrent, moderate GERD (gastroesophageal reflux disease) Asthma Sleep apnea HTN (hypertension) Surgical History Hx of laparoscopic partial gastrectomy Hx of wisdom tooth extraction Hx of colonoscopy Family History Mother Asthma Hypothyroid Restless leg syndrome Anxiety Sleep disorder Father GERD (gastroesophageal reflux disease) Seasonal allergies Brother No problems noted. Brother Seasonal allergies Maternal Grandfather Heart attack Social History Household Members: Spouse Housing: House Are you a primary health care technician to a significant other at home: No Do you presently have visiting nurse or other home services: No Alcohol intake: current Alcohol intake frequency: does not drink Patient Tobacco Use Status: Never used Tobacco service: No Telehealth Telehealth Telehealth Platform: Telephone Location of provider rendering services: practice address Location of patient: address on file Patient Identification confirmed using: Name, : Yes Telehealth method: voice only Patient verbally consented to treatment: Yes Patient verbally consented to billing insurance company: Yes Patient informed of any privacy concerns related to visit: Yes Minutes spent on Phone/Video with Pt.: 15 Assessment & Plan Assessment & Plan (1) S/P laparoscopic sleeve gastrectomy: Code(s): Z98.84 - Bariatric surgery status Category: Surgical (2) Obesity: Code(s): E66.9 - Obesity, unspecified Category: Medical Plan Pt would like to continue same meal plan, she feels it works well for her when she follows it. She has been able to lose 3 lbs in the last 2 weeks while being consistent on it. Annual labs ordered. Pt will reach out to me via text between visits with any concerns. RTC 3 months. I spent a total of 30 minutes reviewing/updating records, examining the patient and counseling the patient on weight management as detailed above. Orders: Orders Lipid Panel Today Z.84 - Bariatric surgery status Comprehensive Met. Panel Today Z.84 - Bariatric surgery status Vitamin B12 and Folate Today Z98.84 - Bariatric surgery status Zinc Today Z98.84 - Bariatric surgery status C Reactive Protein Today Z98.84 - Bariatric surgery status TSH reflex Free T4 Today Z98.84 - Bariatric surgery status Insulin Today Z98.84 - Bariatric surgery status Hemoglobin A1c Today Z98.84 - Bariatric surgery status Complete Blood Count Auto Diff Today Z98.84 - Bariatric surgery status IRON PROFILE Today Z98.84 - Bariatric surgery status Vitamin B1 Today Z98.84 - Bariatric surgery status Vitamin A Today Z98.84 - Bariatric surgery status Ferritin Today Z98.84 - Bariatric surgery status Vitamin D 25-OH Total Today Z98.84 - Bariatric surgery status
[2024-07-11 09:41] VITALS: BMI 36.4
== END 2024-07-11 09:51 | disposition home or self-care (01) ==
LOC: HO.HBS 09:40
PROVIDERS: PCP Family Medicine; Visit Provider Physician Assistant Surgical
DX: E66.9 Obesity, unspecified (principal); Z68.36 Body mass index [BMI] 36.0-36.9, adult; Z98.84 Bariatric surgery status
CPT/HCPCS: 99214

== ENCOUNTER 2024-10-12 11:01 | Outpatient (AMB) | payer OTHER, SELFPAY ==
--- NOTE | 2024-10-12 10:38 | A.OFFVIS_ITS ---
VS Expanded 10/12/24 10:40 Height 5 ft 4 in Weight 212 lb BMI 36.4 Intake Visit Reasons: TELEPHONE PO GBP 07/27/17 Allergies benzonatate Allergy (Intermediate, Verified 03/17/24 09:51) Hives almond Allergy (Mild, Verified 03/17/24 09:51) throat itching jackfruit Allergy (Intermediate, Uncoded 03/17/24 09:51) Swelling Medication List - Last Reconciled 10/12/24 by GRACIE Kang buspirone 5 mg PO TID citalopram 40 mg PO DAILY desloratadine 5 mg PO DAILY PRN epinephrine 0.3 mg IM Q4H PRN fluticasone propionate 110 mcg/actuation (Flovent HFA) 1 puff inhalation BID PRN lorazepam 0.5 mg PO BID PRN fmrpoczwkqpo-zjv-fghq-FA-vit K 45 mg iron- 800 mcg-120 mcg (Bariatric Multivitamins) caps PO HPI Comments Details: This?is a?29?yo female who is s/p LSG 06/17/2023. Presents for 1 year 4 month post op visit. Weight at last visit on 07/11/2024 was 212 pounds, weight today is same. Had gone up to 218lbs since last visit. No complaints of nausea, emesis, abdominal pain or reflux, or constipation. Had 2 panic attacks recently, had to go to hospital- working with therapist. Present meal plan includes: 2 Premier RTD shakes dinner of 4 forks protein, 2 forks vegetables Half shake after dinner -can substitute 2 Fulfill protein bars for one of her RTD shakes (or half shake for half protein bar after dinner) MVI- bariatric choice -has been doing 1 protein shake and 2 meals of protein, 1-2 bars per day Exercise routine includes: gym for 400 quin 5x week, cardio plus strength training working with a it trainer [facility] Medical History (Updated 03/18/24 @ 00:00 by Background Daemon) Morbid obesity Non-restorative sleep Major depressive disorder, recurrent, moderate GERD (gastroesophageal reflux disease) Asthma Sleep apnea HTN (hypertension) Surgical History Hx of laparoscopic partial gastrectomy Hx of wisdom tooth extraction Hx of colonoscopy Family History Mother Asthma Hypothyroid Restless leg syndrome Anxiety Sleep disorder Father GERD (gastroesophageal reflux disease) Seasonal allergies Brother No problems noted. Brother Seasonal allergies Maternal Grandfather Heart attack Social History Household Members: Spouse Housing: House Are you a primary career based intervention coordinator to a significant other at home: No Do you presently have visiting nurse or other home services: No Alcohol intake: current Alcohol intake frequency: does not drink Patient Tobacco Use Status: Never used Tobacco service: No Telehealth Telehealth Telehealth Platform: Telephone Location of provider rendering services: other Location of patient: address on file Patient Identification confirmed using: Name, : Yes Telehealth method: voice only Patient verbally consented to treatment: Yes Patient verbally consented to billing insurance company: Yes Patient informed of any privacy concerns related to visit: Yes Minutes spent on Phone/Video with Pt.: 16 Assessment & Plan Assessment & Plan (1) Obesity: Code(s): E66.9 - Obesity, unspecified Category: Medical (2) S/P laparoscopic sleeve gastrectomy: Code(s): Z98.84 - Bariatric surgery status Category: Medical Plan Discussed goal of 85g protein per day through combination of bars/shakes and a meal. Pt feels that things are going in the right direction, exercise has improved and is also helpful somewhat for her mental health. Will have labs done. RTC 3 months.
[2024-10-12 10:40] VITALS: BMI 36.4
--- OUTSIDE RECORDS SUMMARY | 2024-10-12 13:17 | XMS_ITS | Encounter Summary ---
Author Organization [facility] Address [address] [place] [address] Phone Care Team Providers Care Journeyman Mechanic Name Role Phone Tamie Cleary CNP Primary Care Provider [phone] Reason for Visit * Reason Comments Follow Up Visit Anxiety/depression f /u Encounter Details Date Type Department Care Team (Late st Contact Info) Description 09/29/2024 10:30 AM EST Office Visit [facility] [address] [place] [address] Tamie Cleary CNP [address], [address] [place] [address] [email or web address] Depression with anxiety (Primary Dx); Hx of bariatric surgery; Mild intermittent asthma without complication Social History Tobacco Use Types Packs/Day Years Used Date Smoking Tobacco: Never Smokeless Tobacco: Never Alcohol Use Standard Drinks/Week Comments Not Currently 0 (1 standard drink = 0.6 oz pur e alcohol) Child or Family Care Answer Date Record ed Do you have problems with on e of the following making it difficult for you to work, study, or receive health care? No 02/22/2024 Education Answer Date Recorded Are you interested in help w ith more adult education (for example, completing high school, GED, job training, learning the [place] language, technical skills, or developing parenting skills)? No 02/22/2024 Are you concerned about learning? Not on file 02/22/2024 No 02/22/2024 Yes 02/22/2024 Food Answer Date Recorded Within the past 6 months we worried whether our food would run out before we got money to buy more. Often True 024 Within the past 6 months the food we bought just didn't last and we didn't have enough money to get more. Sometimes True 01/25 Residential Stability Answer Date Recor ded What is your housing situation today? I am stayi ng with others 02/22/2024 How many times have you move d in the past 12 months? One time 02/22/2024 Paying for Meds Answer Date Recorded Do you have trouble paying for medicines? No 02/22/2024 Paying Utility Bills Answer Date Record ed Do you have trouble paying y our heating or electricity bill? I choose not to answer 02/22/2024 Transportation Answer Date Recorded Has the lack of transportati on kept you from medical appointments or from getting medications? No 02/22/2024 Unemployment Answer Date Recorded Are you currently unemployed or working on a part-time or temporary basis, and looking for work? No 02/22/2024 Digital Access Answer Date Recorded No 02/22/2024 Yes 02/22/2024 Do you have reliable internet access at home? Ye s 02/22/2024 Do you have a device (e.g., phone, tablet, computer) with a working camera? Yes 02/22/2024 Intimate Partner Violence Answer Date R ecorded Denied Basic Needs Not on file 02/22/2024 In the past 12 months have y ou been in a relationship with a person who hurts, threatens, or tries to control you? No 02/22/2024 Worried food would run out Not on file 02/21 In the past 12 months have y ou been in a relationship with a person who hurts, threatens, or tries to control you? No 02/22/2024 Sex and Gender Information Value Date Recorded Sex Assigned at Not on file Gender Identity Not on file Sexual Orientation Not on file documented as of this encounter Last Filed Vital Signs Vital Sign Reading Time Taken Comments Blood Pressure 110/70 09/29/2024 10:17 AM EST Pulse 88 09/29/2024 10:17 AM EST Temperature 37.3 ??C (99.1 ??F) 09/29/2024 10:[address] Respiratory Rate - - Oxygen Saturation 97% 09/29/2024 10:17 AM EST Inhaled Oxygen Concentration - - Weight 98.9 kg (218 lb) 09/29/2024 10:17 AM EST Height - - Body Mass Index 36.28 02/22/2024 9:23 AM EDT documented in this encounter Progress Notes * Tamie Cleary CNP - 09/29/2024 10:30 AM EST Subjective: Patient ID: Donna Downs is a 29 y.o. female. HPI - Donna presents for concerns of depression/anxiety. - She reports increased symptoms beginning about two months ago. Worse more over past month. Reports a lot of home stressors that are contributing. Continues seeing a therapist weekly. Reports a few panic attacks. Did have to go to ER for two of them. Can't figure out what is causing panic. - She is currently taking citalopram 40mg and hydroxyzine PRN. Denies side effects. In past was on sertraline but caused GI discomfort. Denies auditory or visual hallucinations. Reports passive SI, no plan. Review of Systems See HPI. Objective: Physical Exam Vitals reviewed. Constitutional: Appearance: Normal appearance. HENT: Head: Normocephalic. Eyes: Pupils: Pupils are equal, round, and reactive to light. Cardiovascular: Rate and Rhythm: Normal rate. Pulmonary: Effort: Pulmonary effort is normal. No respiratory distress. Musculoskeletal: General: Normal range of motion. Skin: General: Skin is warm and dry. Capillary Refill: Capillary refill takes less than 2 seconds. Neurological: Mental Status: She is alert and oriented to person, place, and time. Mental status is at baseline. Psychiatric: Mood and Affect: Mood normal. Thought Content: Thought content normal. Judgment: Judgment normal. Assessment/Plan: 1. Depression with anxiety (Primary) Assessment & Plan: Donna is experiencing worsened depression and anxiety at this time. She continues working with her therapist weekly. She is taking citalopram 40mg daily and hydroxyzine PRN. I have recommended adding buspirone to citalopram daily. Discussed tapering dose up to TID. I have given her lorazepam to be used instead of hydroxyzine for worsened anxiety/panic, I have asked her to use this very sparingly. Educated on medication administration, benefits, risks, and side effects profile including that this is a controlled substance and risk of dependence. She will return for follow up in 4 weeks. Discussed crisis resources if symptoms worsen. Orders: - busPIRone (BUSPAR) 5 MG tablet Dispense: 90 tablet; Refill: 0 - LORazepam (ATIVAN) 0.5 MG tablet Dispense: 14 tablet; Refill: 0 2. Hx of bariatric surgery - TSH with reflex - Vitamin B12 - Basic metabolic panel - 25-OH vitamin D 3. Mild intermittent asthma without complication Overview: Allergy induced. Spring & early summer allergies. Uses Flovent, albuterol, Flonase and loratadine seasonally Orders: - albuterol 90 mcg/actuation inhaler Dispense: 18 g; Refill: 2 Other orders - ketoconazole 2 % cream Dispense: 15 g; Refill: 0 Donna will return for follow up in 4 weeks. Will follow up sooner if symptoms worsen or new symptoms arise. Tamie Cleary CNP documented in this encounter Miscellaneous Notes * Assessment & Plan Note - Tamie Cleary CNP - 09/29/2024 12:17 PM EST Associated Problem(s): Depression with anxiety Donna is experiencing worsened depression and anxiety at this time. She continues working with her therapist weekly. She is taking citalopram 40mg daily and hydroxyzine PRN. I have recommended adding buspirone to citalopram daily. Discussed tapering dose up to TID. I have given her lorazepam to be used instead of hydroxyzine for worsened anxiety/panic, I have asked her to use this very sparingly. Educated on medication administration, benefits, risks, and side effects profile including that this is a controlled substance and risk of dependence. She will return for follow up in 4 weeks. Discussed crisis resources if symptoms worsen. documented in this encounter Plan of Treatment Upcoming Encounters Date Type Department Care Team (Late st Contact Info) Description 11/02/2024 8:00 AM EDT Office Visit [facility] [address] [place] [address] Tamie Cleary CNP [address], [address] [place] [address] documented as of this encounter Results * 25-OH vitamin D (09/29/2024 11:00 AM EST) 25 OH VIT D (TOTAL) 32 30 - 60 ng/mL [facility] Blood 09/29/2024 11:0 0 AM EST 09/29/2024 11:05 AM EST Tamie Cleary CNP LAB BLOOD ORDERABLES [address] [address] * Basic metabolic panel (09/29/2024 11:00 AM EST) SODIUM 142 133 - 146 mmol/L [facility] CHLORIDE 108 96 - 108 mmol/L [facility] POTASSIUM 4.5 3.3 - 5.1 mmol/L [facility] CO2 24 21 - 35 mmol/L [facility] BUN 7 6 - 19 mg/dL [facility] CREATININE 0.70 0.5 - 1.5 mg/dL [facility] GLUCOSE 89 70 - 99 mg/dL [facility] CALCIUM 9.2 8.4 - 10.3 mg/dL [facility] EGFR >120 >59 mL/min/1.7 3m2 [facility] Comment:Estimated glomerular filtration rate calculated using the CKD-EPI refit equation. ANION GAP 15 10 - 20 mmol/L [facility] Blood 09/29/2024 11:0 0 AM EST 09/29/2024 11:05 AM EST Tamie Cleary CNP LAB BLOOD ORDERABLES [address] [address] * Vitamin B12 (09/29/2024 11:00 AM EST) VITAMIN B12 737 232 - 1,245 pg/mL [facility] Blood 09/29/2024 11:0 0 AM EST 09/29/2024 11:05 AM EST Tamie Cleary SOCIAL AND POLITICAL STUDIES PROFESSOR LAB BLOOD ORDERABLES Performing Organization Address City/[facility] Co de Phone Number [address] [address] * TSH with reflex (09/29/2024 11:00 AM EST) TSH 0.89 0.27 - 4.20 uIU/mL [facility] Blood 09/29/2024 11:0 0 AM EST 09/29/2024 11:05 AM EST Tamie Cleary [facility] LAB BLOOD ORDERABLES Performing Organization Address City/[facility] de Phone Number [address] [address] documented in this encounter Visit Diagnoses Diagnosis Depression with anxiety- Primary Dysthymic disorder Hx of bariatric surgery Mild intermittent asthma without complication documented in this encounter Additional Health Concerns Assessment Noted Time PHQ-9 Depression Total Score: 20 025 10:23 AM EST PHQ-2 Depression Total Score: 6 09/30/19 25 10:23 AM EST documented as of this encounter Care Teams Journeyman Mechanic Relationship Specialty Start Date End Date Tamie Cleary CNP [address] [place] [address], [address] [place] [address] PCP - General Nurse Practitioner 06/24/23 documented as of this encounter Additional Source Comments The information contained in this document represents components of the legal health record. It is not the complete legal health record.[facility]
--- OUTSIDE RECORDS SUMMARY | 2024-10-12 13:17 | XMS_ITS | Encounter Summary ---
Author Organization [facility] Address [address] [place] [address] Phone Care Team Providers Care Chief Learning Officer Name Role Phone Chelsie Dunbar MD Primary Care Provider [phone] Reason for Visit * Reason Comments Med Refill Encounter Details Date Type Department Care Team (Late st Contact Info) Description 07/17/2017 Refill [facility] - [address], [address] [place] [address] Chelsie Dunbar MD [address] [place] [address] Cough (Primary Dx) Social History Tobacco Use Types Packs/Day Years Used Date Smoking Tobacco: Never Assessed Comments Unknown Sex and Gender Information Value Date Recorded Sex Assigned at Not on file Legal Sex Female 3:05 PM EST Gender Identity Not on file Sexual Orientation Not on file documented as of this encounter Miscellaneous Notes * Telephone Encounter - Chelsie Dunbar MD - 07/18/2017 12:35 PM EST Rx sent. documented in this encounter Plan of Treatment Not on file documented as of this encounter Visit Diagnoses Diagnosis Cough- Primary documented in this encounter Care Teams Chief Learning Officer Relationship Specialty Start Date End Date Chelsie Dunbar MD [address] [place] [address] PCP - General 09/16/16 02/03/21 documented as of this encounter
--- OUTSIDE RECORDS SUMMARY | 2024-10-12 13:17 | XMS_ITS | Encounter Summary ---
Author Organization [facility] Address [address] [place] [address] Phone Care Team Providers Care Watchmaking Teacher Name Role Phone [place]isha s[place] CHENG Primary Care Provider [phone] Encounter Details Date Type Department Care Team (Latest Contact Info) Description 09/29/2024 11:00 AM EST - 09/29/2024 11:59 PM [facility] Hospital Encounter [facility] [address] [place] [address] Madiha Tamie, SKYLAR [address] [facility] [address], [address] [place] [address] [email or web address] [email or web address] Disposition: Home or Self Care Social History Tobacco Use Types Packs/Day Years [...] high school, GED, job training, learning the [place] language, technical skills, or developing parenting skills)? [...] on file documented as of this encounter Medications at Time of Discharge Medication Sig Dispensed Refills Start Date End Date albuterol 90 mcg/actuation inhalerIndications:Mild intermittent asthma without complication Inhale 2 puffs into the lungs every 6 (six) hours as needed for wheezing. 18 g 2 09/29/2024 betamethasone dipropionate 0.05 % creamIndications:Flexura l eczema Apply to affected area daily for 2 weeks 15 g 1 10/30/2021 busPIRone (BUSPAR) 5 MG tabletIndications:Deprmarija aleisha with anxiety Take 1 tablet (5 mg total) by mouth 3 (three) times a day. 90 tablet 09/29/2024 citalopram (CELEXA) 40 MG tabletIndications:NAZ (generalized anxiety disorder),Mild episode of recurrent major depressive disorder take 1 tablet by mouth every day 90 tablet 2 11/19/2023 EPINEPHrine 0.3 mg/0.3 mL auto-injectorIndications :Multiple food allergies Inject 0.3 mL (0.3 mg total) into the muscle as needed for anaphylaxis. 2 each 1 08/29/2020 fluconazole (DIFLUCAN) 150 MG tablet Take 1 tablet (150 mg total) by mouth daily. Can repeat dose in 72 hours if symptoms persist. 2 tablet 06/15/2024 fluticasone propionate (FLONASE) 50 mcg/actuation nasal sprayIndications:Seasona l allergic rhinitis due to pollen 1 spray per nostril once daily 9.9 mL 5 10/30/2021 hydrOXYzine (ATARAX) 25 MG tabletIndications:NAZ (generalized anxiety disorder) Take 1 tablet (25 mg total) by mouth 3 (three) times a day as needed for itching. 30 tablet 03/30/2024 ketoconazole 2 % cream Apply topically daily. 15 g 09/29/2024 LORazepam (ATIVAN) 0.5 MG tabletIndications:Deprmarija aleisha with anxiety Take 1 tablet (0.5 mg total) by mouth every 6 (six) hours as needed for anxiety. 14 tablet 09/29/2024 iqosdogflqxx-lbn-ltcm-FA -vit K (BARIATRIC MULTIVITAMINS) 45 mg iron- 800 mcg-120 mcg Cap Take by mouth. riboflavin, vitamin B2, (,VITAMIN B-2,) 100 mg Tab Take 100 mg by mouth daily. SUMAtriptan (IMITREX) 50 MG tabletIndications:Migrai ne with aura and without status migrainosus, not intractable Take 1 tablet (50 mg total) by mouth once as needed for migraine. Can repeat dose in 2 hours if needed. Do not exceed 2 doses in a 24 hour period. Max dose 200mg/ day 12 tablet 2 03/17/2024 documented as of this encounter Plan of Treatment Upcoming Encounters Date Type Department Care Team (Late st Contact Info) Description 11/02/2024 8:00 AM EDT Office Visit [facility] [address] [place] [address] Tamie Cleary CNP [address] [facility], [address] [place] [address] [email or web address] documented as of this encounter Procedures Procedure Name Priority Date/Time Associated Diagnosis Comments TSH WITH REFLEX Routine 09/29/2024 11:00 AM EST Hx of bariatric surgery 25-OH VITAMIN D Routine 09/29/2024 11:00 AM EST Hx of bariatric surgery VITAMIN B12 Routine 09/29/2024 11:00 AM EST Hx of bariatric surgery BASIC METABOLIC PANEL Routine 09/29/2024 11:00 AM EST Hx of bariatric surgery documented in this encounter Results * TSH with reflex (09/29/2024 11:00 AM EST) TSH 0.89 0.27 - 4.20 uIU/mL [facility] Blood 09/29/2024 11:0 0 AM EST 09/29/2024 11:05 AM EST Tamie Cleary HAND FINISHER LAB BLOOD ORDERABLES [address] [address] * Vitamin B12 (09/29/2024 11:00 AM EST) VITAMIN B12 737 232 - 1,245 pg/mL [facility] Blood 09/29/2024 11:0 0 AM EST 09/29/2024 11:05 AM EST Tamie Cleary SKYLAR LAB BLOOD ORDERABLES [address] [address] * Basic metabolic panel (09/29/2024 11:00 AM EST) SODIUM 142 133 - 146 mmol/L [facility] CHLORIDE 108 96 - 108 mmol/L [facility] POTASSIUM 4.5 3.3 - 5.1 mmol/L [facility] CO2 24 21 - 35 mmol/L [facility] BUN 7 6 - 19 mg/dL [facility] CREATININE 0.70 0.5 - 1.5 mg/dL [facility] GLUCOSE 89 70 - 99 mg/dL [facility] CALCIUM 9.2 8.4 - 10.3 mg/dL [facility] EGFR >120 >59 mL/min/1.7 3m2 [facility] Comment:Estimated glomerular filtration rate calculated using the CKD-EPI refit equation. ANION GAP 15 10 - 20 mmol/L [facility] Blood 09/29/2024 11:0 0 AM EST 09/29/2024 11:05 AM EST Tamie Cleary HAND FINISHER LAB BLOOD ORDERABLES [address] [address] * 25-OH vitamin D (09/29/2024 11:00 AM EST) 25 OH VIT D (TOTAL) 32 30 - 60 ng/mL [facility] Blood 09/29/2024 11:0 0 AM EST 09/29/2024 11:05 AM EST Tamie Cleary [facility] LAB BLOOD ORDERABLES [address] [address] documented in this encounter Visit Diagnoses Diagnosis Hx of bariatric surgery documented in this encounter Additional Health Concerns Assessment Noted Time PHQ-9 Depression Total Score: 20 025 10:23 AM EST PHQ-2 Depression Total Score: 6 09/30/19 25 10:23 AM EST documented as of this encounter Care Teams Watchmaking Teacher Relationship Specialty Start Date End Date Ruth Ann ClearySKYLAR landis [address] [place] [address], [address] [place] [address] [email or web address] PCP - General Nurse Practitioner 06/24/23 documented as of this encounter Additional Source Comments The information contained in this document represents components of the legal health record. It is not the complete legal health record.[facility]
--- OUTSIDE RECORDS SUMMARY | 2024-10-12 13:17 | XMS_ITS | Encounter Summary ---
Author Organization [facility] Address [address] [place] [address] Phone Care Team Providers Care Cellar Hand Name Role Phone Chelsie Dunbar MD Primary Care Provider [phone] Encounter Details Date Type Department Care Team (Late st Contact Info) Description 03/04/2017 Conversion Encounter [facility] - [address], [address] [place] [address] Chelsie Dunbar MD [address] [place] [address] Social History Tobacco Use Types Packs/Day Years Used Date Smoking Tobacco: Never Assessed Comments Unknown Sex and Gender Information Value Date Recorded Sex Assigned at Not on file Legal Sex Female 3:05 PM EST Gender Identity Not on file Sexual Orientation Not on file documented as of this encounter Plan of Treatment Not on file documented as of this encounter Visit Diagnoses Not on filedocumented in this encounter Care Teams Cellar Hand Relationship Specialty Start Date End Date Chelsie Dunbar MD [address] [place] [address] PCP - General 09/16/16 02/03/21 documented as of this encounter
--- OUTSIDE RECORDS SUMMARY | 2024-10-12 13:17 | XMS_ITS | Clinical Summary ---
Author Organization [facility] Address [address] [place] [address] Phone Care Team Providers Care Clinical Lab Technologist Name Role Phone Unavailable Primary Care Provider Unavailabl e Medications ALTAVERA 0.15-30 MG-MCG per tabletIndication s:Dysmenorrhea TAKE 1 TABLET BY MOUTH EVERY DAY 28 tablet 11 04/09/2017 Active fluticasone HFA (FLOVENT HFA) 110 MCG/ACT inhalerIndicatio ns:Cough Inhale 2 puffs 2 (two) times a day. 1 Units 2 07/18/2017 Active Active Problems Problem Noted Date Diagnosed Date Cough 12/31/2015 Immunizations Immunization Administration Dates Next Due DTaP 06/17/2000, 8,1996, 997,1996 HPV, Quadrivalent 02/17/2008,09/30/2007,08/03/19 08 Hep B, ped/adol 03/09/1997,1996,1996 Hib (PRP-T) 09/05/1997, 7,1996, 997 IPV 06/17/2000 Influenza 03/31/2008 Influenza, injectable, trivalent 05/19/2012 Influenza, intranasal, quadrivalent 06/27/2014 MMR 06/04/2001,09/05/1997 Meningococcal Conj (Menactra) MCV4P 06/27/2014,0 02/22/2009 OPV 1996,1996,1996 Tdap 02/22/2009 Varicella 08/10/2006,06/02/1997 Family History Relation Name Status Comments Father Alive Father: alondra dutton Father's Brother Paternal Un chadwick: allergies Maternal Grandfather Mat Gr- GFather: substance abuse Maternal Grandmother Mat GMo ther: allergies, arthritis Mother Alive Mother: alondra es, arthritis, kidney d/o, anxiety, migraine, had 2 sons who were premature, hypothyroidism Other 1 allergies Other 2 allergies Other 3 allergies Other 4 allergies, arth ritis Other 5 arthritis, kidn ey d/o Other 6 glaucoma Other 7 substance abuse Other 8 Alive 1 brother - all ergies, ADD, asthma; 2nd brother - overweight Other 9 Alive allergies Other 10 Alive allergies, arth ritis, kidney d/o, anxiety, migraine, had 2 sons who were premature, hypothyroidism Paternal Grandmother Pat GMo ther: glaucoma Social History Tobacco Use Types Packs/Day Years Used Date Smoking Tobacco: Never Assessed Comments Unknown Sex and Gender Information Value Date Recorded Sex Assigned at Not on file Legal Sex Female 3:05 PM EST Gender Identity Not on file Sexual Orientation Not on file Last Filed Vital Signs Vital Sign Reading Time Taken Comments Blood Pressure 118/66 12/31/2015 12:00 AM EDT Pulse 88 12/31/2015 12:00 AM EDT Temperature 36.7 ??C (98 ??F) 09/10/2016 12:00 AM EST Respiratory Rate - - Oxygen Saturation 98% 06/14/2011 12:00 AM EST Inhaled Oxygen Concentration - - Weight 97.3 kg (214 lb 6.4 oz) 09/10/2016 12:00 AM EST Height 165.7 cm (5' 5.25 ) 12/31/2015 12:00 AM E DT Body Mass Index 35.4 12/31/2015 12:00 AM EDT Plan of Treatment Health Maintenance Due Date Last Done Comments DTaP,Tdap,and Td Vaccines (7 - Td or Tdap) 02/22/2019 02/22/2009, 06/17/2000, 11/30/1997, Additional history exists Influenza Vaccines (#1) 2024 06/27/20 14, 05/19/2012, 03/31/2008 COVID-19 Vaccine (2023-25 season) 2024 Hepatitis B Vaccines Completed 03/09/1997, 1996, 1996 HIB Vaccines Completed 09/05/1997, 11/24, 1996, Additional history exists IPV Vaccines Completed 06/17/2000, 11/24, 1996, Additional history exists MMR Vaccines Completed 06/04/2001, 09/05/1997 Varicella Vaccines Completed 08/10/2006, 06/02/1997 HPV Vaccines Completed 02/17/2008, 12/2007, 08/03/2007 Meningococcal Vaccine Completed 06/27/2014, 009 Hepatitis A Vaccines Aged Out No long er eligible based on patient's age to complete this topic Men B Vaccine Aged Out No longer elig ible based on patient's age to complete this topic Pneumococcal Vaccine Aged Out No long er eligible based on patient's age to complete this topic Procedures * Due to [place] [employer] law, this organization might not be sharing sensitive test results. Procedure Name Priority Date/Time Associated Diagnosis Comments CHLAMYDIA TRACHOMATIS, AMPLIFIED Routine 12/31/2015 12:00 AM EDT from Last 3 Months or Most Recently Relevant to Health Maintenance Results * Due to [place] [employer] law, this organization might not be sharing sensitive test results. * Chlamydia trachomatis, Amplified (12/31/2015 12:00 AM EDT) Chlamydia Trachomatis DNA BY PCR ~Test not done [facility] Comment: Emmanuelle Henning ??02/01/2016 11:30:37 AM > ~Test not done 12/31/2015 Narrative [facility] - 12/31/2015 12:00 AM EDT Chlamydia trachomatis detection by PCR us Chelsie Dunbar MD LAB BLOOD ORDERABLES Final Res ult [facility]VERTED LAB[facility] from Last 3 Months or Most Recently Relevant to Health Maintenance
--- OUTSIDE RECORDS SUMMARY | 2024-10-12 13:17 | XMS_ITS | Clinical Summary ---
Author Organization [facility] Address [address] [place] [address] [place] [id number] Phone Care Team Providers Care Study Abroad Coordinator Name Role Phone Tamie Cleary SKYLAR Primary Care Provider Allergies Active Allergy Reactions Criticality Noted Date Comments [place] 02/17/2018 Fruit Flavor Swelling,Angioedema High 08/29/2020 V[place]id Fruit Benzonatate 05/20/2021 itching Vanilla Tincture 02/17/2018 Medications Medication Sig Dispensed Refills Start Date End Date Status EPINEPHrine 0.3 mg/0.3 mL auto-injectorIndic ations:Multiple food allergies Inject 0.3 mL (0.3 mg total) into the muscle as needed for anaphylaxis. 2 each 1 08/29/2020 Active betamethasone dipropionate 0.05 % creamIndications:F lexural eczema Apply to affected area daily for 2 weeks 15 g 1 10/30/2021 Active Additional Information Patient taking differently: Apply to affected area daily for 2 weeks PRN, Reported on 02/22/2024 fluticasone propionate (FLONASE) 50 mcg/actuation nasal sprayIndications:S easonal allergic rhinitis due to pollen 1 spray per nostril once daily 9.9 mL 5 10/30/2021 Active Additional Information Patient taking differently: 1 spray per nostril once daily prn, Reported on 09/29/2024 [id number]-[id number] K (BARIATRIC MULTIVITAMINS) 45 mg iron- 800 mcg-120 mcg Cap Take by mouth. Activ e citalopram (CELEXA) 40 MG tabletIndications: NAZ (generalized anxiety disorder),Mild episode of recurrent major depressive disorder take 1 tablet by mouth every day 90 tablet 2 11/19/2023 Active SUMAtriptan (IMITREX) 50 MG tabletIndications: Migraine with aura and without status migrainosus, not intractable Take 1 tablet (50 mg total) by mouth once as needed for migraine. Can repeat dose in 2 hours if needed. Do not exceed 2 doses in a 24 hour period. Max dose 200mg/ day 12 tablet 2 03/17/2024 Active hydrOXYzine (ATARAX) 25 MG tabletIndications: NAZ (generalized anxiety disorder) Take 1 tablet (25 mg total) by mouth 3 (three) times a day as needed for itching. 30 tablet 03/30/2024 Active riboflavin, vitamin B2, (,VITAMIN B-2,) 100 mg Tab Take 100 mg by mouth daily. Active fluconazole (DIFLUCAN) 150 MG tablet Take 1 tablet (150 mg total) by mouth daily. Can repeat dose in 72 hours if symptoms persist. 2 tablet 06/15/2024 Active albuterol 90 mcg/actuation inhalerIndications :Mild intermittent asthma without complication Inhale 2 puffs into the lungs every 6 (six) hours as needed for wheezing. 18 g 2 09/29/2024 Active busPIRone (BUSPAR) 5 MG tabletIndications: Depression with anxiety Take 1 tablet (5 mg total) by mouth 3 (three) times a day. 90 tablet 09/29/2024 Active LORazepam (ATIVAN) 0.5 MG tabletIndications: Depression with anxiety Take 1 tablet (0.5 mg total) by mouth every 6 (six) hours as needed for anxiety. 14 tablet 09/29/2024 Active ketoconazole 2 % cream Apply topically daily. 15 g 09/29/2024 Active norethindrone (MICRONOR) 0.35 mg tablet Take 1 tablet (0.35 mg total) by mouth daily. Start on 1st day of menstrual cycle. 30 tablet 11 10/06/2024 Active albuterol 90 mcg/actuation inhalerIndications :Mild intermittent asthma without complication Inhale 2 puffs into the lungs every 6 (six) hours as needed for wheezing. 18 g 2 08/26/2023 Discontinue d(Reorder) Active Problems Problem Noted Date Diagnosed Date Hx of bariatric surgery 09/29/2024 Migraine with aura and witho ut status migrainosus, not intractable 02/22/2024 Assessment & Plan (04/27/2024 11:56 AM EDT): Stable, managed on riboflavin and magnesium daily. Infrequent episodes. Will continue to monitor. Assessment & Plan (03/30/2024 3:20 PM EDT): Donna is experiencing more frequent migraines at this time. We discussed prophylactic treatment. I have recommended she begin riboflavin 400mg nightly. Additionally, discussed adding magnesium 400mg nightly if needed. If she continues to experience frequent migraines we will discuss further medication options. Assessment & Plan (02/22/2024 10:10 AM EDT): Donna is experiencing frequent migraines with aura. She is on a QAMAR, educated about risks associated with this and she is agreeable to switching back to Micronor. Did discuss other options including IUD. Encouraged to work on staying well hydrated and identifying triggers. Encouraged to follow up if frequency is not improving. Irregular menstrual bleeding 08/26/2023 Assessment & Plan (08/26/2023 2:43 PM EST): She reports irregular bleeding since she was 10. Most recently she was taking Micronor and having bleeding daily. She has discontinued this as of 08/13 and has not had bleeding since. She has not been sexually active since discontinuing. We discussed contraception options. She plans to use condoms until she is back on a medication. She would like to see OBGYN for evaluation. Referral placed today. Tonsillar calculus 08/26/2023 Assessment & Plan (08/26/2023 2:45 PM EST): She has re-current tonsil stones. She feels these are more frequent because of the protein shakes she has to drink s/p bariatric surgery. She is dislodging these using a syringe and warm water. She is finding these to be irritating and causing a frequent sore throat. She would like a referral to ENT for further eval and to discuss other options. Placed referral today. JOURDAN (obstructive sleep apnea) 01/12/2023 Assessment & Plan (02/22/2024 10:05 AM EDT): She was re-evaluated by sleep medicine and since losing weight no longer requires CPAP. Assessment & Plan (08/26/2023 2:36 PM EST): Previously recommended she use a CPAP. She reports this has not been a concern since bariatric surgery and weight loss. She is going to have a sleep study again to ensure she does not need the CPAP now. She plans to follow up with sleep medicine. Assessment & Plan (01/12/2023 8:50 AM EDT): Awaiting CPAP which is on back order. We extended her work accommodations due to her ongoing fatigue from untxd JOURDAN Benign essential hypertension 10/23/2022 Overview (08/26/2023): Prior to bariatric surgery- 05/2023. Previously managed on lisinopril. Assessment & Plan (02/22/2024 10:04 AM EDT): Stable, remains normotensive off of medication. Will continue to monitor. Assessment & Plan (08/26/2023 2:32 PM EST): Patient without elevated BP since bariatric surgery and lifestyle modifications. Assessment & Plan (01/12/2023 8:50 AM EDT): BP well controlled. Recently dx w JOURDAN. Assessment & Plan (11/21/2022 8:44 AM EDT): Change to lisinopril due to HCTZ side effect of urinary frequency. Possible ADRs of lisinopril refilled. FU here in 1-2 mos w one of my colleagues, then establish care with new [employer] MANAGER PCP in the fall. Assessment & Plan (10/23/2022 1:12 PM EDT): Lifestyle changes emphasized. Start HCTZ 25 mg FU 1 month Mixed hyperlipidemia 10/23/2022 Assessment & Plan (10/23/2022 1:12 PM EDT): Dietary changes & exercise discussed History of abnormal cervical Pap smear 9 Overview (08/28/2023): 03/2019: LGSIL 03/2020: LSIL 04/2021: ASCUS/HPV pos -> colpo early 2021 benign Plan: repeat pap in 1 year Assessment & Plan (08/26/2023 2:38 PM EST): She is due for a pap. She would like to have this done by OBGYN. Assessment & Plan (07/29/2021 3:11 PM EST): She didn't get call from [employer] yet to book appt. I gave her office number today Assessment & Plan (05/16/2020 1:21 PM EDT): Repeat pap obtained today Seasonal allergic rhinitis due to pollen 019 Assessment & Plan (08/26/2023 2:37 PM EST): Stable, managed with Clarinex and Flonase in Spring. Will continue to monitor. Assessment & Plan (11/21/2022 8:43 AM EDT): Refilled antihistamine Assessment & Plan (03/29/2019 10:07 AM EDT): Continue antihistamine, flonase & eye drops Mild intermittent asthma without complication Overview (02/17/2018): Allergy induced. Spring & early summer allergies. Uses Flovent, albuterol, Flonase and loratadine seasonally Assessment & Plan (02/22/2024 10:06 AM EDT): Stable. Rare use of albuterol. Will continue to monitor. Assessment & Plan (08/26/2023 2:33 PM EST): Stable. Rare use of albuterol. Refilled this medication today. Assessment & Plan (05/20/2021 9:11 AM EDT): Resume flovent. Fu if still needing albuterol > 2 x week after 2 weeks on flovent Assessment & Plan (05/16/2020 1:20 PM EDT): stable Assessment & Plan (03/29/2019 10:07 AM EDT): Stable. Pneumovax given today. Depression with anxiety 02/17/2018 Assessment & Plan (09/29/2024 12:29 PM EST): Donna is experiencing worsened depression and anxiety [...] weeks. Discussed crisis resources if symptoms worsen. Assessment & Plan (02/22/2024 10:07 AM EDT): Managed on citalopram 40mg, she is experiencing worsened anxiety at this time. We discussed medication adjustment vs therapy and she prefers to look for a therapist. Encouraged to increase exercise at this time as well. She will follow up if anxiety worsens. Assessment & Plan (08/26/2023 2:40 PM EST): Stable, well managed on citalopram 40mg. She states she has a strong support system. She is exercising for stress reduction. Denies SI/HI. Will continue this medication. Assessment & Plan (10/23/2022 1:09 PM EDT): continue citalopram 40 mg Assessment & Plan (10/08/2022 8:54 AM EDT): She reports she feels well on current citalopram dose and does not think her depression is causing her fatigue. Did discuss that if workup is negative we can consider modifying her dose to assess for improvement. Assessment & Plan (06/28/2020 8:49 AM EST): Responding well to citalopram. Continue 20 mg. Reach out if she feels sx not adequately controlled after 8 weeks on this dose. FU 3 mos Assessment & Plan (05/16/2020 1:21 PM EDT): As sertraline supply is low will start citalopram. Possible ADRs reviewed, Encouraged therapy. FU VV 6 weeks Assessment & Plan (06/14/2019 2:34 PM EST): [place] benefit of sertraline but reports GI side effects on it. Declines antidepressant tx at this time. Will reach out if feeling depressed again Assessment & Plan (03/29/2019 10:08 AM EDT): Start sertraline 25 mg. Possible side effects reviewed with her. Follow-up in 6 weeks, or sooner if problems. Assessment & Plan (02/17/2018 3:48 PM EDT): This has largely been situational but she doesn't feel totally back to herself. We discussed self-care, consider therapy. We briefly discussed medication. We will discuss this further at her next visit Resolved Problems Problem Noted Date Diagnosed Date Resolved Date Rash 08/26/2023 02/22/2024 Assessment & Plan (08/26/2023 2:48 PM EST): She has a recurrent rash under her right breast that is worsened with sweating. On exam this appears consistent with fungal rash. We discussed treatment of this and keeping this area as dry as possible, washing her bras frequently and using nystatin powder. She will follow up if this does not improve or worsens. Contraceptive management 10/23/2022 Assessment & Plan (10/23/2022 1:19 PM EDT): Stop QAMAR as she has HTN. Counseled on non estrogen containing methods. She opts to start POPs. Counseled on higher rate on contraceptive failure, will use condoms Malaise and fatigue 10/08/2022 08/26/19 24 Assessment & Plan (01/12/2023 8:51 AM EDT): Due to untreated JOURDAN. Awaiting CPAP Assessment & Plan (11/21/2022 8:43 AM EDT): Sx c/w JOURDAN, with other contributing factors to fatigue. Seeing sleep med tomorrow Assessment & Plan (10/23/2022 1:21 PM EDT): Referred for sleep medicine Assessment & Plan (10/08/2022 8:54 AM EDT): No concerning findings on assessment. Will do labs to look for hypothyroidism, anemia, vitamin d deficiency, and iron deficiency. Encouraged to continue diet and exercise as able. Cervical high risk HPV (akanksha n papillomavirus) test positive 01/20/2022 08/26/2023 NAZ (generalized anxiety disorder) 06/28/2020 09/29/2024 Assessment & Plan (04/27/2024 11:55 AM EDT): Donna reports significant improvement now that she is working with a therapist. Continued citalopram 40mg and has hydroxyzine to use PRN. Advised to continue to work with therapist and exercise regularly. Encouraged to follow up if experiencing worsening symptoms again. Assessment & Plan (03/30/2024 3:18 PM EDT): Donna is experiencing worsened anxiety and panic attacks at this time. She is taking citalopram 40mg, she does not want to make an adjustment to her daily medication at this time. We discussed options to be used when experiencing panic attack or heightened anxiety. Educated on medication administration, benefits, risks, and side effects profile of hydroxyzine. Encouraged to begin working with therapist and to follow up if hydroxyzine is not helping or if she is needing to take this frequently. Assessment & Plan (02/22/2024 10:08 AM EDT): Managed on citalopram 40mg, she is experiencing worsened anxiety at this time. We discussed medication adjustment vs therapy and she prefers to look for a therapist. Encouraged to increase exercise at this time as well. She will follow up if anxiety worsens. Assessment & Plan (08/26/2023 2:39 PM EST): Stable, well managed on citalopram 40mg. She states she has a strong support system. She is exercising for stress reduction. Denies SI/HI. Will continue this medication. Assessment & Plan (10/23/2022 1:08 PM EDT): Continue citalopram 40 mg Assessment & Plan (06/28/2020 8:48 AM EST): Reviewed some coping skills for anxiety. Reviewed sleep hygiene. Frequent UTI 03/29/2019 08/26/2023 Assessment & Plan (05/16/2020 1:21 PM EDT): I asked her to make appt next time sx occur. I did re-new standing order for UA reflex culture in case sx start on a weekend Assessment & Plan (03/29/2019 10:08 AM EDT): Recommend she take a cranberry supplement, 500 mg of vitamin C and probiotic daily for prevention. Next time the symptoms occur she will collect a clean-catch urine sample. Standing order was placed. Flexural eczema 03/29/2019 08/26/2023 Encounters Date Type Department Care Team Description 09/29/2024 11:00 AM EST - 09/29/2024 11:59 PM EST Hospital Encounter [facility] [address] [place] [address] Tamie Cleary CNP Discharge Disposition: Home or Self Care 09/29/2024 10:30 AM EST Office Visit [facility] [address] [place] [address] Tamie Cleary CNP Depression with anxiety (Primary Dx); Hx of bariatric surgery; Mild intermittent asthma without complication from Last 3 Months Immunizations Name Administration Dates Next Due COVID-19 (Pre-05/18) Pfizer Vaccine, mRNA, PF 09/08/2020,08/18/2020 DTaP 06/17/2000, 8,1996,10/05,1996 HPV,quadrivalent 02/17/2008,09/30/2007, 8 Hepatitis B 03/09/1997,1996,1996 Hib,PRP-T 09/05/1997, 7,1996,08/04 IPV 06/17/2000 Influenza Quadrivalent Intranasal 06/27/2014 Influenza Quadrivalent Prese rvative Free IM 04/25/2023,10/23/2022,05/24/2021,04/06 Influenza Trivalent Preserva tive Free IM 03/30/2024 Influenza Trivalent w/ Preservative IM 2 Influenza, Unspecified Formulation 03/29/2019, MMR 06/04/2001,09/05/1997 Meningococcal MCV4P 06/27/2014,02/22/2009 Pneumococcal conjugate PCV20 10/23/2022 Pneumococcal polysaccharide PPSV23 03/29/2019 Polio - OPV 1996,1996,1996 Td (adult),2 Lf Tetanus Toxo id, PF, Adsorbed 03/29/2019 Tdap 02/22/2009 Varicella 08/10/2006,06/02/1997 Family History Medical History Relation Comments No Known Problems Brother Benign prostatic hyperplasia Father WEST disease Father Diabetes Maternal Aunt Diabetes mellitus Maternal Grandfather Heart attack Maternal Grandfather Hyperlipidemia Maternal Grandfather Hypertension Maternal Grandfather Hyperlipidemia Maternal Grandmother Hypertension Maternal Grandmother Osteopenia Maternal Grandmother Anxiety disorder Mother Asthma Mother Hypothyroidism Mother Pancreatic cancer Paternal Grandfather Glaucoma Paternal Grandmother Relation Status Comments Brother Alive Father Alive Maternal Aunt Maternal Grandfather Maternal Grandmother Mother Alive Paternal Grandfather Paternal Grandmother Social History Tobacco Use Types Packs/Day Years [...] high school, GED, job training, learning the [place]ian language, technical skills, or developing parenting skills)? [...] (218 lb) 09/29/2024 10:17 AM EST Height 165.1 cm (5' 5 ) 02/22/2024 9:23 AM EDT Body Mass Index 36.28 02/22/2024 9:23 AM EDT Plan of Treatment Upcoming Encounters Date Type Department Care Team (Late st Contact Info) Description 11/02/2024 8:00 AM EDT Office Visit [facility] [address] [place] [address] Tamie Cleary, SKYLAR [address] [facility], [address] [place] [address] [email or web address] Health Maintenance Due Date Last Done Comments PAP SMEAR 08/28/2024 08/28/2023, 04/27, 05/16/2020, Additional history exists REPEAT PHQ 10/30/2024 09/29/2024, 09/29/2024 BLOOD PRESSURE 04/01/2025 09/29/2024 DEPRESSION SCREENING 09/29/2025 09/29/2024, 09/30/19 25 Adult Td,Tdap Booster 03/29/2029 03/29/2019, 009 HIB VACCINES Completed 09/05/1997, 11/24, 1996, Additional history exists MENINGOCOCCAL VACCINES (ACWY) Completed 06/27/2014, 02/22/2009 PNEUMOCOCCAL VACCINES (0-49 years) Completed 10/23/2022, 03/29/2019 HEPATITIS C SCREENING Completed 08/26/2023, 021 HIV ONE-TIME SCREENING (18-65 YEARS) Completed 08/26/2023 INFLUENZA VACCINE Completed 03/30/2024, , 10/23/2022, Additional history exists COVID-19 VACCINE Completed 05/04/2024, , 07/30/2021, Additional history exists SMOKING STATUS SCREENING (Once After 26 Yrs) Completed 09/29/2024 HEPATITIS A VACCINES Aged Out No long er eligible based on patient's age to complete this topic Medical Devices Not on file Procedures Procedure Name Priority Date/Time Associated Diagnosis Comments TSH WITH REFLEX Routine 09/29/2024 11:00 AM EST Hx of bariatric surgery VITAMIN B12 Routine 09/29/2024 11:00 AM EST Hx of bariatric surgery BASIC METABOLIC PANEL Routine 09/29/2024 11:00 AM EST Hx of bariatric surgery 25-OH VITAMIN D Routine 09/29/2024 11:00 AM EST Hx of bariatric surgery PAP TEST Routine 08/28/2023 12:00 AM EST HEPATITIS C ANTIBODY, QUALITATIVE Routine 08/26/2023 9:51 AM EST Screen for STD (sexually transmitted disease) from Last 3 Months or Most Recently Relevant to Health Maintenance Results * TSH with reflex (09/29/2024 11:00 AM EST) TSH 0.89 0.27 - 4.20 uIU/mL [facility] Blood 09/29/2024 11:0 0 AM EST 09/29/2024 11:05 AM EST Tamie Cleary SHAREPOINT SPECIALIST LAB BLOOD ORDERABLES [facility] [address] [place] [address] * 25-OH vitamin D (09/29/2024 11:00 AM EST) 25 OH VIT D (TOTAL) 32 30 - 60 ng/mL [facility] Blood 09/29/2024 11:0 0 AM EST 09/29/2024 11:05 AM EST Tamie Cleary SHAREPOINT SPECIALIST LAB BLOOD ORDERABLES Performing Organization Address [facility] Co de Phone Number [address] [address] * Vitamin B12 (09/29/2024 11:00 AM EST) VITAMIN B12 737 232 - 1,245 pg/mL [facility] Blood 09/29/2024 11:0 0 AM EST 09/29/2024 11:05 AM EST Tamie Cleary [facility] LAB BLOOD ORDERABLES Performing Organization Address [facility] de Phone Number [address] [address] * Basic metabolic panel (09/29/2024 11:00 AM EST) SODIUM 142 133 - 146 mmol/L [facility] CHLORIDE 108 96 - 108 mmol/L [facility] POTASSIUM 4.5 3.3 - 5.1 mmol/L [facility] CO2 24 21 - 35 mmol/L [facility] BUN 7 6 - 19 mg/dL [facility] CREATININE 0.70 0.5 - 1.5 mg/dL [facility] GLUCOSE 89 70 - 99 mg/dL [facility] CALCIUM 9.2 8.4 - 10.3 mg/dL [facility] EGFR >120 >59 mL/min/1.7 3m2 [facility] Comment:Estimated glomerular filtration rate calculated using the CKD-EPI refit equation. ANION GAP 15 10 - 20 mmol/L [facility] Blood 09/29/2024 11:0 0 AM EST 09/29/2024 11:05 AM EST Tamie Cleary [facility] LAB BLOOD ORDERABLES Performing Organization Address [facility] Co de Phone Number [address] [address] * Pap Test (08/28/2023 12:00 AM EST) 08/28/2023 08/31/2023 10: 00 AM EST Narrative SEE NARRATIVE - 09/04/2023 4:33 PM EST [address] [address] Process Architect: Kelsey Haskins MD ?? SERVER SUPPORT TECHNICIAN Cytology Report FINAL DIAGNOSIS A. ??PAP SMEAR (SUREPATH) CE: SPECIMEN ADEQUACY: Satisfactory for evaluation; transformation zone present. INTERPRETATION: NEGATIVE FOR INTRAEPITHELIAL LESION OR MALIGNANCY. Electronically Signed Out By: ??Maryuri Estrada MD By his/her signature above, the pathologist listed as making the Final Diagnosis certifies that he/she has personally reviewed this case and confirmed or corrected the diagnosis. The Pap test is a screening test primarily for squamous cancers and precursors and has associated false-negative and false-positive results. ??New technologies such as liquid-based preparations may decrease but will not eliminate all false-negative results. ??Regular sampling and follow-up of unexplained clinical signs and symptoms are recommended to minimize false negative results. CLINICAL HISTORY Date of Last Menstrual Period: ??08-12-2023 Contraceptive History: ??OCPs: INTERMITTANT Infection History: ??HPV: OTHER HIGH RISK, 2020 Other Clinical Conditions: ??Screening Pap Abnormal PAP: ASCUS, 2020 SPECIMEN SOURCE A: PAP SMEAR (SUREPATH) CE Patient Name: ??DONNA DOWNS : ??1995 (Age: 28) Sex: ??F Institution: ??[facility] Location: ??[facility] Date of Collection: ??08/28/2023 Date of Reported: ??09/04/2023 16:33 Results to: Raquel Nielson MD Raquel Nielson MD CYTOLOGY ORDERABLES SEE NARRATIVE * Hepatitis C antibody, qualitative (08/26/2023 9:51 AM EST) HCV NON-REACTIV E NON-REACTI VE [facility] Blood 08/26/2023 9:51 AM EST 08/26/2023 10:05 AM EST Tamie Cleary SHAREPOINT SPECIALIST LAB BLOOD ORDERABLES [facility] [address] [place] [address] from Last 3 Months or Most Recently Relevant to Health Maintenance Care Teams Study Abroad Coordinator Relationship Specialty Start Date End Date Tamie Cleary CNP [address] [place] [address], [address] [place] [address] [email or web address] PCP - General Nurse Practitioner 06/24/23 Additional Source Comments The information contained in this document represents components of the legal health record. It is not the complete legal health record.[facility]
== END 2024-10-12 11:06 | disposition home or self-care (01) ==
LOC: HO.HBS 11:01
PROVIDERS: PCP Family Medicine; Visit Provider Physician Assistant Surgical
DX: E66.812 Obesity, class 2 (principal); Z68.36 Body mass index [BMI] 36.0-36.9, adult; Z98.84 Bariatric surgery status
CPT/HCPCS: 99214

== ENCOUNTER 2024-12-26 12:18 | Outpatient (AMB) | payer OTHER, SELFPAY ==
--- NOTE | 2024-12-26 11:24 | MHC.OFFVISWM ---
VS Expanded 12/26/24 11:27 Height 5 ft 4 in Weight 208 lb BMI 35.7 Intake Visit Reasons: TELEPHONE PO GBP 07/27/17 Allergies benzonatate Allergy (Intermediate, Verified 03/17/24 09:51) Hives almond Allergy (Mild, Verified 03/17/24 09:51) throat itching jackfruit Allergy (Intermediate, Uncoded 03/17/24 09:51) Swelling Medication List - Last Reconciled 12/26/24 by GRACIE Kang buspirone 5 mg PO DAILY citalopram 40 mg PO DAILY desloratadine 5 mg PO DAILY PRN epinephrine 0.3 mg IM Q4H PRN fluticasone propionate 110 mcg/actuation (Flovent HFA) 1 puff inhalation BID PRN lorazepam 0.5 mg PO BID PRN [id number]-[id number]-vit K 45 mg iron- 800 mcg-120 mcg (Bariatric Multivitamins) caps PO HPI Comments Details: This?is a?29?yo female who is s/p LSG 06/17/2023. Presents for 19 month month post op visit. Weight at last visit on 10/13/2023 was 212 pounds, weight today is 208lbs. No complaints of nausea, emesis, abdominal pain or reflux, or constipation. Continues to work with therapist every 2 weeks. Stress level reduced, fewer panic attacks. 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 Brother Seasonal allergies Maternal Grandfather Heart attack Social History Household Members: Spouse Housing: House Are you a primary child care attendant school to a significant other at home: No Do you presently have visiting nurse or other home services: No Alcohol intake: current Alcohol intake frequency: does not drink Patient Tobacco Use Status: Never used Tobacco service: No Telehealth Telehealth Telehealth Platform: Telephone Location of provider rendering services: practice address Location of patient: address on file Patient Identification confirmed using: Name, : Yes Telehealth method: voice only Patient verbally consented to treatment: Yes Patient verbally consented to billing insurance company: Yes Patient informed of any privacy concerns related to visit: Yes Minutes spent on Phone/Video with Pt.: 16 Assessment & Plan Assessment & Plan (1) Obesity: Code(s): E66.9 - Obesity, unspecified Category: Medical (2) S/P laparoscopic sleeve gastrectomy: Code(s): Z98.84 - Bariatric surgery status Category: Surgical Plan Pt feels she is doing better with nutrition, increased her exercise with hiking, and most importantly feels like her mental health is much improved. She did not have labs done, will go. RTC 3mo.
[2024-12-26 11:27] VITALS: BMI 35.7
== END 2024-12-26 12:18 | disposition home or self-care (01) ==
LOC: HO.HBS 12:18
PROVIDERS: PCP Family Medicine; Visit Provider Physician Assistant Surgical
DX: E66.9 Obesity, unspecified (principal); Z98.84 Bariatric surgery status
CPT/HCPCS: 99214